=== PATIENT | female | born 1945 | race Caucasian/White ===

== ENCOUNTER → 2022-04-01 14:28 | Outpatient (CLI) | payer MEDICARE, SELFPAY ==
--- NOTE | ~2022-04-01 | DEXA_ITS ---
Bone Density Report Name: ANALI ERICKSON Age: 77 Sex: Female Ethnicity: White Date of : 1945 Indication: osteopenia; height loss; postmenopausal Referring Provider: YRN SOW Study: Bone densitometry was performed. Exam Date: April 01, 2022 Accession number: [id number] Bone Density: Region BMD T-score Z-score Classification AP Spine (L1-L4) 0.897 -1.4 1.1 Osteopenia Femoral Neck (Left) 0.581 -2.4 -0.2 Osteopenia Total Hip (Left) 0.752 -1.6 0.3 Osteopenia Femoral Neck (Right) 0.570 -2.5 -0.3 Osteoporosis Total Hip (Right) 0.739 -1.7 0.2 Osteopenia Total Hip Mean 0.746 -1.7 0.3 Osteopenia World Health Organization criteria for BMD impression classify patients as: Normal (T-score at or above -1.0), Osteopenia (T-score between -1.0 and -2.5), or Osteoporosis (T-score at or below -2.5). 10-year Fracture Risk: FRAX not reported because: Some T-score for Spine Total or Hip Total or Femoral Neck at or below -2.5 Previous Exams: Region Exam Age BMD T-score BMD Change BMD Change Date g/cm2 vs Baseline vs Previous AP Spine(L1-L4) 04/01/2022 77 0.897 -1.4 0.061* -0.047* 04/11/2019 74 0.943 -0.9 0.108* 0.009 01/25/2016 70 0.935 -1.0 0.099* 0.021 08/06/2012 67 0.914 -1.2 0.079* 0.026* 08/04/2010 65 0.888 -1.4 0.053* 0.010 07/03/2009 64 0.878 -1.5 0.043* 0.049* 06/16/2008 63 0.829 -2.0 -0.006 -0.006 01/23/2006 60 0.835 -1.9 Total Hip(Left) 04/01/2022 77 0.752 -1.6 -0.016 -0.029* 04/11/2019 74 0.781 -1.3 0.013 -0.005 01/25/2016 70 0.786 -1.3 0.018 -0.014 08/06/2012 67 0.801 -1.2 0.033* 0.030* 08/04/2010 65 0.771 -1.4 0.003 -0.071* 07/03/2009 64 0.841 -0.8 0.073* 0.095* 06/16/2008 63 0.746 -1.6 -0.022 -0.022 01/23/2006 60 0.768 -1.4 Total Hip(Right) 04/01/2022 77 0.739 -1.7 -0.061* -0.009 04/11/2019 74 0.748 -1.6 -0.052* -0.031* 01/25/2016 70 0.779 -1.3 -0.021 0.014 08/06/2012 67 0.766 -1.4 -0.035* 0.018 08/04/2010 65 0.748 -1.6 -0.052* -0.050* 07/03/2009 64 0.798 -1.2 -0.003 0.067* 06/16/2008 63 0.730 -1.7 -0.070* -0.070* 01/23/2006 60 0.800 -1.2 *Denotes significance at 95% confi
== END ==
PROVIDERS: PCP Family Medicine Adolescent Medicine; Visit Provider Family Medicine Adolescent Medicine
DX: Z78.0 Asymptomatic menopausal state (principal); M85.88 Other specified disorders of bone density and structure, other site; M81.0 Age-related osteoporosis without current pathological fracture; M85.852 Other specified disorders of bone density and structure, left thigh
CPT/HCPCS: 77080

== ENCOUNTER 2024-05-22 07:28 | Day surgery (SDC) | payer MEDICARE, SELFPAY ==
[2024-05-06 11:47] VITALS: BMI 19.1
[2024-05-08 12:34] VITALS: BMI 19.3
[2024-05-22 08:14] VITALS: BP 132/70; PULSE 77; RESP 18; TEMP 36.8; O2SAT 100; BMI 18.3
[2024-05-22] MEDS: LACTATED RINGERS 1,000 ML 150 ML IV CONT (08:28)
--- NOTE | 2024-05-22 08:44 | WPDANESEPPF ---
Anes - Initial Pre Proc Eval Procedure: Operation Date: 05/22/24 09:30 Proposed Procedures p Screening Colonoscopy - Emeka Torres MD Date/Time: 05/22/24 08:44 Surgeon: Emeka Torres MD Pre Op Diagnosis: Screening neoplasm of the colon Patient Data Age: 79 Gender: F Height: 1.55 m Weight: 44.2 kg Last Vital Signs Temp 36.8 C 05/22/24 08:14 Pulse 77 05/22/24 08:14 Resp 18 05/22/24 08:14 BP 132/70 05/22/24 08:14 Pulse Ox 100 05/22/24 08:14 O2 Del Method Room Air 05/22/24 08:14 Allergies Allergy/AdvReac Type Severity Reaction Status Date / Time No Known Allergies Allergy Verified 05/22/24 08:11 Home Medications Medication Instructions Recorded Confirmed Type calcium citrate 315 mg 2 tablet PO BID 01/21/22 05/22/24 History calcium-vitamin D3 6.25 mcg (250 unit) tablet (Citracal + Vitamin D Maximum) flaxseed oil 1,000 mg capsule 1,000 mg PO DAILY 01/21/22 05/22/24 History ([place]-3 Flaxseed Oil) alendronate 70 mg tablet See Rx Instructions .Route 03/04/24 05/22/24 Rx .COMPLEX #12 tabs Patient hx anesthesia problems: none Family hx anesthesia problems: none Results Review: All pre-operative results and documents have been reviewed as part of the pre-operative evaluation. PMFSH Past Medical History Medical History Osteopenia Family History Family History Father Dementia Mother Breast cancer Carcinoma of colon Social History Social History Smoking status: Never smoker Second hand tobacco smoke exposure: No Alcohol intake: current Drinks per week: 1 Substance use: never Substance use type: does not use Living arrangements: alone Occupation/Education: retired Gender identity (if verbalized by the patient): Female Sexual Orientation (if Verbalized by the Patient): Straight or Heterosexual Spiritual care concerns: No Agree to blood products: Yes Anes - Eval Final PreProcedure Day of Procedure 05/22/24 08:44 Patient weight: normal Heart: regular rate and rhythm Lungs: clear to auscultation Airway: Mallampati scale class 1 Neurological: alert and oriented Last oral intake: >/= 8 hours ASA classification: II Emergent: no Anesthetic plan: proceed Anesthesia type and monitoring: general GIVS Results Review: All pre-operative results and documents have been reviewed as part of the pre-operative evaluation. Informed Consent: The patient's anesthetic plan and its attendant risks and benefits were discussed with the patient/family/POA. Questions were solicited and answers provided to the satisfaction of the patient/family/POA.
--- NOTE | 2024-05-22 09:04 | P.HP_ITS ---
History of Present Illness History of Present Illness Consent: Risks, benefits, and alternatives have been discussed and questions answered. Patient agrees to proceed with procedure. Chief complaint: Screening neoplasm of the colon Narrative: Elba Sandoval is a 79 year old female presents for screening colonoscopy. Patient's current weight appetite and bowel movements are normal. Patient denies abdominal pain. She has had no bleeding. Family history is significant that her mother had colon cancer at an elderly age. Additionally her sister had several small colon polyps. Patient has never slowly had a colonoscopy. Review of Systems Review of Systems: All systems reviewed & are unremarkable except as noted in HPI and below PMFSH Past Medical History Medical History Osteopenia Family History Family History Father Dementia Mother Breast cancer Carcinoma of colon Social History Social History Smoking status: Never smoker Second hand tobacco smoke exposure: No Alcohol intake: current Drinks per week: 1 Substance use: never Substance use type: does not use Living arrangements: alone Occupation/Education: retired Gender identity (if verbalized by the patient): Female Sexual Orientation (if Verbalized by the Patient): Straight or Heterosexual Spiritual care concerns: No Agree to blood products: Yes Meds Home Medications and Allergies Home Medications Medication Instructions Recorded Confirmed Type calcium citrate 315 mg 2 tablet PO BID 01/21/22 05/22/24 History calcium-vitamin D3 6.25 mcg (250 unit) tablet (Citracal + Vitamin D Maximum) flaxseed oil 1,000 mg capsule 1,000 mg PO DAILY 01/21/22 05/22/24 History ([place]-3 Flaxseed Oil) alendronate 70 mg tablet See Rx Instructions .Route 03/04/24 05/22/24 Rx .COMPLEX #12 tabs Allergies Allergy/AdvReac Type Severity Reaction Status Date / Time No Known Allergies Allergy Verified 05/22/24 08:11 Vital Signs Vital Signs - 24 hr 05/22/24 08:14 Temperature 98.2 F Pulse Rate 77 Respiratory Rate 18 Blood Pressure 132/70 Pulse Oximetry 100 Oxygen Delivery Room Air Exam Narrative: Physical exam reveals patient to be alert. Vital signs stable. HEENT exam is unremarkable. Patient is is are clear to auscultation and to percussion part is without murmur or extra sounds. Abdomen bowel sounds are present soft nontender with no organomegaly. Digital external rectal exam normal. Assessment and Plan Assessment and plan (1) Colon cancer screening: Code(s): Z12.11 - Encounter for screening for malignant neoplasm of colon Status: Acute Assessment and Plan: Patient referred for neoplasia SP. Family history is significant her mother had colon cancer, and sister had a polyp. Further recommendations may be given after endoscopy.
[2024-05-22 10:03] VITALS: BP 109/55; PULSE 78; RESP 16; O2SAT 100
[2024-05-22 10:13] VITALS: BP 105/54; PULSE 69; RESP 16; O2SAT 100
--- NOTE | 2024-05-22 10:16 | WPDANESPN ---
Anes - Prog Note Post-Op Date/Time: 05/22/24 10:16 Cardiovascular status: normal Respiratory status: normal Airway patency: baseline Mental status: baseline Post-Op hydration status: normal Vital Signs: Last Vital Signs Temp 36.8 C 05/22/24 08:14 Pulse 78 05/22/24 10:03 Resp 16 05/22/24 10:03 BP 109/55 L 05/22/24 10:03 Pulse Ox 100 05/22/24 10:03 O2 Del Method Room Air 05/22/24 10:03 Pain Score (VAS): 0 I/O: Intake & Output 05/21/24 05/22/24 05/22/24 23:59 07:59 15:59 Intake Total 600 Balance 600 Post-procedural complaints: none Patient Feedback: Patient satisfied with anesthetic care. Other Findings: Patient vital signs back to baseline. Patient denies nausea and vomiting. Patient's pain under control. Patient OK for discharge.
[2024-05-22 10:23] VITALS: BP 114/63; PULSE 73; RESP 16; O2SAT 100
== END 2024-05-22 10:40 | disposition home or self-care (01) ==
PROVIDERS: PCP Family Medicine Adolescent Medicine; Visit Provider Internal Medicine Gastroenterology
PROC: 0DJD8ZZ Inspection of Lower Intestinal Tract, Via Natural or Artificial Opening Endoscopic (ICD-10-PCS; CPT 45378; principal; 2024-05-22 09:30)
DX: Z12.11 Encounter for screening for malignant neoplasm of colon (principal); D12.3 Benign neoplasm of transverse colon; K64.8 Other hemorrhoids; D37.4 Neoplasm of uncertain behavior of colon
CPT/HCPCS: 45385; 45380

== ENCOUNTER 2024-05-22 07:48 | Outpatient (NON) | payer MEDICARE, SELFPAY | END 2024-05-22 07:49 | disposition home or self-care (01) | LOC: ANHLAB 05-23 07:49 | PROVIDERS: PCP Family Medicine Adolescent Medicine; Visit Provider Internal Medicine Gastroenterology | DX: Z12.11 Encounter for screening for malignant neoplasm of colon (principal); C18.0 Malignant neoplasm of cecum; D12.3 Benign neoplasm of transverse colon | CPT/HCPCS: 88305; 88342 ==

== ENCOUNTER 2024-05-28 13:17 | Outpatient (CLI) | payer MEDICARE, SELFPAY ==
--- NOTE | ~2024-05-28 | DEXA_ITS ---
Bone Density Report Name: ANALI ERICKSON Age: 79 Sex: Female Ethnicity: White Date of : 1945 Indication: postmenopausal; screening for osteoporosis; height loss; Referring Provider: YRN OSW Study: Bone densitometry was performed. Exam Date: May 28, 2024 Accession number: [id number] Bone Density: Region BMD T-score Z-score Classification AP Spine(L1-L4) 0.968 -0.7 1.9 Normal Femoral Neck (Left) 0.581 -2.4 -0.1 Osteopenia Total Hip (Left) 0.735 -1.7 0.3 Osteopenia Femoral Neck (Right) 0.607 -2.2 0.1 Osteopenia Total Hip (Right) 0.698 -2.0 0.0 Osteopenia Total Hip Mean 0.717 -1.9 0.2 Osteopenia World Health Organization criteria for BMD impression classify patients as: Normal (T-score at or above -1.0), Osteopenia (T-score between -1.0 and -2.5), or Osteoporosis (T-score at or below -2.5). 10-year Fracture Risk: FRAX not reported because: Treated for osteoporosis Clinical Information Provided by Patient: Is being treated for osteoporosis Has used the following medications: Fosamax (i.e. alendronate), Vitamin D, Calcium Patient maximum height was 62 Menopause Age: 50 Drinks caffeinated beverages Onset of menses at age 15 Number of children 1 Impression: The patient has low bone mass, based on the Left Femoral Neck T-score. Discussion: It is important to ask patients whether they are taking their medications and to encourage continued and appropriate compliance with their osteoporosis therapies to reduce fracture risk. It is also important to review their risk factors and encourage appropriate calcium and vitamin D intakes, exercise, fall prevention and other lifestyle measures. Follow-Up: Consider a repeat BMD and Vertebral Fracture Assessment (VFA) exam in 2 years or sooner if medically necessary, to reassess this patient's status. Reported by: CRICKET on 05/28/2024 1:52:00 PM. Reviewed, dictated and finalized at location ADemetra ROSADO
--- NOTE | ~2024-05-28 | MM_ITS ---
EXAMINATION: MM screening baldemar BI w kosta HISTORY: Screening mammogram, family history of breast cancer in her mother. TECHNIQUE: Craniocaudal and mediolateral oblique 3-D tomosynthesis images were obtained and synthetic 2-D images were generated. CAD analysis was submitted and interpreted. COMPARISON: 04/11/2019, 08/06/2012 BREAST PARENCHYMAL COMPOSITION:Dense: The breasts are heterogeneously dense, which may obscure small masses. FINDINGS: No suspicious mass, calcification, or architectural distortion are identified in either konrad ast to suggest malignancy. There has been no suspicious interval change. IMPRESSION: No mammographic evidence of malignancy. Recommend routine screening mammography in one year. BI-RADS Category 1: Negative Reviewed, dictated and finalized at location .
== END 2024-05-28 13:18 | disposition home or self-care (01) ==
LOC: ANHIMG 13:17
PROVIDERS: PCP Family Medicine Adolescent Medicine; Visit Provider Family Medicine Adolescent Medicine
DX: Z12.31 Encounter for screening mammogram for malignant neoplasm of breast (principal); N95.9 Unspecified menopausal and perimenopausal disorder; Z78.0 Asymptomatic menopausal state; Z80.3 Family history of malignant neoplasm of breast
CPT/HCPCS: 77063; 77067; 77080

== ENCOUNTER 2024-06-27 11:46 | Outpatient (CLI) | payer MEDICARE, SELFPAY ==
--- NOTE | 2024-06-27 12:40 | ECG_ITS ---
Test Date: 2024-06-27 12:46:06 Measurements Intervals [place] Rate: 62 P: 64 ID: 150 QRS: 50 QRSD: 78 T: 37 QT: 393 QTc: 402 Interpretive Statements SINUS RHYTHM NORMAL ELECTROCARDIOGRAM No previous ECG available for comparison Electronically Signed On 06-27-2024 16:09:32 CDT by Tomasz Mott M.D.
[2024-06-27 12:56] LABS: Hematocrit 28.6 % (37.0-47.0); Mean Corpuscular HGB Conc 31.5 g/dl (32-36); Mean Corpuscular Hemoglobin 24.1 pg (26-34); Mean Corpuscular Volume 76.5 fl (80-100); Mean Platelet Volume 9.9 fl (7.4-10.4); Platelet Count Result 469 k/mm3 (150-375); Red Blood Count 3.74 M/mm3 (4.2-5.4); Red Cell Distribution Width 17.6 % (11.5-14.5); White Blood Count 9.6 K/mm3 (4.5-10.0)
[2024-06-27 13:36] LABS: Carcinoembryonic Antigen 68.9 ng/mL (0.0-3.0)
== END 2024-06-27 11:47 | disposition home or self-care (01) ==
LOC: ANHSURGERY 11:50
PROVIDERS: PCP Family Medicine Adolescent Medicine; Visit Provider Surgery
DX: Z01.818 Encounter for other preprocedural examination (principal); C18.0 Malignant neoplasm of cecum
CPT/HCPCS: 36415; 82378; 85027; 86850; 86900; 86901; 93005

== ENCOUNTER 2024-06-28 13:41 | Outpatient (CLI) | payer MEDICARE, SELFPAY ==
--- NOTE | ~2024-06-28 | CT_ITS ---
CT chest abdomen pelvis w con Ordering provider: Robbi Acevedo DO History: 79 years Female with . 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 Comparison: None. Technique: CT chest with IV contrast. CT abdomen and pelvis CT abdomen and pelvis with IV and with or al contrast. Radiation reduction technique utilized. The dose-length product was 265.6 mGy-cm. FINDINGS: CHEST: --VISUALIZED THORACIC INLET: Normal. --MEDIASTINUM: Aorta/coronary arteries: The thoracic aorta is normal. Ascending aorta measures 3 cm. Minimal pericar dial effusion. Heart/other: The heart is not enlarged. Lymph nodes: No mediastinal or hilar adenopathy. --LUNGS: Nodule is seen in the right lower lobe measuring 5 mm. Nodule is seen in the left lower lobe measuring 3 mm. Tiny nodule in the right middle lobe is possible. Left pleural base nodule also seen measuring 5 mm. Atelectatic changes in the left lower lobe. No pulmonary masses. No infiltrates or e ffusions. No pneumothorax. --MUSCULOSKELETAL: Soft tissues: The superficial soft tissues are normal. Bones: Age appropriate degenerative changes of the spine. No suspicious bony lytic or sclerotic lesio ns. Levoscoliosis. Increased kyphosis. ABDOMEN/PELVIS: --MUSCULOSKELETAL: Bones: Age appropriate degenerative changes of the spine. No suspicious bony lytic or sclerotic lesio ns. Superficial soft tissues: The superficial soft tissues are normal. --UPPER ABDOMINAL ORGANS: Liver: Mild fat infiltration. Gallbladder: Normal. Spleen: Normal. Stomach/duodenum: Slightly thickened wall of the bilateral. Pancreas: Normal. Adrenals: Normal. Kidneys: Tiny cyst in the right kidney upper pole. --PELVIC ORGANS: The bladder shows slightly thickened wall. No bladder stones. Congested vessels are seen around the uterus suggestive of varicosities which indicate pelvic congestion syndrome. Colon: No evidence of diverticulitis. Soft tissue density in the cecum which is most likely a mass. C olonoscopy advised. Fecal material is loaded in the colon. No evidence of appendicitis. Small Bowel: Normal. No obstruction. Peritoneum/mesentery: No free air or free fluid. No mesenteric lymphadenopathy. --RETROPERITONEUM: Normal aorta. No retroperitoneal lymphadenopathy. IMPRESSION: CHEST: 1. No acute cardiopulmonary pathology. 2. Minimal pericardial effusion. 3. Multiple nodules with the largest measuring 5 mm. 6 months follow-up CT is advised. ABDOMEN/PELVIS: 1. Soft tissue density in the cecum suggestive of a mass. Colonoscopy advised. 2. Constipation 3. Prominent vessels in both sides of the pelvis suggestive of pelvic congestion syndrome. 4. Minimal fat infiltration of the liver. Reviewed, dictated and finalized at location A. IMPRESSION: CHEST: 1. No acute cardiopulmonary pathology. 2. Minimal pericardial effusion. 3. Multiple nodules with the largest measuring 5 mm. 6 months follow-up CT is advised. ABDOMEN/PELVIS: 1. Soft tissue density in the cecum suggestive of a mass. Colonoscopy advised. 2. Constipation 3. Prominent vessels in both sides of the pelvis suggestive of pelvic congesti on syndrome. 4. Minimal fat infiltration of the liver.
== END 2024-06-28 13:42 | disposition home or self-care (01) ==
PROVIDERS: PCP Family Medicine Adolescent Medicine; Visit Provider Surgery
DX: K59.00 Constipation, unspecified (principal); R91.8 Other nonspecific abnormal finding of lung field; C18.0 Malignant neoplasm of cecum
CPT/HCPCS: 71260; 74177; Q9967

== ENCOUNTER 2024-07-09 12:58 | Inpatient (IN) | payer MEDICARE, SELFPAY ==
[2024-06-27 11:54] VITALS: BMI 19.4
--- NOTE | 2024-06-27 12:13 | PC.NURSE ---
Report to the Outpatient Waiting Room, entrance under the green pavilion located off [facility], at time _7:30 AM on date 07/09/24 . Planned Procedure Time: __9:30 AM .? Time changes happen often and if your time is changed the preop area will call you the afternoon before. - You and your visitor will be asked to self-screen and do not enter if you have any COVID symptoms. Please call surgeon if you need to reschedule. - A mask is optional within the hospital at this time. Patients may have clear liquids (water, carbonated beverages, clear teas, apple juice) until 3 hours prior to surgery( 6:30 AM) with a maximum of 20 ounces. - No food from midnight until time of surgery and no smoking - Infants may have breast milk until 4 hours before surgery, formula 6 hours prior to surgery. - Children will be allowed to drink immediately following surgery.? If applicable, please bring a bottle or sippy cup to assist with drinking. Juice, water, soda, and popsicles are readily available.? For infants on formula, please bring formula the day of surgery.? Pacifiers are allowed. Take only the following medications with a SIP of water on the morning of surgery: NONE DO NOT STOP ANY OF YOUR OTHER PRESCRIPTION MEDICATIONS PRIOR TO SURGERY EXCEPT THE FOLLOWING Medications to discontinue per physician _HOLD ALL VITAMINS AND SUPPLEMENTS 3 DAYS PRE OP. Date to take last dose__07/05/[address] OLMSTEAD ENSURE BUNDLE PACK PER DR OLMSTEAD [facility] SHOWER DAY BEFORE SURGERY AND MORNING OF SURGERY Please no make-up, nail upper sorbian, hairspray, perfume, deodorant, or body powder the day of surgery.? No jewelry (including any body piercings) or valuables the day of surgery, leave them at home.? Please take a shower or bath the night before, or the morning of, surgery with an antibacterial soap.? Wear comfortable, loose fitting clothing.? Children are encouraged to wear pajamas. - Jewelry must be removed prior to entering the operating room.? Rings and piercings that are not removed may be cut off. - The hospital will not accept responsibility for valuables.? - Please leave all valuables, including medications, at home the day of surgery. If you are going home after surgery, a licensed route delivery service driver must drive you home.? - NO public transportation without another adult if you receive anesthesia. - We recommend that an adult stay with you for 24 hours following discharge. - We also recommend that you do not drive, make important decision, drink alcoholic beverages, or take any drugs that were not prescribed by your health care provider for at least 24 hours after your discharge time. Follow any additional instructions given to you from your surgeon. VERBAL AND WRITTEN instructions given to ___PATIENT and asked if any additional questions and then verbalized understanding. Patient advised to call surgeon office or pre surgery nurse liaison [phone] if any additional questions.
[2024-06-27 12:39] VITALS: BP 122/57; PULSE 69; RESP 18; TEMP 37.4; O2SAT 98
[2024-07-09] VITALS (13 sets, daily range): BP systolic 96–133; BP diastolic 42–75; PULSE 65–83; RESP 12–20; TEMP 35.9–37.1; O2SAT 94–100; BMI 19.6
[2024-07-09] MEDS: LACTATED RINGERS 1,000 ML 30 ML IV CONT ×2 (07:55→11:42)
[2024-07-09] MEDS: ACETAMINOPHEN 500 MG TABLET 1000 MG PO (08:05)
[2024-07-09] MEDS: KETOROLAC 15 MG/ML VIAL (*BKC) IV PUSH (08:06)
--- NOTE | 2024-07-09 08:13 | WPDANESEPPF ---
Anes - Initial Pre Proc Eval Procedure: Operation Date: 07/09/24 09:30 Proposed Procedures p Laparoscopic Right Hemicolectomy Davinci Assisted - Robbi Acevedo DO Date/Time: 07/09/24 08:13 Surgeon: Robbi Acevedo DO Pre Op Diagnosis: cecal cancer Patient Data Age: 79 Gender: F Height: 1.52 m Weight: 45.1 kg Last Vital Signs Temp 37.4 C 06/27/24 12:39 Pulse 69 06/27/24 12:39 Resp 18 06/27/24 12:39 BP 122/57 L 06/27/24 12:39 Pulse Ox 98 06/27/24 12:39 O2 Del Method Room Air 06/27/24 12:39 Allergies Allergy/AdvReac Type Severity Reaction Status Date / Time No Known Allergies Allergy Verified 07/09/24 07:41 Home Medications Medication Instructions Recorded Confirmed Type calcium 315 mg (as 2 tablet PO BID 01/21/22 07/09/24 History citrate)-vitamin D3 6.25 mcg (250 unit) tablet (Citracal + Vitamin D Maximum) flaxseed oil 1,000 mg capsule 1,000 mg PO DAILY 01/21/22 07/09/24 History ([place]-3 Flaxseed Oil) alendronate 70 mg tablet See Rx Instructions .Route 03/04/24 07/09/24 Rx .COMPLEX #12 tabs ciprofloxacin HCl 500 mg tablet See Rx Instructions .Route 06/24/24 07/09/24 Rx .COMPLEX #1 tablet metronidazole 500 mg tablet See Rx Instructions .Route 06/24/24 07/09/24 Rx .COMPLEX #3 tabs multivitamin 1 tablet PO DAILY 06/27/24 07/09/24 History Patient hx anesthesia problems: none Family hx anesthesia problems: none Results Review: All pre-operative results and documents have been reviewed as part of the pre-operative evaluation. [facility] Past Medical History Medical History Cecal cancer Osteopenia Surgical History Surgical History History of colonoscopy 05/22/24 Dr. Torres Family History Family History Father Dementia Mother Breast cancer Carcinoma of colon Social History Social History Smoking status: Never smoker Second hand tobacco smoke exposure: No Alcohol intake: current Drinks per week: 1 Substance use: never Substance use type: does not use Do You Feel Safe in your Home?: Yes Lack of Transportation: No Lack of Food: Never True Current Housing: I Have Housing Concerned About Future Housing: No Difficulty Paying Gas/Electric Bills: No Difficulty Paying for Meds: No Currently Unemployed: No Education: Master's Degree or Higher Difficulty w/ Childcare or Family Care: No Living arrangements: alone Occupation/Education: retired Gender identity (if verbalized by the patient): Female Sexual Orientation (if Verbalized by the Patient): Straight or Heterosexual Spiritual care concerns: No Agree to blood products: Yes Anes - Eval Final PreProcedure Day of Procedure 07/09/24 08:13 Patient weight: normal Heart: regular rate and rhythm Lungs: clear to auscultation Airway: Mallampati scale class 1 Neurological: alert and oriented Last oral intake: >/= 8 hours ASA classification: III Emergent: no Anesthetic plan: proceed Anesthesia type and monitoring: general ETT and standard monitoring Results Review: All pre-operative results and documents have been reviewed as part of the pre-operative evaluation. Informed Consent: The patient's anesthetic plan and its attendant risks and benefits were discussed with the patient/family/POA. Questions were solicited and answers provided to the satisfaction of the patient/family/POA.
--- NOTE | 2024-07-09 08:34 | WPDHPUPDATE1 ---
History and Physical Update Update Date/Time: 07/09/24 08:34 History and Physical has been reviewed, including an updated exam of the patient. There are NO changes in the patient's condition. Risks, benefits, and alternatives have been discussed and questions answered. Patient agrees to proceed with procedure.
[2024-07-09] MEDS: ceFAZolin 2 GM/D5W 50 ML 2 GM/50 ML BAG IVPB (09:00)
[2024-07-09] MEDS: metroNIDAZOLE 500 MG/ISO 100ML 500 MG/100 ML BAG 100 MG IVPB (09:18)
[2024-07-09] MEDS: BUPIVACAINE/EPINEPHRINE 0.5% 50 ML VIAL 30 ML INFILTRATE (09:39)
[2024-07-09] MEDS: INDOCYANINE GREEN 25 MG VIAL WITH DILUENT 3.75 MG IV PUSH (10:24)
--- NOTE | 2024-07-09 11:40 | W.PM.PROC2 ---
Procedure Note - Detailed Date of Procedure 07/09/24 Pre-op Diagnosis cecal cancer Post-op Diagnosis Same Procedure Performed Laparoscopic right hemicolectomy with ileocolic anastomosis, da Valentin assisted Surgeon Robbi Acevedo, Anesthesia General and Local (0.5% bupivacaine with epinephrine) Description of Procedure Procedure as well as risks, benefits, and alternatives were discussed with the patient.? Written consent was obtained and placed in chart prior to procedure.? Patient was brought back to surgical suite.? She was placed supine on operating table.? Time-out was done to confirm patient and procedure.? She was then intubated by the anesthesia department.? Her abdomen was prepped and draped in sterile fashion using chlorhexidine prep.? An 8 mm incision was made in the left upper quadrant and a 5 mm Optiview trocar was advanced through the abdominal layers under direct visualization.? Once inside the abdominal cavity, carbon dioxide insufflation was used to create a pneumoperitoneum.? Camera was inserted in the abdomen was inspected.? The patient was placed in 5 degree Trendelenburg and 5? rotated left an 8 mm incision was made in the suprapubic region in midline and an 8 mm trocar was inserted under direct visualization. Another 8 mm incision was made in the left lower quadrant and an 8 mm trocar was inserted under direct visualization.? A 12 mm incision was made in the left lateral abdomen and a 12 mm trocar was inserted under direct visualization.? An 5 mm incision was made in the left lower quadrant and an 5 mm assist port was placed under direct visualization.? The 5 mm left upper quadrant port was then removed and exchanged for an 8 mm port.? The robotic arms were then brought up to the patient's bedside and secured to the ports.? The camera and instruments were then inserted.? I then moved over to the robotic console and took control of the camera and instruments.? Thorough inspection was made around the abdominal cavity.? The omentum was then reflected cephalad over the transverse colon.? The area near the ileocecal valve was grasped and retracted anterior and laterally to tent up the ileocolic pedicle.? Scissors with electrocautery were then used to perform the medial to lateral dissection.? I entered into the avascular plane just inferior to the ileocolic pedicle and carefully dissected cephalad to identify the duodenum.? Once the duodenum was identified and then continued sweeping the retroperitoneal structures posteriorly and then isolated the ileocolic pedicle.? A high ligation of the ileocolic vessels was then performed using the vessel sealer.? Hemostasis appeared adequate.? The medial to lateral dissection was then continued cephalad towards the hepatic flexure.? I continued this dissection until I created a window in the hepatocolic ligament.? I then took down the hepatic flexure using the vessel sealer and then continued this dissection caudally along the lateral peritoneal reflections of the ascending colon.? The root of the mesentery at the terminal ileum was then also taken down using scissors with electrocautery to allow adequate mobilization of the terminal ileum up to the transverse colon.? I then used the vessel sealer to continue taken down the mesentery of the terminal ileum all the way to the point of transection and then I also took down the mesocolon towards the point of transection for the transverse colon.? The right branch of the middle colic artery was ligated as the mesocolon was taken down using the vessel sealer.? Indocyanine green was then infused to ensure adequate perfusion to the proximal and distal limbs.? I confirmed adequate perfusion at the point of transection and then used a 60 mm blue load stapler to come across the terminal ileum.? I then identified my point for? proximal transverse colon transection and again came across the colon at this point with a 60 mm blue load stapler.? Once this was done the right colon was c
--- NOTE | 2024-07-09 13:14 | ADMGEN ---
This patient, Elba Sandoval, was admitted to [facility] Surg Room 330-02. Patient/family oriented to hospital policies and general routines including ID bracelet, bed and alarms, visiting hours, pain management, procedures, bathroom and other care routines, personal items, smoking policy, room service/diet, and visiting hours. Information on how to activate the Rapid Response Team has been discussed. Patient/Family are encouraged to report perceived risks to care and to ask questions if they do not understand what they are told or what they should do.
[2024-07-09] MEDS: ACETAMINOPHEN 325 MG TABLET 650 MG PO ×2 (13:20→17:03)
[2024-07-09] MEDS: LACTATED RINGERS 1,000 ML 75 ML IV CONT (13:20)
[2024-07-10] VITALS (7 sets, daily range): BP systolic 93–133; BP diastolic 41–63; PULSE 56–70; RESP 18–22; TEMP 36.6–37.5; O2SAT 97–98
[2024-07-10] MEDS: ACETAMINOPHEN 325 MG TABLET 650 MG PO ×5 (00:56→23:01)
[2024-07-10] MEDS: LACTATED RINGERS 1,000 ML 75 ML IV CONT (00:58)
[2024-07-10 07:09] LABS: Hematocrit 23.4 % (37.0-47.0); Hemoglobin 7.2 g/dL (12.0-15.0); Mean Corpuscular HGB Conc 30.8 g/dl (32-36); Mean Corpuscular Hemoglobin 23.6 pg (26-34); Mean Corpuscular Volume 76.7 fl (80-100); Mean Platelet Volume 10.3 fl (7.4-10.4); Platelet Count Result 419 k/mm3 (150-375); Red Blood Count 3.05 M/mm3 (4.2-5.4); Red Cell Distribution Width 17.2 % (11.5-14.5)
[2024-07-10 07:17] LABS: Anion Gap 3 mmol/L (4-12); Blood Urea Nitrogen 7 mg/dL (7-17); Calcium 8.1 mg/dL (8.4-10.2); Carbon Dioxide 26 mmol/L (22-30); Chloride 100 mmol/L (98-107); Estimated CRCL calculation 40 ml/min; Estimated Glomerular Filt Rate > 60; Glucose 87 mg/dL (65-110); Potassium 3.2 mmol/L (3.4-5.0); Sodium 129 mmol/L (137-145)
[2024-07-10] MEDS: SODIUM CHLORIDE 0.9% IV 1,000 ML 75 ML IV CONT (10:07)
[2024-07-10] MEDS: POTASSIUM CHLORIDE 20 MEQ ER TABLET 40 MEQ PO (10:10)
[2024-07-10] MEDS: ENOXAPARIN 40 MG/0.4 ML SYRINGE SUB-Q (10:11)
--- NOTE | 2024-07-10 10:43 | PM.PNGS ---
Progress Note: A&P Assessment and Plan (1) Cecal cancer: Code(s): C18.0 - Malignant neoplasm of cecum Status: Acute Assessment and Plan: Doing well on POD#1. Advance to full liquid diet for lunch, then continue advancing as tolerated. Final pathology pending. (2) Anemia due to chronic blood loss: Code(s): D50.0 - Iron deficiency anemia secondary to blood loss (chronic) Status: Acute Assessment and Plan: Minimal blood loss during surgery. No signs of active bleeding. 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 Will continue to monitor. (3) Hyponatremia: Code(s): E87.1 - Hypo-osmolality and hyponatremia Status: Acute Assessment and Plan: IV fluids changed to NS. Will stop IV fluids this afternoon since patient is tolerating PO. (4) Hypokalemia: Code(s): E87.6 - Hypokalemia Status: Acute Assessment and Plan: Replaced this AM. Repeat labs tomorrow. Subjective Subjective Date/Time Seen: 07/10/24 10:43 Interval history: Doing well. Tolerating clears. Bowels moved a little already and passing flatus. Pain minimal. Ambulating in halls. Exam GI: Inspection: non-distended and incision (intact with glue) GI Palp: Yes Soft to palpation, No Tenderness to palpation present (GI) and No Guarding due to palpation present (GI) Auscultation: normal bowel sounds Objective Data Vital Signs Vital Signs: Vital Signs - 24 hr 07/09/24 11:42 07/09/24 11:50 07/09/24 12:05 Temperature 97.5 F L Pulse Rate 83 74 72 Respiratory Rate 12 14 18 Blood Pressure 128/62 129/62 113/55 L Pulse Oximetry 100 100 100 Oxygen Delivery Simple Face Mask Simple Face Mask Simple Face Mask Oxygen Flow Rate 8 8 8 07/09/24 12:20 07/09/24 12:35 07/09/24 12:50 Temperature Pulse Rate 74 68 68 Respiratory Rate 16 14 16 Blood Pressure 118/61 106/75 106/57 L Pulse Oximetry 94 95 96 Oxygen Delivery Room Air Room Air Nasal Cannula Oxygen Flow Rate 2 07/09/24 12:58 07/09/24 13:40 07/09/24 14:43 Temperature 98.2 F 97.9 F 96.6 F L Pulse Rate 65 75 71 Respiratory Rate 16 16 18 Blood Pressure 103/51 L 104/50 L 96/52 L Pulse Oximetry 100 100 98 Oxygen Delivery Oxygen Flow Rate 07/09/24 14:43 07/09/24 16:01 07/09/24 18:43 Temperature 96.6 F L 96.7 F L Pulse Rate 71 71 70 Respiratory Rate 18 18 16 Blood Pressure 96/52 L 108/42 L Pulse Oximetry 98 98 96 Oxygen Delivery Room Air Oxygen Flow Rate 07/09/24 20:45 07/10/24 00:20 07/10/24 05:00 Temperature 98.7 F 98.5 F 99.1 F Pulse Rate 65 65 61 Respiratory Rate 16 18 22 H Blood Pressure 115/53 L 133/63 123/60 Pulse Oximetry 97 98 97 Oxygen Delivery Oxygen Flow Rate 07/10/24 08:00 07/10/24 08:00 Temperature 99 F 99 F Pulse Rate 70 70 Respiratory Rate 18 18 Blood Pressure 93/41 L 93/41 L Pulse Oximetry 98 98 Oxygen Delivery Oxygen Flow Rate Intake/Output Intake/Output: Intake & Output 07/07/24 07/08/24 07/09/24 07/10/24 23:59 23:59 23:59 23:59 Intake Total 587 1659.5 Balance 587 1659.5 Meds/Results Medications: Active Medications Generic Name Dose Route Start Last Admin Trade Name Freq PRN Reason Stop Dose Admin Acetaminophen 650 mg 07/09/24 12:58 07/10/24 05:31 Acetaminophen 325 Mg Tablet PO 650 mg Q6HR ZENY Administration Hydrocodone Bitart/Acetaminophen 1 tab 07/09/24 12:58 Hydrocodone/Acetaminophen (*Crx) 5-325 Mg Tablet PO Q4H PRN Pain Rated 4-6 Hydrocodone Bitart/Acetaminophen 1 tab 07/09/24 12:58 Hydrocodone/Acetaminophen (*Crx) 7.5-325 Mg Tablet PO Q4H PRN Pain Rated 7-10 Enoxaparin Sodium 40 mg 07/10/24 10:00 07/10/24 10:11 Enoxaparin 40 Mg/0.4 Ml Syringe SUB-Q 40 mg DAILY ZENY Administration Sodium Chloride 1,000 mls @ 75 mls/hr 07/10/24 08:40 07/10/24 10:07 Normal Saline Iv IV CONT 75 mls/hr .[id number] ZENY Administration Morphine Sulfate 2 mg 07/09/24 12:58 Morph
--- NOTE | 2024-07-10 14:13 | WPDANESPN ---
Anes - Prog Note Post-Op Date/Time: 07/10/24 14:13 Cardiovascular status: normal Respiratory status: normal Airway patency: baseline Mental status: baseline Post-Op hydration status: normal Vital Signs: Last Vital Signs Temp 37.5 C 07/10/24 12:24 Pulse 63 07/10/24 12:24 Resp 20 07/10/24 12:24 BP 96/42 L 07/10/24 12:24 Pulse Ox 97 07/10/24 12:24 O2 Del Method Room Air 07/09/24 16:01 O2 Flow Rate 2 07/09/24 12:50 Pain Score (VAS): 0/10 I/O: Intake & Output 07/09/24 07/10/24 07/10/24 23:59 07:59 15:59 Intake Total 237 1422.5 477 Balance 237 1422.5 477 Laboratory Tests 07/10/24 06:37 07/10/24 06:37 07/10/24 06:37 WBC 15.0 H RBC 3.05 L Hgb 7.2 L Hct 23.4 L MCV 76.7 L MCH 23.6 L MCHC 30.8 L RDW 17.2 H Plt Count 419 H MPV 10.3 Sodium 129 L Potassium 3.2 L Chloride 100 Carbon Dioxide 26 Anion Gap 3 L BUN 7 Creatinine 0.70 Estim Creat Clear Calc 40 Estimated GFR > 60 Glucose 87 Calcium 8.1 L Post-procedural complaints: none Patient Feedback: Patient satisfied with anesthetic care.
[2024-07-11 05:38] VITALS: BP 115/62; PULSE 63; RESP 14; TEMP 36.4; O2SAT 95
[2024-07-11] MEDS: ACETAMINOPHEN 325 MG TABLET 650 MG PO ×3 (06:04→16:54)
[2024-07-11 06:43] LABS: Hematocrit 26.5 % (37.0-47.0); Mean Corpuscular HGB Conc 30.2 g/dl (32-36); Mean Corpuscular Hemoglobin 22.9 pg (26-34); Mean Corpuscular Volume 75.7 fl (80-100); Mean Platelet Volume 10.2 fl (7.4-10.4); Platelet Count Result 480 k/mm3 (150-375); Red Cell Distribution Width 17.2 % (11.5-14.5); White Blood Count 12.7 K/mm3 (4.5-10.0)
[2024-07-11 07:01] LABS: Magnesium 2.2 mg/dL (1.6-2.3)
[2024-07-11 07:03] LABS: Anion Gap 2 mmol/L (4-12); Blood Urea Nitrogen 7 mg/dL (7-17); Calcium 8.6 mg/dL (8.4-10.2); Carbon Dioxide 28 mmol/L (22-30); Chloride 106 mmol/L (98-107); Estimated CRCL calculation 40 ml/min; Estimated Glomerular Filt Rate > 60; Glucose 85 mg/dL (65-110); Magnesium 2.2 mg/dL (1.6-2.3); Potassium 3.9 mmol/L (3.4-5.0); Sodium 136 mmol/L (137-145)
[2024-07-11] MEDS: ENOXAPARIN 40 MG/0.4 ML SYRINGE SUB-Q (09:27)
--- NOTE | 2024-07-11 11:53 | PM.DS ---
DS: Admitting Diagnosis Discharge Date 07/11/2024 Admitting Diagnosis Cecal adenocarcinoma DS: Discharge Diagnosis Discharge Diagnosis (1) Cecal cancer: Code(s): C18.0 - Malignant neoplasm of cecum Status: Acute (2) Anemia due to chronic blood loss: Code(s): D50.0 - Iron deficiency anemia secondary to blood loss (chronic) Status: Acute DS: Summary Hospital Course Reason for hospitalization: Cecal adenocarcinoma Hospital Course: This is a 79-year-old woman who presented on 07/09/2024 for robotic assisted laparoscopic right hemicolectomy. She has a family history of colon cancer in her mother. She underwent screening colonoscopy on 05/22/2024 and a malignant-appearing cecal mass was identified and biopsied. Biopsies confirmed adenocarcinoma. Her preoperative CEA level was 68. Her CT chest abdomen and pelvis showed multiple 3-5 mm pulmonary nodules but no other concerning findings for metastases. Discussions were made with the patient about further treatment options and option was given to see medical oncology prior to proceeding with surgery, but patient wished to proceed with surgery as scheduled. Surgery was uncomplicated and she was admitted to the surgical floor postoperatively. She was started on clear liquid diet and this was gradually advanced as tolerated. She was passing flatus and having small liquid bowel movements. Her pain was well controlled with oral Tylenol alone. She was up ambulating and walking in the halls. She remained hemodynamically stable. On postop day 1 her hemoglobin was slightly lower than baseline at 7.2. She had no signs of active bleeding and there was minimal blood loss during the surgery. On postop day 2 her hemoglobin returned to 8. She continued to do well postoperatively. Her pathology came back on postop day 2 and showed evidence of T4a N1b adenocarcinoma. 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 Pathology results were discussed with the patient. Referral had already been made to Oncology preoperatively but she has not scheduled a visit yet with them. She was discharged on postop day 2. Status at Discharge Functional status at discharge: independent ambulation Overall status at discharge: patient is progressing back to baseline Time Spent with Patient Time attestation: Total time spent providing and/or coordinating discharge services: Time spent: Less than 30 minutes Exam Const: General: comfortable and no acute distress Orientation/consciousness: patient oriented x3 Resp: Effort & Inspection: normal respiratory effort Auscultation: clear to auscultation bilaterally Cardio: Rate: regular rate Rhythm: regular rhythm Heart sounds: S1 normal heart sound present and S2 normal heart sound present GI: Inspection: non-distended and incision (Intact with glue) GI Palp: Yes Soft to palpation, No Tenderness to palpation present (GI) and No Guarding due to palpation present (GI) Percussion: Yes normal to percussion Auscultation: normal bowel sounds DS: Data Data Completed and Pending Completed studies during hospitalization: Pending at discharge 07/09/24 11:24 Surgical [PTH] Routine Final Diagnosis Large/small intestine, right colon, hemicolectomy: - Adenocarcinoma, 10.5 cm - Margins negative for adenocarcinoma - Three of fifteen lymph nodes positive for metastatic adenocarcinoma (3/15) - Appendix with no histologic abnormality Reviewed and Electronically Signed by: Roderick Valentine MD 07/11/24 1019 Labs on day of discharge: Labs from last 24 hours 07/11/24 07/11/24 06:26 06:26 WBC 12.7 H RBC 3.50 L Hgb 8.0 L Hct 26.5 L MCV 75.7 L MCH 22.9 L MCHC 30.2 L RDW 17.2 H Plt Count 480 H MPV 10.2 Sodium 136 L Potassium 3.9 Chloride 106 Carbon Dioxide 28 Anion Gap 2 L BUN 7 Creatinine 0.70 Estim Creat Clear Calc 40 Estimated GFR > 60 Glucose 85 Calcium 8.6 Magnesium 2.2 2.2 Dischar
[2024-07-11 14:00] VITALS: BP 111/60; PULSE 62; RESP 20; TEMP 36.6; O2SAT 100
== END 2024-07-11 17:00 | disposition home or self-care (01) | DRG 330 ==
LOC: ANH3MEDSUR 13:06
PROVIDERS: Admitting Provider Surgery; PCP Family Medicine Adolescent Medicine; Visit Provider Surgery
PROC: 0DTF4ZZ Resection of Right Large Intestine, Percutaneous Endoscopic Approach (ICD-10-PCS; principal; 2024-07-09 09:30)
DX: C18.0 Malignant neoplasm of cecum (principal); E87.1 Hypo-osmolality and hyponatremia; D50.0 Iron deficiency anemia secondary to blood loss (chronic); R91.8 Other nonspecific abnormal finding of lung field; M85.80 Other specified disorders of bone density and structure, unspecified site; E87.6 Hypokalemia
CPT/HCPCS: 36415; 80048; 83735; 85027; 88309; A9270; J0690; J1100; J1171; J1650; J1836; J1885; J2003; J2405; J2704; J3010; J7030; J7120

== ENCOUNTER 2024-07-17 16:42 | Outpatient (CLI) | payer MEDICARE, SELFPAY ==
[2024-07-17 17:28] LABS: Basophils Absolute Auto 0.2 K/mm3 (0.0-0.1); Basophils Percent Auto 1.7 % (0.2-1.2); Eosinophils Absolute Auto 0.3 K/mm3 (0-0.3); Eosinophils Percent Auto 2.2 % (0-4.4); Hematocrit 27.8 % (37.0-47.0); Hemoglobin 8.7 g/dL (12.0-15.0); Immature Granulocyte Absolute 0.06 K/mm3 (0.00-0.031); Immature Granulocyte Percent A 0.5 % (0-0.5); Lymphocytes Absolute Auto 2.78 K/mm3 (0.9-3.2); Mean Corpuscular HGB Conc 31.3 g/dl (32-36); Mean Corpuscular Hemoglobin 23.6 pg (26-34); Mean Corpuscular Volume 75.3 fl (80-100); Monocytes Absolute Auto 0.9 K/mm3 (0.1-0.6); Neutrophils Absolute Auto 7.4 K/mm3 (1.3-6.7); Neutrophils Percent Auto 63.6 % (45.5-73.1); Platelet Count Result 574 k/mm3 (150-375); Red Blood Count 3.69 M/mm3 (4.2-5.4); Red Cell Distribution Width 17.3 % (11.5-14.5); White Blood Count 11.6 K/mm3 (4.5-10.0)
[2024-07-17 17:41] LABS: Alanine Aminotransferase 68 U/L (6-35); Albumin Level 4.2 g/dL (3.5-5.1); Alkaline Phosphatase 78 U/L (38-126); Anion Gap 7 mmol/L (4-12); Aspartate Amino Transferase 50 U/L (14-36); Bilirubin,Total 0.2 mg/dL (0.2-1.3); Blood Urea Nitrogen 25 mg/dL (7-17); Calcium 9.5 mg/dL (8.4-10.2); Carbon Dioxide 29 mmol/L (22-30); Chloride 101 mmol/L (98-107); Estimated Glomerular Filt Rate > 60; Glucose 89 mg/dL (65-110); Potassium 4.3 mmol/L (3.4-5.0); Sodium 137 mmol/L (137-145)
[2024-07-17 17:54] LABS: Iron 18 ug/dL (37-170)
[2024-07-17 18:03] LABS: Percent Iron Saturation 4 % (20-50)
[2024-07-17 18:11] LABS: Carcinoembryonic Antigen 24.3 ng/mL (0.0-3.0)
== END 2024-07-17 16:43 | disposition home or self-care (01) ==
LOC: ANHLAB 16:44
PROVIDERS: PCP Family Medicine Adolescent Medicine; Visit Provider Internal Medicine Hematology & Oncology
DX: C18.9 Malignant neoplasm of colon, unspecified (principal); D64.9 Anemia, unspecified
CPT/HCPCS: 36415; 80053; 82378; 82728; 83540; 83550; 85025

== ENCOUNTER 2024-07-30 09:18 | Outpatient (CLI) | payer MEDICARE, SELFPAY ==
--- NOTE | ~2024-07-30 | PE_ITS ---
EXAMINATION: PET skull to mid thigh DATE: 07/30/2024 12:42 INDICATION: Malignant neoplasm of colon. TECHNIQUE: Blood glucose level was 93 mg/dL. 10.115 mCi of 18-fluorodeoxyglucose (18-FDG) was adminis tered i.v. Low dose computed tomography (CT) images were acquired from the base of the brain to the p roximal thighs for attenuation correction and anatomic localization. Automated exposure control was e mployed. Dose-length product (DLP) was 418 mGy-cm. Positron emission tomography (PET) images were acq uired in the same distribution. COMPARISON: CT chest, abdomen, and pelvis 06/28/2024 FINDINGS: Head/neck: There are no pathologically enlarged lymph nodes. Chest: There is mild scarring at the lung apices. There is mild atelectasis in the lungs. There are t race pleural effusions. The heart size is normal. There is a stable small pericardial effusion. Abdomen/pelvis/proximal thighs: There is a 1.7 cm mass in segment VIII of the liver with maximum SUV of 5.8. The gallbladder is absent. The spleen, pancreas, adrenal glands, and kidneys are normal. Ther e are changes of right hemicolectomy. Nodes. There are no pathologically enlarged lymph nodes. There is no ascites. There is no osseous mal ignancy. IMPRESSION: 1. 1.7 cm liver mass with increased activity, consistent with metastatic disease. Reviewed, dictated and finalized at location A. PHONER IMPRESSION: 1. 1.7 cm liver mass with increased activity, consistent with metastatic diseas e.
[2024-07-30 09:47] LABS: Glucose Point of Care 93 mg/dl (65-105)
== END 2024-07-30 09:19 | disposition home or self-care (01) ==
PROVIDERS: PCP Family Medicine Adolescent Medicine; Visit Provider Internal Medicine Hematology & Oncology
DX: C18.0 Malignant neoplasm of cecum (principal)
CPT/HCPCS: 78815; A9552

== ENCOUNTER 2024-08-01 09:16 | Outpatient (CLI) | payer MEDICARE, SELFPAY ==
[2024-08-01 10:10] LABS: Basophils Absolute Auto 0.1 K/mm3 (0.0-0.1); Basophils Percent Auto 1.9 % (0.2-1.2); Eosinophils Absolute Auto 0.2 K/mm3 (0-0.3); Eosinophils Percent Auto 3.1 % (0-4.4); Hematocrit 31.5 % (37.0-47.0); Hemoglobin 9.6 g/dL (12.0-15.0); Immature Granulocyte Absolute 0.04 K/mm3 (0.00-0.031); Immature Granulocyte Percent A 0.5 % (0-0.5); Lymphocytes Absolute Auto 2.03 K/mm3 (0.9-3.2); Lymphocytes Percent Auto 27.6 % (18.3-44.2); Mean Corpuscular HGB Conc 30.5 g/dl (32-36); Mean Corpuscular Hemoglobin 24.7 pg (26-34); Mean Platelet Volume 9.9 fl (7.4-10.4); Monocytes Absolute Auto 0.7 K/mm3 (0.1-0.6); Monocytes Percent Auto 9.3 % (2.6-8.5); Neutrophils Absolute Auto 4.2 K/mm3 (1.3-6.7); Neutrophils Percent Auto 57.6 % (45.5-73.1); Platelet Count Result 417 k/mm3 (150-375); Red Blood Count 3.89 M/mm3 (4.2-5.4); Red Cell Distribution Width 23.1 % (11.5-14.5); White Blood Count 7.4 K/mm3 (4.5-10.0)
[2024-08-01 10:21] LABS: Prothrombin Time 13.2 Seconds (11.1-14.7)
[2024-08-01 10:23] LABS: Partial Thromboplastin Time 27.6 Seconds (22.3-36.8)
[2024-08-01 10:43] LABS: Ovalocytes 1+; Schistocytes 1+
[2024-08-01 10:44] LABS: Platelet Estimate Slightly Increased (Adequate)
[2024-08-01 10:45] LABS: Anisocytosis 2+; Hypochromasia 1+
== END 2024-08-01 09:17 | disposition home or self-care (01) ==
LOC: ANHSURGERY 09:26
PROVIDERS: PCP Family Medicine Adolescent Medicine; Visit Provider Surgery
DX: Z01.818 Encounter for other preprocedural examination (principal); C18.0 Malignant neoplasm of cecum
CPT/HCPCS: 36415; 85025; 85610; 85730

== ENCOUNTER 2024-08-05 00:17 | Day surgery (SDC) | payer MEDICARE, SELFPAY ==
--- NOTE | 2024-07-31 08:40 | PC.NURSE ---
Report to the Outpatient Waiting Room, entrance under the green pavilion located off [facility], at time 1200 NOON on date __08/05/24 . Planned Procedure Time: _2:00 PM .? Time changes happen often and if your time is changed the preop area will call you the afternoon before. - You and your visitor will be asked to self-screen and do not enter if you have any COVID symptoms. Please call surgeon if you need to reschedule. - A mask is optional within the hospital at this time. Patients may have clear liquids (water, carbonated beverages, clear teas, apple juice) until 3 hours prior to surgery( 11AM) with a maximum of 20 ounces. - No food from midnight until time of surgery and no smoking - Infants may have breast milk until 4 hours before surgery, formula 6 hours prior to surgery. - Children will be allowed to drink immediately following surgery.? If applicable, please bring a bottle or sippy cup to assist with drinking. Juice, water, soda, and popsicles are readily available.? For infants on formula, please bring formula the day of surgery.? Pacifiers are allowed. Take only the following medications with a SIP of water on the morning of surgery: _NONE DO NOT STOP ANY OF YOUR OTHER PRESCRIPTION MEDICATIONS PRIOR TO SURGERY EXCEPT THE FOLLOWING Medications to discontinue per physician ___HOLD ALL VITAMINS AND SUPPLEMENTS 3 DAYS PRE OP .LAST DOSE08/01/24 Please no make-up, nail yoruba, hairspray, perfume, deodorant, or body powder the day of surgery.? No jewelry (including any body piercings) or valuables the day of surgery, leave them at home.? Please take a shower or bath the night before, or the morning of, surgery with an antibacterial soap.? Wear comfortable, loose fitting clothing.? Children are encouraged to wear pajamas. - Jewelry must be removed prior to entering the operating room.? Rings and piercings that are not removed may be cut off. - The hospital will not accept responsibility for valuables.? - Please leave all valuables, including medications, at home the day of surgery. If you are going home after surgery, a licensed auto haulaway driver must drive you home.? - NO public transportation without another adult if you receive anesthesia. - We recommend that an adult stay with you for 24 hours following discharge. - We also recommend that you do not drive, make important decision, drink alcoholic beverages, or take any drugs that were not prescribed by your health care provider for at least 24 hours after your discharge time. Follow any additional instructions given to you from your surgeon. Telephone instructions given to ___PATIENT and asked if any additional questions and then verbalized understanding. Patient advised to call surgeon office or pre surgery nurse liaison [phone] if any additional questions.
[2024-07-31 08:47] VITALS: BMI 19.5
--- NOTE | ~2024-08-05 | XR_ITS ---
EXAMINATION: XR chest port-a-cath/central DATE: 08/05/2024 15:55 INDICATION: Port placement. TECHNIQUE: A single frontal view of the chest was obtained. COMPARISON: PET/CT 07/30/2024 FINDINGS: There is mild atelectasis at left lung base. No pleural effusion or pneumothorax. The heart size is normal. There is a right internal jugular port with tip in superior vena cava. IMPRESSION: 1. Port tip in superior vena cava. 2. Mild atelectasis at left lung base. Reviewed, dictated and finalized at location A. KITTER
--- NOTE | ~2024-08-05 | XR_ITS ---
EXAMINATION: XR fl guide central line place DATE: 08/05/2024 15:41 INDICATION: Port catheter insertion TECHNIQUE: 4 fluoroscopic images of the central chest were obtained during procedure performed by Dr. Acevedo. Radiologist was not present for the imaging or procedure. The amount of fluoroscopy time us ed during this procedure was 2.3 minutes. COMPARISON: None. FINDINGS: Images demonstrate a wire advanced through the sheath into the superior vena cava. Subsequent images demonstrate placement of the intravenous catheter with hemostat clamped at the proximal tip. Final im age demonstrates the catheter cut to appropriate length with placement of the port with the distal ti p remaining at the caudal superior vena cava. Visualized portions of the central lungs are clear. Hea rt size is normal. IMPRESSION: 1. Fluoroscopy utilized during right internal jugular central venous port catheter placement with dis anton tip near the caudal superior vena cava. Reviewed, dictated and finalized at location B. Y MAKER HELPER IMPRESSION: 1. Fluoroscopy utilized during right internal jugular central venous port adina ter placement with distal tip near the caudal superior vena cava.
[2024-08-05] MEDS: LIDO 1%/EPINEPHRINE 1:100,000 20 ML VIAL 50 ML INFILTRATE (10:24)
[2024-08-05] MEDS: LACTATED RINGERS 1,000 ML 30 ML IV CONT (12:00)
[2024-08-05 12:20] VITALS: BP 112/63; PULSE 62; RESP 18; TEMP 37.3; O2SAT 100; BMI 19.3
[2024-08-05] MEDS: KETOROLAC 15 MG/ML VIAL (*BKC) IV PUSH (12:48)
--- NOTE | 2024-08-05 14:37 | P.PNAN_ITS ---
Anes - Initial Pre Proc Eval Procedure: Operation Date: 08/05/24 14:00 Proposed Procedures p Insertion Ct Cath - Robbi Acevedo DO Date/Time: 08/05/24 14:37 Surgeon: Robbi Acevedo DO Pre Op Diagnosis: malignant neoplasm of colon Patient Data Age: 79 Gender: F Height: 1.52 m Weight: 45 kg Last Vital Signs Temp 37.3 C 08/05/24 12:20 Pulse 62 08/05/24 12:20 Resp 18 08/05/24 12:20 BP 112/63 08/05/24 12:20 Pulse Ox 100 08/05/24 12:20 O2 Del Method Room Air 08/05/24 12:20 Allergies Allergy/AdvReac Type Severity Reaction Status Date / Time No Known Allergies Allergy Verified 08/05/24 13:31 Home Medications Medication Instructions Recorded Confirmed Type calcium 315 mg (as 2 tablet PO BID 01/21/22 07/31/24 History citrate)-vitamin D3 6.25 mcg (250 unit) tablet (Citracal + Vitamin D Maximum) flaxseed oil 1,000 mg capsule 1,000 mg PO DAILY 01/21/22 08/05/24 History ([place]-3 Flaxseed Oil) alendronate 70 mg tablet See Rx Instructions .Route 03/04/24 08/05/24 Rx .COMPLEX #12 tabs multivitamin 1 tablet PO DAILY 06/27/24 07/31/24 History ferrous sulfate 324 mg (65 mg 324 mg PO DAILY 07/31/24 07/31/24 History iron) tablet,delayed release Patient hx anesthesia problems: none Family hx anesthesia problems: none Results Review: All pre-operative results and documents have been reviewed as part of the pre- operative evaluation. [facility] Past Medical History Medical History Cecal cancer Osteopenia Surgical History Surgical History History of colonoscopy 05/22/24 Dr. Torres History of right hemicolectomy (06/2024) For cecal cancer Family History Family History Father Dementia Mother Breast cancer Carcinoma of colon Social History Social History Smoking status: Never smoker Second hand tobacco smoke exposure: No Alcohol intake: current Drinks per week: 1 Substance use: never Substance use type: does not use Current Housing: Decline to Answer Concerned About Future Housing: Decline to Answer Difficulty Paying Gas/Electric Bills: Decline to Answer Difficulty Paying for Meds: Decline to Answer Currently Unemployed: Decline to Answer Education: Decline to Answer Difficulty w/ Childcare or Family Care: Decline to Answer Living arrangements: alone Occupation/Education: retired Gender identity (if verbalized by the patient): Female Sexual Orientation (if Verbalized by the Patient): Straight or Heterosexual Spiritual care concerns: No Agree to blood products: Yes Anes - Eval Final PreProcedure Day of Procedure 08/05/24 14:37 Patient weight: thin Heart: regular rate and rhythm Lungs: clear to auscultation Airway: Mallampati scale class 1 Neurological: alert and oriented Last oral intake: >/= 8 hours ASA classification: III Emergent: no Anesthetic plan: proceed Anesthesia type and monitoring: general GIVS and standard monitoring Results Review: All pre-operative results and documents have been reviewed as part of the pre- operative evaluation. Informed Consent: The patient's anesthetic plan and its attendant risks and benefits were discussed with the patient/family/POA. Questions were solicited and answers provided to the satisfaction of the patient/family/POA.
--- NOTE | 2024-08-05 14:37 | WPDHPUPDATE1 ---
History and Physical Update Update Date/Time: 08/05/24 14:37 History and Physical has been reviewed, including an updated exam of the patient. There are NO changes in the patient's condition. Risks, benefits, and alternatives have been discussed and questions answered. Patient agrees to proceed with procedure.
[2024-08-05] MEDS: ceFAZolin 2 GM/D5W 50 ML 2 GM/50 ML BAG IVPB (15:05)
[2024-08-05] MEDS: LIDO 1%/EPINEPHRINE 1:100,000 50 ML VIAL INFILTRATE (15:16)
[2024-08-05] MEDS: HEPARIN SODIUM, PORCINE 10,000 UNITS/10 ML VIAL 10000 UNITS IV PUSH (15:17)
[2024-08-05] MEDS: HEPARIN SODIUM 5,000 UNITS/ML VIAL 5000 UNITS IRRIGATION (15:18)
--- NOTE | 2024-08-05 15:41 | W.PM.PROC2 ---
Procedure Note - Detailed Date of Procedure 08/05/24 Pre-op Diagnosis malignant neoplasm of colon Post-op Diagnosis Same Procedure Performed Right Internal Jugular tunneled Port-a-Cath placement using ultrasound and fluoroscopic guidance Surgeon Robbi Acevedo, DO Anesthesia MAC and Local (0.5% bupivicaine with epinephrine) Indications This is a 79-year-old woman who presented with a recent finding of ascending colon cancer. She has undergone right hemicolectomy and now is in need of port placement to begin chemotherapy. Findings Right internal jugular Port-A-Cath placement was placed under ultrasound and fluoroscopic guidance. SonoSite ultrasound was used to identify the right internal jugular vein. This was visualized as a compressible vessel just lateral to the pulsatile carotid artery. The 18 gauge introducer needle was advanced under ultrasound guidance. Fluoroscopy was then used to guide advancement of the guidewire followed by the dilator and sheath. The final fluoroscopic images demonstrated the catheter tip in the distal SVC and no kinks along its path. Description of Procedure Procedure as well as risks, benefits, and alternatives were discussed with patient. Written consent was obtained and placed in chart prior to procedure. Patient was brought back to surgical suite. Was placed supine on operating table. Time-out was done confirm patient procedure. IV sedation was then administered by the Anesthesia Department. The chest and neck area was prepped and draped in sterile fashion using chlorhexidine prep. Patient was placed in Trendelenburg position. SonoSite ultrasound was used to identify the right internal jugular vein. It was visualized as a compressible vessel just lateral to the carotid artery. 1% lidocaine with epinephrine was infiltrated directly over the vessel under ultrasound guidance. An 18 gauge introducer needle was then advanced under ultrasound guidance directly into the right internal jugular vein. Dark nonpulsatile blood was aspirated. A 0.035 in guidewire was then advanced through the needle under fluoroscopic guidance. The guidewire was visualized advancing all the way down into the superior vena cava. 1% lidocaine with epinephrine was then infiltrated on the right anterior chest and along the tract up to the guidewire insertion site. A 3 cm incision was made with a 15 blade scalpel, and electrocautery was then used for dissection down through the subcutaneous tissue to the pectoral fascia. A pocket was created just inferior to the incision using blunt dissection. A small mone incision was then also made at the insertion site at the neck. The tunneler was then advanced from the chest incision up to the neck incision and the catheter tubing was brought up through this tract. The dilator and sheath were then advanced over the guidewire under fluoroscopic visualization. The dilator and guidewire were then removed leaving the sheath in place. The catheter tubing was then advanced through the sheath under fluoroscopic guidance. The sheath was unsnapped and carefully peeled away. The catheter tubing was released underneath the neck incision. Fluoroscopy was used to confirm proper placement of the catheter tubing and no kinks along its path. The catheter was then cut to proper length and secured to the port. The port was then accessed with a River needle and aspirated and flushed with heparinized saline. The port function with ease. The port was then hep-locked with Hep-Lock solution. The port was then placed within the pocket that was created, and was secured to the fascia using 3 0 Prolene simple interrupted sutures. The patient was flattened out in bed. Dalila's fascia was reapproximated using 3 0 Vicryl simple interrupted sutures. The skin of the incisions was then approximated using 4-0 Monocryl subcuticular suture. Exofin glue was then applied on top. The patient was then awakened from anesthesia and transferred to recovery. Implants Bard clear view Power Port Estimated Blood Loss 5 Complications No immediate complications Condition Stable Disposition Same day [facility] Billing Surgery - Charge Forward: Surgery Billing
[2024-08-05 15:42] VITALS: BP 119/63; PULSE 87; RESP 16; O2SAT 100
[2024-08-05 16:00] VITALS: BP 123/54; PULSE 87; RESP 16; O2SAT 99
[2024-08-05 16:20] VITALS: BP 121/63; PULSE 75; RESP 16; O2SAT 99
[2024-08-05 16:36] VITALS: BP 119/63; PULSE 78; RESP 16; O2SAT 97
== END 2024-08-05 16:49 | disposition home or self-care (01) ==
PROVIDERS: PCP Family Medicine Adolescent Medicine; Visit Provider Surgery
PROC: (CPT 36561; principal; 2024-08-05 14:00)
DX: Z48.815 Encounter for surgical aftercare following surgery on the digestive system (principal); M85.88 Other specified disorders of bone density and structure, other site; Z79.83 Long term (current) use of bisphosphonates; Z98.890 Other specified postprocedural states; Z98.0 Intestinal bypass and anastomosis status; Z90.49 Acquired absence of other specified parts of digestive tract; Z85.038 Personal history of other malignant neoplasm of large intestine; Z80.3 Family history of malignant neoplasm of breast; Z80.0 Family history of malignant neoplasm of digestive organs
CPT/HCPCS: 36561; 77001; C1788; J0690; J1644; J1885; J2004; J2405; J2704; J3010; J7030; J7120

== ENCOUNTER 2024-10-26 10:21 | Emergency (ER) | payer MEDICARE, SELFPAY ==
[2024-10-26] VITALS (18 sets, daily range): BP systolic 118–155; BP diastolic 60–71; PULSE 65–96; RESP 12–20; TEMP 36.5–36.6; O2SAT 96–100
--- NOTE | ~2024-10-26 | CT_ITS ---
EXAMINATION: CTA brain carotid DATE: 10/26/2024 13:37 INDICATION: Transient ischemic attack. Vision change. TECHNIQUE: Computed tomographic angiography (CTA) of the head was performed without and with 100 mL O mnipaque-350 intravenous contrast. CTA of the neck was performed with intravenous contrast. Automated exposure control and iterative reconstruction technique were employed. The dose-length product was 1 542.52 mGy-cm. Maximum intensity projection and volume rendered 3D-reconstructions were created by ezio velasquez technologist on a separate workstation. COMPARISON: None. FINDINGS: HEAD CTA: There are scattered areas of low attenuation in the cerebral white matter, which is within normal limits for the patient's age. There is no intracranial hemorrhage, acute infarction, or abnorm al intracranial mass lesion. The ventricles are normal in size. The paranasal sinuses are clear. The orbits are normal. The mastoid air cells are normal. The vertebral arteries are codominant. There is no significant stenosis of basilar artery or the posterior cerebral arteries. There is no significant stenosis of the intracranial internal carotid arteries or anterior or middle cerebral arteries. Ante rior communicating artery is normal. The posterior communicating arteries are normal. There is no ane urysm. NECK CTA: There is mild scarring at the lung apices. There are no pathologically enlarged lymph nodes . There is a right internal jugular port with tip at superior cavoatrial junction. There is no signif icant stenosis of the vertebral arteries. There is minimal plaque in the proximal internal carotid ar teries. There is 0% stenosis of the proximal right internal carotid artery relative to normal distal artery lumen diameter (NASCET criteria). There is 0% stenosis of the proximal left internal carotid a rtery relative to normal distal artery lumen diameter. There is severe cervical spondylosis. IMPRESSION: 1. Normal aging brain. 2. No aneurysm or significant intracranial arterial stenosis. 3. 0% stenosis of the proximal internal carotid arteries relative to normal distal artery lumen diame ters (NASCET criteria). Reviewed, dictated and finalized at location A. GRATION LAWYER IMPRESSION: 1. Normal aging brain. 2. No aneurysm or significant intracranial arterial stenosis. 3. 0% stenosis of the proximal internal carotid arteries relative to normal dis anton artery lumen diameters (NASCET criteria).
--- NOTE | ~2024-10-26 | XR_ITS ---
EXAMINATION: XR chest 1V portable DATE: 10/26/2024 10:47 INDICATION: Cerebrovascular accident. TECHNIQUE: A single frontal view of the chest was obtained. COMPARISON: Chest single view 08/05/2024, chest CT 06/28/2024 FINDINGS: There is mild scarring at the lung apices. No pleural effusion or pneumothorax. The heart s ize is normal. There is a right internal jugular port with tip in superior vena cava. IMPRESSION: 1. Stable mild scarring at the lung apices. Reviewed, dictated and finalized at location A. PATTERN MARKER
--- OUTSIDE RECORDS SUMMARY | 2024-10-26 10:23 | XMS_ITS | Encounter Summary ---
Author Organization [facility] ([facility] [place] Address [address] [place] [address] Care Team Providers Care Pediatric Geneticist Name Role Phone Ty Reynolds MD Primary Care Provider [phone]- [phone] Encounter Details Date Type Department Care Team (Late Contact Info) Description 10/25/2024 Orders Only [facility] Oncology and Hematology - [address] [place] [address] Mir Andrade MD [address] [place] [address] [address] [place] [phone] Social History Tobacco Use Types Packs/Day Years Used Date Smoking Tobacco: Never Smokeless Tobacco: Never Alcohol Use Standard Drinks/Week Comments Yes 0 (1 standard drink = 0.6 oz pur e alcohol) Occasional Comments Unknown Sex and Gender Information Value Date Recorded Sex Assigned at Not on file Legal Sex Female 10:54 AM CDT Gender Identity Not on file Sexual Orientation Not on file documented as of this encounter Plan of Treatment Upcoming Encounters Date Type Department Care Team (Late Contact Info) Description 10/28/2024 Orders Only [facility] Oncology and Hematology - [place] [address] [place] [address] Mir Andrade MD [address] [place] [address] [place] [address] [place] [phone] Malignant neoplasm of colon, unspecified part of colon (CMS/HCC) 11/04/2024 8:45 AM COSMETICS MACHINE OPERATOR Office Visit [facility] Oncology and Hematology [facility] [address] [place] [address] Mir Andrade MD [address] [facility] [address] [place] [address] documented as of this encounter Visit Diagnoses Not on filedocumented in this encounter Care Teams Pediatric Geneticist Relationship Specialty Start Date End Date Ty Reynolds MD [address] [facility] [address] [place] [phone] PCP - General Family Practice 08/13/24 documented as of this encounter
--- OUTSIDE RECORDS SUMMARY | 2024-10-26 10:23 | XMS_ITS | Clinical Summary ---
Author Organization [facility] Milagro weldon [place] Address [address] [place] [address] Care Team Providers Care Pole Cutter Name Role Phone Ty Reynolds MD Primary Care Provider [phone]- [phone] Medications calcium citrate-vitamin d3 (CITRACAL D MAX) 315 mg-6.25 mcg (250 unit) Tablet Take 1 Tablet by mouth 2 times daily. Active multivitamin (DAILY-DAVID) tablet Take 1 Tablet by mouth daily. Active alendronate (FOSAMAX) 10 mg tablet Take 10 mg by mouth daily. empty stomach beofore other meds,with full glass of water, stay upright 30 min Active lidocaine-priloc love (EMLA) 2.5-2.5 % CreamIndications :Malignant neoplasm of colon, unspecified part of colon (CMS/HCC) Apply a quarter size amount to port site 30 minutes prior to access. 30 Gram 1 4 Active ondansetron (ZOFRAN ODT) 8 mg Tablet, Rapid DissolveIndicati ons:Malignant neoplasm of colon, unspecified part of colon (CMS/HCC) Dissolve 1 tablet on top of tongue then swallow with saliva every 8 hours as needed for nausea or vomiting 30 Tablet 1 4 Active Active Problems No known active problems Encounters Date Type Department Care Team Description 10/25/2024 Orders Only [facility] Oncology and Hematology - [address] [place] [address] Mir Andrade MD 10/21/2024 Orders Only [facility] Oncology and Hematology - [address] [place] [address] Mir Andrade MD 10/15/2024 External Device Data STL ABSTRACTION Provider, Abstract 10/14/2024 Orders Only [facility] Oncology and Hematology - [address] [place] [address] Mir Andrade MD Malignant neoplasm of colon, unspecified part of colon (CMS/HCC) 10/09/2024 External Device Data STL ABSTRACTION Provider, Abstract 10/09/2024 External Device Data STL ABSTRACTION Provider, Abstract 10/08/2024 Orders Only [facility] Oncology and Hematology - [address] [place] [address] Mir Andrade MD 10/07/2024 8:45 AM TRACTOR DRIVER Office Visit [facility] Oncology and Hematology - [address] [place] [address] Mir Andrdae MD Malignant neoplasm of colon, unspecified part of colon (CMS/HCC) (Primary Dx) 10/02/2024 External Device Data STL ABSTRACTION Provider, Abstract 09/30/2024 Orders Only [facility] Oncology and Hematology - [address] [place] [address] Mir Andrade MD Malignant neoplasm of colon, unspecified part of colon (CMS/HCC) 09/27/2024 Orders Only [facility] Oncology and Hematology - [place] [place] [phone] Mir Andrade MD 09/16/2024 Orders Only [facility] Oncology and Hematology - [address] [place] [address] Mir Andrade MD Malignant neoplasm of colon, unspecified part of colon (CMS/HCC) 09/13/2024 Orders Only [facility] Oncology and Hematology - [address] [place] [address] Mir Andrade MD 09/02/2024 Orders Only [facility] Oncology and Hematology - [address] [place] [phone] Mir Andrade MD Malignant neoplasm of colon, unspecified part of colon (CMS/HCC) 08/21/2024 Abstract [facility] Oncology and Hematology - [address] [place] [phone] Tung Sepulveda, [facility] 08/21/2024 Orders Only [facility] Oncology and Hematology - [address] [place] [phone] Mir Andrade MD 08/20/2024 Orders Only [facility] Oncology and Hematology - [address] [place] [phone] Mir Andrade MD Malignant neoplasm of colon, unspecified part of colon (CMS/HCC) (Primary Dx) 08/13/2024 Refill [facility] Oncology and Hematology - [place] [address] [place] [phone] Mir Andrade MD Malignant neoplasm of colon, unspecified part of colon (CMS/HCC) (Primary Dx) 08/12/2024 Telephone [facility] Oncology and Hematology [facility] [address] [place] [phone] Mir Andrade MD [facility] 08/02/2024 3:30 PM TRACTOR DRIVER Telephone Check Up [facility] Oncology and Hematology - [place] [address] [place] [address] Mir Andrade MD 08/01/2024 Telephone [facility] Oncology and Hematology - [place] [address] [place] [address] Mir Andrade MD Chemotherapy 07/31/2024 Orders Only [facility] Oncology and Hematology - [address] [place] [phone] Mir Andrade MD from Last 3 Months Family History Medical History Relation Name Comments No Known Problems Brother 1 Atrial fibrillation Brother 2 No Known Problems Child No Known Problems Father Colon Cancer Mother Relation Name Status Comments Brother 1 Brother 2 Alive Child Alive Father Mother Social History Tobacco Use Types Packs/Day Years Used Date Smoking Tobacco: Never Smokeless Tobacco: Never Tobacco Cessation:Counseling Given: Not Answered Alcohol Use Standard Drinks/Week Comments Yes 0 (1 standard drink = 0.6 oz pur e alcohol) Occasional Comments Unknown Sex and Gender Information Value Date Recorded Sex Assigned at Not on file Legal Sex Female 10:54 AM CDT Gender Identity Not on file Sexual Orientation Not on file Last Filed Vital Signs Vital Sign Reading Time Taken Comments Blood Pressure 130/77 10/07/2024 8:37 AM TRACTOR DRIVER Pulse 71 10/07/2024 8:37 AM TRACTOR DRIVER Temperature 36.4 C (97.6 F) 10/07/2024 8:37 AM TRACTOR DRIVER Respiratory Rate 15 10/07/2024 8:37 AM TRACTOR DRIVER Oxygen Saturation 97% 10/07/2024 8:37 AM TRACTOR DRIVER Inhaled Oxygen Concentration - - Weight 47.5 kg (104 lb 12.8 oz) 10/07/2024 8:37 AM TRACTOR DRIVER Height 152.4 cm (5') 07/17/2024 3:10 PM CDT Body Mass Index 20.47 07/17/2024 3:10 PM CDT Plan of Treatment Upcoming Encounters Date Type Department Care Team (Late st Contact Info) Description 10/28/2024 Orders Only [facility] Oncology and Hematology [facility] [address] [place] [address] Mir Andrade MD [address] [employer] [address] [place] [phone] Malignant neoplasm of colon, unspecified part of colon (CMS/HCC) 11/04/2024 8:45 AM TRACTOR DRIVER Office Visit [facility] Oncology and Hematology [facility] [address] [place] [address] Mir Andrade MD [address] [address] [place] [phone] Health Maintenance Due Date Last Done Comments DTAP/TDAP/TD VACCINES (1 - Tdap) 1964 PNEUMOCOCCAL VACCINE 65+ YEARS (1 of 1 - PCV) 04/01/19 95 ZOSTER VACCINE (1 of 2) 1995 OSTEOPOROSIS SCREENING 2010 RSV VACCINE (60+ or ) (1 - 1-dose 75+ series) 2020 INFLUENZA VACCINE (#1) 2024 [place] Prev entative Visit/Annual Wellness Visit 09/18/2024 Procedures Procedure Name Priority Date/Time Associated Diagnosis Comments BASIC METABOLIC PANEL Routine 10/21/2024 3:07 PM TRACTOR DRIVER CBC WITH DIFFERENTIAL Routine 10/21/2024 3:00 PM TRACTOR DRIVER BASIC METABOLIC PANEL Routine 10/07/2024 11:16 AM TRACTOR DRIVER COMPREHENSIVE METABOLIC PANEL Routine 09/23/2024 12:34 PM TRACTOR DRIVER BASIC METABOLIC PANEL Routine 09/23/2024 12:33 PM TRACTOR DRIVER COMPREHENSIVE METABOLIC PANEL Routine 09/10/2024 12:39 PM TRACTOR DRIVER BASIC METABOLIC PANEL Routine 09/10/2024 12:11 PM TRACTOR DRIVER CBC WITH DIFFERENTIAL Routine 09/10/2024 12:07 PM TRACTOR DRIVER COMPREHENSIVE METABOLIC PANEL Routine 08/20/2024 12:59 PM TRACTOR DRIVER CBC WITH DIFFERENTIAL Routine 08/20/2024 10:55 AM TRACTOR DRIVER GLUCOSE LEVEL Routine 07/30/2024 11:55 AM TRACTOR DRIVER PET BONE IMG W CT SKL BSE MID THG Routine 07/30/2024 8:04 AM TRACTOR DRIVER from Last 3 Months Results * BASIC METABOLIC PANEL (10/21/2024 3:07 PM TRACTOR DRIVER) Only the most recent of4 resultswithin the time period is included. Blood us Mir Andrade MD CHEMISTRY ORDERABLES Final Resu lt * CBC WITH DIFFERENTIAL (10/21/2024 3:00 PM TRACTOR DRIVER) Only the most recent of3 resultswithin the time period is included. Blood us Mir Andrade MD HEMATOLOGY ORDERABLES Final Res ult * COMPREHENSIVE METABOLIC PANEL (09/23/2024 12:34 PM TRACTOR DRIVER) Only the most recent of3 resultswithin the time period is included. Blood Mir Andrade MD CHEMISTRY ORDERABLES Final Resu lt * GLUCOSE LEVEL (07/30/2024 11:55 AM TRACTOR DRIVER) Blood Mir Andrade MD CHEMISTRY ORDERABLES Final Resu lt * PET BONE IMG W CT SKB MDTH (07/30/2024 8:04 AM TRACTOR DRIVER) Anatomical Region Laterality Modality Other iMr Andrade MD PE ORDERABLES Final Result from Last 3 Months Insurance [employer] PPO [facility] Care Teams Pole Cutter Relationship Specialty Start Date End Date Ty Reynolds MD [address] [address] PCP - General Family Practice 08/13/24
--- OUTSIDE RECORDS SUMMARY | 2024-10-26 10:23 | XMS_ITS | Encounter Summary ---
Author Organization [facility] [place] Address [address] [place] [address] Care Team Providers Care Manager Trade Name Role Phone Ty Reynolds MD Primary Care Provider +1- [phone] Encounter Details Date Type Department Care Team (Late Contact Info) Description 10/21/2024 Orders Only [facility] Oncology and Hematology - [address] [place] [address] Mir Andrade MD [address] [place] [address] [place] [address] [place] [phone] Social History Tobacco Use Types Packs/Day [...] (Late Contact Info) Description 10/28/2024 Orders Only [facility] Oncology and Hematology - [place] [address] [place] [address] Mir Andrade MD [address] [place] [address] [place] [address] [place] [phone] Malignant neoplasm of colon, unspecified part of colon (CMS/HCC) 11/04/2024 8:45 AM CURRICULUM CONSULTANT Office Visit [facility] Oncology and Hematology [facility] [address] [place] [address] Mir Andrade MD [address] [facility] [address] [place] [address] documented as of this encounter Procedures Procedure Name Priority Date/Time Associated Diagnosis Comments BASIC METABOLIC PANEL Routine 10/21/2024 3:07 PM CURRICULUM CONSULTANT CBC WITH DIFFERENTIAL Routine 10/21/2024 3:00 PM CURRICULUM CONSULTANT documented in this encounter Results * BASIC METABOLIC PANEL (10/21/2024 3:07 PM CURRICULUM CONSULTANT) Blood us Mir Andrade MD CHEMISTRY ORDERABLES Final Resu lt * CBC WITH DIFFERENTIAL (10/21/2024 3:00 PM CURRICULUM CONSULTANT) Blood us Mir Andrade MD HEMATOLOGY ORDERABLES Final Res ult documented in this encounter Visit Diagnoses Not on filedocumented in this encounter Care Teams Manager Trade Relationship Specialty Start Date End Date Ty Reynolds MD [address] [place] [address] [address] [place] [address] PCP - General Family Practice 08/13/24 documented as of this encounter
--- OUTSIDE RECORDS SUMMARY | 2024-10-26 10:23 | XMS_ITS | Continuity of Care Document ---
Author Organization [facility] [place] Address [address] [place] [address] Phone Care Team Providers Care Equine Internship Name Role Phone Ramires OD, Emeka Unavailable Unavailable Procedures Procedure Date Eye Exam & Treatment Refraction Eye Exam & Treatment Refraction Eye Exam & Treatment Refraction Advance Directives Directive Yes / No Effective Date File Name No Information Encounters Encounter Description Practice Location Reason(s) For Visit Diagnoses Date Provider Providers Copied on Encounter [facility], [address] [place] [address] [address], [place], [place], [id number], tel:[phone] [facility] No Information Sep-3 0-201 0 Ramires OD Emeka. [address], [place], [place], [facility], . tel:[phone] [facility], [address] [place] [address] [address], [place], [place], [id number], tel:[phone] [facility] No Information Sep-0 3-200 9 Ramires OD Emeka. [address], [place], [place], [facility], . tel:[phone] [facility], [address] [place] [address] [address], [place], [place], [id number], tel:[phone] [facility] No Information January-2 2-200 8 Ramires OD Emeka. [address], [address], [place], [address], [place]. tel:[phone] Family History Family Member Type Diagnosis Age At Onset No Information Payers Payer name Insurance type Covered green party ID Authoriza tion(s) [place] [id number] Social History Type Description Quantity Date Captured [...]
--- OUTSIDE RECORDS SUMMARY | 2024-10-26 10:24 | XMS_ITS | Clinical Summary ---
Author Organization [place] [address] Address [address] [place] [address] Care Team Providers Care Strip Feeder Name Role Phone Ty Reynolds MD Primary Care Prov ider Social History Tobacco Use Types Packs/Day Years Used Date Smoking Tobacco: Never Assessed Personal Safety Answer Date Recorded Getting School Help Needed Not on file 11/12 Comments Unknown Sex and Gender Information Value Date Recorded Sex Assigned at Not on file Legal Sex Female 12:54 AM SLOT SERVICE SPECIALIST Gender Identity Not on file Sexual Orientation Not on file Plan of Treatment Health Maintenance Due Date Last Done Comments Depression Screening 1945 Fall Risk Assessment 1945 Hepatitis C Screening 1945 Osteoporosis Screening-Bone Density Scan 1945 Hepatitis B Screening 1963 Zoster Vaccine (1 of 2) 1995 DTaP/Tdap/Td Vaccine (1 - Tdap) 10/04/2006 7 Pneumococcal vaccine 65+ (1 of 1 - PCV) 2010 Well Visit 65+ 2010 Covid-19 Vaccine ( - 2023-2 5 season) 2024 02/12/2022, 06/29/2021, 12/21/2020, Additional history exists Influenza Vaccine (#1) 2024 2, 06/17/2020, 10/06/2017, Additional history exists Insurance MED[employer]UTIONS Care Teams Strip Feeder Relationship Specialty Start Date End Date Ty Reynolds MD [address] [place] [address] PCP - General Family Medicine 04/22/22
--- OUTSIDE RECORDS SUMMARY | 2024-10-26 10:24 | XMS_ITS | Referral Summary ---
Author Organization [address] Address [address] [place] [address] Care Team Providers Care Rug Cleaner Hand Name Role Phone Ty Reynolds MD Primary Care Prov ider Social History Tobacco Use Types Packs/Day Years Used Date Smoking Tobacco: Never Assessed Personal Safety Answer Date Recorded Getting School Help Needed Not on file 11/12 Comments Unknown Sex and Gender Information Value Date Recorded Sex Assigned at Not on file Legal Sex Female 12:54 AM DIRECTOR OF SPORTS MEDICINE Gender Identity Not on file Sexual Orientation Not on file Plan of Treatment Not on file Insurance MEDIC[employer] SOLUTIONS Care Teams Rug Cleaner Hand Relationship Specialty Start Date End Date Ty Reynolds MD [address] [place] [address] PCP - General Family Medicine 04/22/22
--- NOTE | 2024-10-26 10:35 | ECG_ITS ---
Test Date: 2024-10-26 11:20:29 Measurements Intervals [place] Rate: 71 P: 59 ID: [id number] QRS: 34 QRSD: 76 T: 36 QT: 375 QTc: 408 Interpretive Statements SINUS RHYTHM MINIMAL Q WAVES- ANTEROLAT/INF LEADS BASELINE ARTIFACT- I, II, AVR, AVL, AVF, V1 BORDERLINE ECG Compared to ECG 06/27/2024 12:46:06 No significant changes Electronically Signed On 10-26-2024 13:16:02 YARD JOCKEY by Karan Mcgrath D.O.
[2024-10-26 10:53] LABS: Basophils Absolute Auto 0.1 K/mm3 (0.0-0.1); Basophils Percent Auto 1.7 % (0.2-1.2); Eosinophils Absolute Auto 0.1 K/mm3 (0-0.3); Hematocrit 41.6 % (37.0-47.0); Hemoglobin 13.6 g/dL (12.0-15.0); Immature Granulocyte Absolute 0.02 K/mm3 (0.00-0.031); Immature Granulocyte Percent A 0.6 % (0-0.5); Lymphocytes Absolute Auto 1.21 K/mm3 (0.9-3.2); Lymphocytes Percent Auto 34.6 % (18.3-44.2); Mean Corpuscular HGB Conc 32.7 g/dl (32-36); Mean Corpuscular Hemoglobin 28.8 pg (26-34); Mean Corpuscular Volume 88.1 fl (80-100); Mean Platelet Volume 10.2 fl (7.4-10.4); Monocytes Absolute Auto 0.2 K/mm3 (0.1-0.6); Monocytes Percent Auto 6.6 % (2.6-8.5); Neutrophils Absolute Auto 1.9 K/mm3 (1.3-6.7); Neutrophils Percent Auto 54.5 % (45.5-73.1); Platelet Count Result 228 k/mm3 (150-375); Red Blood Count 4.72 M/mm3 (4.2-5.4); Red Cell Distribution Width 19.3 % (11.5-14.5); White Blood Count 3.5 K/mm3 (4.5-10.0)
--- OUTSIDE RECORDS SUMMARY | 2024-10-26 10:55 | XMS_ITS | Encounter Summary ---
Author Organization [facility] [address] [place] Address [address] [place] [address] Care Team Providers Care Collaborative Teacher Name Role Phone Ty Reynolds MD Primary Care Provider [phone] Encounter Details Date Type Department Care Team (Late Contact Info) Description 10/21/2024 Orders Only [facility] Oncology and Hematology - [address] [place] [address] Mir Andrade MD [address] [place] [address] [address] [place] [address] Social History Tobacco Use Types Packs/Day [...] (Late Contact Info) Description 10/28/2024 Orders Only [facility] Oncology and Hematology - [place] [address] [place] [address] Mir Andrade MD [address] [place] [address] [address] [place] [address] Malignant neoplasm of colon, unspecified part of colon (CMS/HCC) 11/04/2024 8:45 AM ORAL HEALTH THERAPIST Office Visit [facility] Oncology and Hematology [facility] [address] [place] [address] Mir Andrade MD [address] [facility] [address] [place] [address] documented as of this encounter Procedures Procedure Name Priority Date/Time Associated Diagnosis Comments BASIC METABOLIC PANEL Routine 10/21/2024 3:07 PM ORAL HEALTH THERAPIST CBC WITH DIFFERENTIAL Routine 10/21/2024 3:00 PM ORAL HEALTH THERAPIST documented in this encounter Results * BASIC METABOLIC PANEL (10/21/2024 3:07 PM ORAL HEALTH THERAPIST) Blood us Mir Andrade MD CHEMISTRY ORDERABLES Final Resu lt * CBC WITH DIFFERENTIAL (10/21/2024 3:00 PM ORAL HEALTH THERAPIST) Blood us Mir Andrade MD HEMATOLOGY ORDERABLES Final Res ult documented in this encounter Visit Diagnoses Not on filedocumented in this encounter Care Teams Collaborative Teacher Relationship Specialty Start Date End Date Ty Reynolds MD [address] [place] [address] [address] [place] [address] PCP - General Family Practice 08/13/24 documented as of this encounter
--- OUTSIDE RECORDS SUMMARY | 2024-10-26 10:55 | XMS_ITS | Clinical Summary ---
Author Organization [facility] [address] [place] Address [address] [place] [address] Care Team Providers Care Rivet Passer Name Role Phone Ty Reynolds MD Primary Care Prov ider Social History Tobacco Use Types Packs/Day Years Used Date Smoking Tobacco: Never Assessed Personal Safety Answer Date Recorded Getting School Help Needed Not on file 11/12 Comments Unknown Sex and Gender Information Value Date Recorded Sex Assigned at Not on file Legal Sex Female 12:54 AM MOVING PICTURE PRODUCER Gender Identity Not on file Sexual Orientation [...] history exists Insurance [employer]IONS Care Teams Rivet Passer Relationship Specialty Start Date End Date Ty Reynolds MD [address] [place] [address] PCP - General Family Medicine 04/22/22
--- OUTSIDE RECORDS SUMMARY | 2024-10-26 10:55 | XMS_ITS | Clinical Summary ---
Author Organization [facility] Milagro weldon [address] Address [address] [place] [address] Care Team Providers Care School Clerk Name Role Phone Ty Reynolds MD Primary Care Provider [phone] Medications calcium citrate-vitamin d3 (CITRACAL D MAX) [...] Department Care Team Description 10/25/2024 Orders Only [facility] Oncology and Hematology - [address] [place] [address] Mir Andrade MD 10/21/2024 Orders Only [facility] Oncology and Hematology - [address] [place] [address] Mir Andrade MD 10/15/2024 External Device Data STL ABSTRACTION Provider, Abstract 10/14/2024 Orders Only [facility] Oncology and Hematology - [address] [place] [address] Mir Andrade MD Malignant neoplasm of colon, unspecified part of colon (CMS/HCC) 10/09/2024 External Device Data STL ABSTRACTION Provider, Abstract 10/09/2024 External Device Data STL ABSTRACTION Provider, Abstract 10/08/2024 Orders Only [facility] Oncology and Hematology - [address] [place] [address] Mir Andrade MD 10/07/2024 8:45 AM COOK CHIEF Office Visit [facility] Oncology and Hematology - [address] [place] [address] Mir Andrade MD Malignant neoplasm of colon, unspecified part of colon (CMS/HCC) (Primary Dx) 10/02/2024 External Device Data STL ABSTRACTION Provider, Abstract 09/30/2024 Orders Only [facility] Oncology and Hematology - [address] [place] [address] Mri Andrade MD Malignant neoplasm of colon, unspecified part of colon (CMS/HCC) 09/27/2024 Orders Only [facility] Oncology and Hematology - [address] [place] [address] Mir Andrade MD 09/16/2024 Orders Only [facility] Oncology and Hematology - [address] [place] [address] Mir Andrade MD Malignant neoplasm of colon, unspecified part of colon (CMS/HCC) 09/13/2024 Orders Only [facility] Oncology and Hematology - [address] [place] [address] Mir Andrade MD 09/02/2024 Orders Only [facility] Oncology and Hematology - [address] [place] [phone] Mir Andrade MD Malignant neoplasm of colon, unspecified part of colon (CMS/HCC) 08/21/2024 Abstract [facility] Oncology and Hematology - [address] [place] [phone] Tung Sepulveda, [facility] 08/21/2024 Orders Only [facility] Oncology and Hematology - [address] [place] [phone] Mir Andrade MD 08/20/2024 Orders Only [facility] Oncology and Hematology - [address] [place] [phone] Mir Andrade MD Malignant neoplasm of colon, unspecified part of colon (CMS/HCC) (Primary Dx) 08/13/2024 Refill [facility] Oncology and Hematology - [place] [address] [place] [address] Mir Andrade MD Malignant neoplasm of colon, unspecified part of colon (CMS/HCC) (Primary Dx) 08/12/2024 Telephone [facility] Oncology and Hematology [facility] [address] [place] [address] Mir Andrade MD [employer] 08/02/2024 3:30 PM COOK CHIEF Telephone Check Up [facility] Oncology and Hematology - [place] [address] [place] [address] Mir Andrade MD 08/01/2024 Telephone [facility] Oncology and Hematology - [place] [address] [place] [address] Mir Andrade MD Chemotherapy 07/31/2024 Orders Only [facility] Oncology and Hematology - [address] [place] [address] Mir Andrade MD from Last 3 Months [...] Comments Blood Pressure 130/77 10/07/2024 8:37 AM COOK CHIEF Pulse 71 10/07/2024 8:37 AM COOK CHIEF Temperature 36.4 C (97.6 F) 10/07/2024 8:37 AM COOK CHIEF Respiratory Rate 15 10/07/2024 8:37 AM COOK CHIEF Oxygen Saturation 97% 10/07/2024 8:37 AM COOK CHIEF Inhaled Oxygen Concentration - - Weight 47.5 kg (104 lb 12.8 oz) 10/07/2024 8:37 AM COOK CHIEF Height 152.4 cm (5') 07/17/2024 3:10 PM CDT Body Mass Index 20.47 07/17/2024 3:10 PM CDT Plan of Treatment Upcoming Encounters Date Type Department Care Team (Late st Contact Info) Description 10/28/2024 Orders Only [facility] Oncology and Hematology [facility] [address] [place] [address] Mir Andrade MD [address] [employer] [address] [place] [address] Malignant neoplasm of colon, unspecified part of colon (CMS/HCC) 11/04/2024 8:45 AM COOK CHIEF Office Visit [facility] Oncology and Hematology [facility] [address] [place] [address] Mir Andrade MD [address] [employer] [address] [place] [address] Health Maintenance Due Date Last Done Comments DTAP/TDAP/TD VACCINES (1 - Tdap) 1964 PNEUMOCOCCAL VACCINE 65+ YEARS (1 of 1 - PCV) 04/01/19 95 ZOSTER VACCINE (1 of 2) 1995 OSTEOPOROSIS SCREENING 2010 RSV VACCINE (60+ or ) (1 - 1-dose 75+ series) 2020 INFLUENZA VACCINE (#1) 2024 Medicare Advantage (NE) Prev entative Visit/Annual Wellness Visit 09/18/2024 Procedures Procedure Name Priority Date/Time Associated Diagnosis Comments BASIC METABOLIC PANEL Routine 10/21/2024 3:07 PM COOK CHIEF CBC WITH DIFFERENTIAL Routine 10/21/2024 3:00 PM COOK CHIEF BASIC METABOLIC PANEL Routine 10/07/2024 11:16 AM COOK CHIEF COMPREHENSIVE METABOLIC PANEL Routine 09/23/2024 12:34 PM COOK CHIEF BASIC METABOLIC PANEL Routine 09/23/2024 12:33 PM COOK CHIEF COMPREHENSIVE METABOLIC PANEL Routine 09/10/2024 12:39 PM COOK CHIEF BASIC METABOLIC PANEL Routine 09/10/2024 12:11 PM COOK CHIEF CBC WITH DIFFERENTIAL Routine 09/10/2024 12:07 PM COOK CHIEF COMPREHENSIVE METABOLIC PANEL Routine 08/20/2024 12:59 PM COOK CHIEF CBC WITH DIFFERENTIAL Routine 08/20/2024 10:55 AM COOK CHIEF GLUCOSE LEVEL Routine 07/30/2024 11:55 AM COOK CHIEF PET BONE IMG W CT SKL BSE MID THG Routine 07/30/2024 8:04 AM COOK CHIEF from Last 3 Months Results * BASIC METABOLIC PANEL (10/21/2024 3:07 PM COOK CHIEF) Only the most recent of4 resultswithin the time period is included. Blood us Mir Andrade MD CHEMISTRY ORDERABLES Final Resu lt * CBC WITH DIFFERENTIAL (10/21/2024 3:00 PM COOK CHIEF) Only the most recent of3 resultswithin the time period is included. Blood us Mir Andrade MD HEMATOLOGY ORDERABLES Final Res ult * COMPREHENSIVE METABOLIC PANEL (09/23/2024 12:34 PM COOK CHIEF) Only the most recent of3 resultswithin the time period is included. Blood Mir Andrade MD CHEMISTRY ORDERABLES Final Resu lt * GLUCOSE LEVEL (07/30/2024 11:55 AM COOK CHIEF) Blood Mir Andrade MD CHEMISTRY ORDERABLES Final Resu lt * PET BONE IMG W CT SKB MDTH (07/30/2024 8:04 AM COOK CHIEF) Anatomical Region Laterality Modality Other Mir Andrade MD PE ORDERABLES Final Result from Last 3 Months Insurance [employer] PPO [facility] Care Teams School Clerk Relationship Specialty Start Date End Date Ty Reynolds MD [address] [address] PCP - General Family Practice 08/13/24
--- OUTSIDE RECORDS SUMMARY | 2024-10-26 10:55 | XMS_ITS | Continuity of Care Document ---
Author Organization [facility] [place] [address] [place] [address] Phone Care Team Providers Care Meat Team Member Name Role Phone Ramires OD, Emeka Unavailable Unavailable Procedures Procedure Date Eye Exam & Treatment Refraction Eye Exam & Treatment Refraction Eye Exam & Treatment Refraction Advance Directives Directive Yes / No Effective Date File Name No Information Encounters Encounter Description Practice Location Reason(s) For Visit Diagnoses Date Provider Providers Copied on Encounter [facility], [address] [place] [address] [address], [place], [place], [id number], tel:[phone] [facility] No Information Sep-3 0-201 0 Ramires OD Emeka. [address], [place], [place], [facility], . tel:[phone] [facility], [address] [place] [address] [address], [place], [place], [id number], tel:[phone] [facility] No Information Sep-0 3-200 9 Ramires OD Emeka. [address], [place], [place], [facility], . tel:[phone] [facility], [address] [place] [address] [address], [place], [place], [id number], tel:[phone] [facility] No Information January-2 2-200 8 Ramires OD Emeka. [address], [place], [address], [place]. tel:[phone] Family History Family Member Type Diagnosis Age At Onset No Information Payers Payer name Insurance type Covered democrat ID Authoriza tion(s) Medicare [place] [id number] Social History Type Description Quantity Date Captured [...]
--- OUTSIDE RECORDS SUMMARY | 2024-10-26 10:55 | XMS_ITS | Encounter Summary ---
Author Organization [facility] [place] Address [address] [place] [address] Care Team Providers Care Corporate Wellness Coordinator Name Role Phone Ty Reynolds MD Primary Care Provider [phone] Encounter Details Date Type Department Care Team (Late Contact Info) Description 10/25/2024 Orders Only [facility] Oncology and Hematology - [address] [place] [address] Mir Andrade MD [address] [place] [address] [employer] [address] [place] [address] Social History Tobacco Use Types Packs/Day [...] (Late Contact Info) Description 10/28/2024 Orders Only [facility] Oncology and Hematology - [place] [address] [place] [address] Mir Andrade MD [address] [place] [address] [employer] [address] [place] [address] Malignant neoplasm of colon, unspecified part of colon (CMS/HCC) 11/04/2024 8:45 AM CARBIDE TOOL MAKER Office Visit [facility] Oncology and Hematology [facility] [address] [place] [address] Mir Andrade MD [address] [facility] [address] [place] [address] documented as of this encounter Visit Diagnoses Not on filedocumented in this encounter Care Teams Corporate Wellness Coordinator Relationship Specialty Start Date End Date Ty Reynolds MD [address] [facility] [address] [place] [phone] PCP - General Family Practice 08/13/24 documented as of this encounter
--- OUTSIDE RECORDS SUMMARY | 2024-10-26 10:55 | XMS_ITS | Referral Summary ---
Author Organization [address] Address [address] [place] [address] Care Team Providers Care Steam Plant Operator Name Role Phone Ty Reynolds MD Primary Care Prov ider Social History Tobacco Use Types Packs/Day Years Used Date Smoking Tobacco: Never Assessed Personal Safety Answer Date Recorded Getting School Help Needed Not on file 11/12 Comments Unknown Sex and Gender Information Value Date Recorded Sex Assigned at Not on file Legal Sex Female 12:54 AM RADIOLOGICAL HEALTH SPECIALIST Gender Identity Not on file Sexual Orientation Not on file Plan of Treatment Not on file Insurance MEDICARE SOLUTIONS [facility] MED[facility] Address: [id number] [place] [address] Care Teams Steam Plant Operator Relationship Specialty Start Date End Date Ty Reynolds MD [address] [place] [address] PCP - General Family Medicine 04/22/22
[2024-10-26 11:03] LABS: Alanine Aminotransferase 38 U/L (6-35); Albumin Level 4.5 g/dL (3.5-5.1); Alkaline Phosphatase 60 U/L (38-126); Anion Gap 10 mmol/L (4-12); Aspartate Amino Transferase 42 U/L (14-36); Bilirubin,Total 0.5 mg/dL (0.2-1.3); Blood Urea Nitrogen 20 mg/dL (7-17); Calcium 10.1 mg/dL (8.4-10.2); Carbon Dioxide 30 mmol/L (22-30); Chloride 101 mmol/L (98-107); Estimated CRCL calculation 41 ml/min; Estimated Glomerular Filt Rate > 60; Glucose 96 mg/dL (65-110); Sodium 141 mmol/L (137-145)
[2024-10-26 11:05] LABS: INR 0.9
[2024-10-26 11:06] LABS: Partial Thromboplastin Time 23.7 Seconds (22.3-36.8)
[2024-10-26 11:14] LABS: Troponin I < 0.012 ng/mL (0.000-0.034)
[2024-10-26 11:25] LABS: Glucose Point of Care 93 mg/dl (65-105)
--- NOTE | 2024-10-26 11:33 | PC.NURSE ---
patient refusing iv access at this time
--- NOTE | 2024-10-26 12:06 | ED.GENADULT ---
HPI - General Adult General Chief complaint: Neuro Symptoms/Deficit Stated complaint: chemo reaction Time Seen by Provider: 10/26/24 10:43 History of Present Illness HPI narrative: 79-year-old female with history of colon cancer currently following up with Oncology and on chemotherapy presents emergency department for evaluation for some difficulty with word finding that occurred on Monday. Patient states she did have her last chemotherapy on Monday on Monday evening she states she was sleeping on the couch and when she woke up she was having difficulty reading her phone and states that the words were all scattered like a crossword. Patient attempted to call her son but after 3 failed attempts ultimately the son ended up calling her. The family came over to check on her and the patient was having word-finding difficulty at that time. They denies any slurring of speech. They state the patient was having difficulty finding but was not having any word salad. Related Data Home Medications ?Medication ?Instructions ?Recorded ?Confirmed ?Last Taken ?Type calcium 315 mg (as 2 tablet PO BID 01/21/22 08/26/24 07/05/24 History citrate)-vitamin D3 6.25 mcg (250 unit) tablet (Citracal + Vitamin D Maximum) flaxseed oil 1,000 mg capsule 1,000 mg PO DAILY 01/21/22 08/26/24 08/01/24 History (Patterson-3 Flaxseed Oil) multivitamin 1 tablet PO DAILY 06/27/24 08/26/24 07/05/24 History ferrous sulfate 324 mg (65 mg 324 mg PO DAILY 07/31/24 08/26/24 Unknown History iron) tablet,delayed release Allergies Allergy/AdvReac Type Severity Reaction Status Date / Time No Known Allergies Allergy Verified 10/23/24 12:39 Review of Systems Review of Systems: All systems reviewed & are unremarkable except as noted in HPI and below PMFSH Past Medical History Medical History Cecal cancer Osteopenia Surgical History Surgical History History of colonoscopy 05/22/24 Dr. Torres History of right hemicolectomy (06/2024) For cecal cancer Family History Family History Father Dementia Mother Breast cancer Carcinoma of colon Social History Social History Smoking status: Never smoker Second hand tobacco smoke exposure: No Alcohol intake: current Drinks per week: 1 Substance use: never Substance use type: does not use Current Housing: Decline to Answer Concerned About Future Housing: Decline to Answer Difficulty Paying Gas/Electric Bills: Decline to Answer Difficulty Paying for Meds: Decline to Answer Currently Unemployed: Decline to Answer Education: Decline to Answer Difficulty w/ Childcare or Family Care: Decline to Answer Living arrangements: alone Occupation/Education: retired Gender identity (if verbalized by the patient): Female Sexual Orientation (if Verbalized by the Patient): Straight or Heterosexual Spiritual care concerns: No Agree to blood products: Yes Exam Narrative: APPEARANCE: Well appearing, no pain, no distress, well-nourished. HEAD: normocephalic, atraumatic. EYES: PERRLA/EOMI, conjunctivae clear. NOSE: Normal no drainage EARS:TMS clear with good light reflex. THROAT: Pharynx clear, no exudate. NECK: Supple. No adenopathy, no masses. RESPIRATORY: Airway patent, respirations nonlabored. Clear to auscultation bilaterally, no rales, rhonchi, wheezing. CARDIOVASCULAR: Regular rate and rhythm without murmurs rubs or gallops. ABDOMINAL: Soft, nontender, nondistended, normal bowel sounds MUSCULOSKELETAL: Moves all extremities. Strength/ROM intact, No edema, No calf tenderness. NEURO: Alert. Cranial nerves II through XII intact. Normal comprehensive neuro exam SKIN: Warm, dry. Normal Color Course Vital Signs Vital signs: Vital Signs Temperature 97.7 F 10/26/24 10:22 Pulse Rate 96 10/26/24 10:22 Respiratory Rate 20 10/26/24 10:22 Blood Pressure 155/60 H 10/26/24 10:22 Pulse Oximetry 100 10/26/24 10:22 Oxygen Delivery Room Air 10/26/24 10:22 Temperature 97.9 F 10/26/24 11:04 Pulse Rate 71 10/26/24 13:16 Respiratory Rate 13 10/26/24 13:16 Blood Pressure 126/70 10/26/24 13:16 Pulse Oximetry 97 10/26/24 13:16 Oxygen Delivery Room Air 10/26/24 10:22 Medical Decision Making MDM Narrative Medical decision making narrative: 79-year-old female present to the emergency department for evaluation for neurologic symptoms that occurred on Monday night. Patient's CT was negative. Patient was offered admission for further TIA evaluation cleaning an MRI but patient declined. Patient prefers to have outpatient follow-up. Case was discussed with Neurology and they are comfortable the patient have outpatient follow-up. Patient was encouraged of close follow-up with primary care physician to schedule the MRI and patient was also strongly encouraged that if she had any worsening symptoms she needed to call an ambulance immediately. Differential Diagnosis Differential Diagnosis: TIA, CVA, adverse drug reaction COVID, RSV, influenza, pneumonia, dehydration Vital Signs Vital Signs: Vital Signs Temperature 97.7 F 10/26/24 10:22 Pulse Rate 96 10/26/24 10:22 Respiratory Rate 20 10/26/24 10:22 Blood Pressure 155/60 H 10/26/24 10:22 Pulse Oximetry 100 10/26/24 10:22 Oxygen Delivery Room Air 10/26/24 10:22 Temperature 97.9 F 10/26/24 11:04 Pulse Rate 71 10/26/24 13:16 Respiratory Rate 13 10/26/24 13:16 Blood Pressure 126/70 10/26/24 13:16 Pulse Oximetry 97 10/26/24 13:16 Oxygen Delivery Room Air 10/26/24 10:22 Lab Data Lab results reviewed: Yes I reviewed the patient's lab results. 10/26/24 10:45 10/26/24 10:45 Labs: Lab Results 10/26/24 10/26/24 Range/Units 10:45 11:22 WBC 3.5 L (4.5-10.0) K/mm3 RBC 4.72 (4.2-5.4) M/mm3 Hgb 13.6 (12.0-15.0) g/dL Hct 41.6 (37.0-47.0) % MCV 88.1 (80-100) fl MCH 28.8 (26-34) pg MCHC 32.7 (32-36) g/dl RDW 19.3 H (11.5-14.5) % Plt Count 228 (150-375) k/mm3 MPV 10.2 (7.4-10.4) fl Immature Gran % (Auto) 0.6 H (0-0.5) % Neut % (Auto) 54.5 (45.5-73.1) % Lymph % (Auto) 34.6 (18.3-44.2) % Daggett % (Auto) 6.6 (2.6-8.5) % Eos % (Auto) 2.0 (0-4.4) % Baso % (Auto) 1.7 H (0.2-1.2) % Lymph # (Auto) 1.21 (0.9-3.2) K/mm3 Daggett # (Auto) 0.2 (0.1-0.6) K/mm3 Eos # (Auto) 0.1 (0-0.3) K/mm3 Baso # (Auto) 0.1 (0.0-0.1) K/mm3 Abs Immat Gran (auto) 0.02 (0.00-0.031) K/mm3 Absolute Neuts (auto) 1.9 (1.3-6.7) K/mm3 Absolute Nucleated RBC 0.000 (0.0-0.012) K/mm3 Nucleated RBC % 0.0 (0.0-0.2) % PT 13.0 (11.1-14.7) Seconds INR 0.9 APTT 23.7 (22.3-36.8) Seconds Sodium 141 (137-145) mmol/L Potassium 4.0 (3.4-5.0) mmol/L Chloride 101 (98-107) mmol/L Carbon Dioxide 30 (22-30) mmol/L Anion Gap 10 (4-12) mmol/L BUN 20 H (7-17) mg/dL Creatinine 0.69 L (0.7-1.0) mg/dL Estim Creat Clear Calc 41 ml/min Estimated GFR > 60 (59 - ) Glucose 96 (65-110) mg/dL POC Capillary Glucose 93 (65-105) mg/dl Calcium 10.1 (8.4-10.2) mg/dL Total Bilirubin 0.5 (0.2-1.3) mg/dL AST 42 H (14-36) U/L ALT 38 H (6-35) U/L Alkaline Phosphatase 60 (38-126) U/L Troponin I < 0.012 (0.000-0.034) ng/mL Total Protein 8.0 (6.3-8.2) g/dL Albumin 4.5 (3.5-5.1) g/dL Imaging Data Radiologist's impression: Impressions Chest X-Ray 10/26/24 10:55 IMPRESSION: 1. Stable mild scarring at the lung apices. Head/Neck CTA 10/26/24 13:43 IMPRESSION: 1. Normal aging brain. 2. No aneurysm or significant intracranial arterial stenosis. 3. 0% stenosis of the proximal internal carotid arteries relative to normal distal artery lumen diameters (NASCET criteria). Discharge Plan Discharge Clinical Impression: Brain TIA Patient Disposition: Home, Self-Care Condition: Stable Instructions: Antibiotic Form, Transient Ischemic Attack (ED) Additional Instructions: You were offered admission for further neurologic workup including an MRI but you preferred to have outpatient follow-up. If you have any worsening symptoms then please return to the emergency department by ambulance. Have close follow-up with your primary care physician to schedule an outpatient MRI. Have close follow-up with Neurology. Patient Language: Tanzanian Prescriptions: No Action flaxseed oil [Patterson-3 Flaxseed Oil] 1,000 mg capsule 1,000 mg PO DAILY Patient Comments: . Rx Instructions: administer with a meal calcium citrate-vitamin D3 [Citracal + D Maximum] 315 mg-6.25 mcg (250 unit) tablet 2 tablet PO BID Patient Comments: . multivitamin Tablet 1 tablet PO DAILY Patient Comments: . ferrous sulfate 324 mg (65 mg iron) Tablet,Delayed Release (Dr/Ec) 324 mg PO DAILY Patient Comments: . alendronate 70 mg tablet See Rx Instructions .ROUTE .COMPLEX Qty: 12 4RF Dose Instruction: TAKE 1 TAB BY MOUTH WEEKLY Patient Comments: TAKES ON TUESDAYS Rx Instructions: TAKE 1 TAB BY MOUTH WEEKLY Follow-up/Referrals: Gabriel Severino MD [Physician] - Ty Reynolds MD [Primary Care Provider] -
== END 2024-10-26 14:58 | disposition home or self-care (01) ==
PROVIDERS: Emergency Provider Emergency Medicine; PCP Family Medicine Adolescent Medicine
DX: G45.9 Transient cerebral ischemic attack, unspecified (principal); C18.9 Malignant neoplasm of colon, unspecified; M85.80 Other specified disorders of bone density and structure, unspecified site; Z90.49 Acquired absence of other specified parts of digestive tract; Z79.60 Long term (current) use of unspecified immunomodulators and immunosuppressants; R94.31 Abnormal electrocardiogram [ECG] [EKG]
CPT/HCPCS: 36415; 70496; 70498; 71045; 80053; 82948; 84484; 85025; 85610; 85730; 93005; 99284; Q9967

== ENCOUNTER 2024-10-28 08:47 | Outpatient (CLI) | payer MEDICARE, SELFPAY ==
--- NOTE | ~2024-10-28 | CT_ITS ---
Clinical Indication: Colon cancer CT Scan of the Chest, Abdomen, and Pelvis with Contrast: Technique: Contiguous sections were acquired throughout the chest, abdomen, and pelvis after intraven ous administration of 100 cc of Omnipaque 350. Dose reduction technique was used on this scan by uti natying automated exposure control and iterative reconstruction technique. The dose-length product (DL P) was 240.35 mGy-cm. Comparison: 06/28/2024 Findings: There is no evidence of any significant mediastinal, hilar or axillary lymphadenopathy. The mediastin al soft tissues and vascular structures appear normal. Small pericardial effusion present. No pleural effusion. Stable 5 mm right lower lobe pulmonary nodule (axial image 75). Stable linear scarring left lower lob e. Stable 4 mm left lower lobe pulmonary nodule (axial image 72). There is a new 1.5 cm hypodense mass in the central liver (axial image 101). The spleen, pancreas, ga llbladder, adrenals and kidneys are within normal limits. No evidence of aortic aneurysm. No lympha denopathy. No bowel obstruction or bowel wall thickening. Evidence of prior partial right colectomy. Extensive s tool suggests constipation.. Urinary bladder is unremarkable. No pelvic mass seen. No ascites. Impression: New 1.5 cm hypodense hepatic mass centrally. Given a new hypodense lesion, this is suspicious for met astasis until proven otherwise. Stable 5 mm right lower lobe pulmonary nodule and 4 mm left lower lobe pulmonary nodule, indeterminat e. Status post partial right colectomy. Constipation. Reviewed, dictated and finalized at [facility]. MAKER Impression: New 1.5 cm hypodense hepatic mass centrally. Given a new hypodense lesion, this is suspicious for metastasis until proven otherwise. Stable 5 mm right lower lobe pulmonary nodule and 4 mm left lower lobe pulmonar y nodule, indeterminate. Status post partial right colectomy. Constipation.
--- OUTSIDE RECORDS SUMMARY | 2024-10-28 09:09 | XMS_ITS | Clinical Summary ---
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
--- OUTSIDE RECORDS SUMMARY | 2024-10-28 09:09 | XMS_ITS | Continuity of Care Document ---
Author Organization [facility] Address [address] [place] [address] Phone Care Team Providers Care Shot Peening Operator Name Role Phone Ramires OD, Emeka Unavailable Unavailable Procedures Procedure Date Eye Exam & Treatment Refraction Eye Exam & Treatment Refraction Eye Exam & Treatment Refraction Advance Directives Directive Yes / No Effective Date File Name No Information Encounters Encounter Description Practice Location Reason(s) For Visit Diagnoses Date Provider Providers Copied on Encounter [facility], [address] [place] [address] [address], [place], [place], [id number], tel:[phone] [facility] No Information Sep-3 0-201 0 Ramires OD Emeka. [address], [place], [place], [facility], . tel:[phone] [facility], [address] [place] [address] [address], [place], [place], [id number], tel:[phone] [facility] No Information Sep-0 3-200 9 Ramires OD Emeka. [address], [place], [place], [facility], . tel:[phone] [facility], [address] [place] [address] [address], [place], [place], [id number], tel:[phone] [facility] No Information January-2 2-200 8 Ramires OD Emeka. [address], [address], [place], [address], [place]. tel:[phone] Family History Family Member Type Diagnosis Age At Onset No Information Payers Payer name Insurance type Covered libertarian ID Authoriza tion(s) [place] [id number] Social History Type Description Quantity Date Captured [...]
--- OUTSIDE RECORDS SUMMARY | 2024-10-28 09:09 | XMS_ITS | Clinical Summary ---
Author Organization [facility] Address [address] [place] [address] Care Team Providers Care Mobile Application Architect Name Role Phone Ty Reynolds MD Primary Care Provider [phone] Medications calcium citrate-vitamin d3 (CITRACAL D MAX) [...] Encounters Date Type Department Care Team Description 10/28/2024 Orders Only [facility] Oncology and Hematology - [address] [place] [address] Mir Andrade MD Malignant neoplasm of colon, unspecified part of colon (CMS/HCC) 10/25/2024 Orders Only [facility] Oncology and Hematology - [address] [place] [address] Mir Andrade MD 10/21/2024 Orders Only [facility] Oncology and Hematology - [address] [place] [address] Mir Andrade MD 10/15/2024 External Device Data STL ABSTRACTION Provider, Abstract 10/14/2024 Orders Only [facility] Oncology and Hematology - [address] [place] [address] Mir Andrade MD Malignant neoplasm of colon, unspecified part of colon (CMS/HCC) 10/09/2024 External Device Data STL ABSTRACTION Provider, Abstract 10/09/2024 External Device Data STL ABSTRACTION Provider, Abstract 10/08/2024 Orders Only [facility] Oncology and Hematology - [address] [place] [address] Mir Andrade MD 10/07/2024 8:45 AM AIR CONTROL ELECTRONICS OPERATOR Office Visit [facility] Oncology and Hematology - [address] [place] [id number] Mir Andrade MD Malignant neoplasm of colon, unspecified part of colon (CMS/HCC) (Primary Dx) 10/02/2024 External Device Data STL ABSTRACTION Provider, Abstract 09/30/2024 Orders Only [facility] Oncology and Hematology - [address] [place] [id number] Mir Andrade MD Malignant neoplasm of colon, unspecified part of colon (CMS/HCC) 09/27/2024 Orders Only [facility] Oncology and Hematology - [address] [place] [address] Mir Andrade MD 09/16/2024 Orders Only [facility] Oncology and Hematology - [address] [place] [address] Mir Andrade MD Malignant neoplasm of colon, unspecified part of colon (CMS/HCC) 09/13/2024 Orders Only [facility] Oncology and Hematology - [address] [place] [id number] Mir Andrade MD 09/02/2024 Orders Only [facility] Oncology and Hematology - [address] [place] [id number] Mir Andrade MD Malignant neoplasm of colon, unspecified part of colon (CMS/HCC) 08/21/2024 Abstract [facility] Oncology and Hematology - [address] [place] [id number] [facility] 08/21/2024 Orders Only [facility] Oncology and Hematology - [address] [place] [address] Mir Andrade MD 08/20/2024 Orders Only [facility] Oncology and Hematology - [address] [place] [address] Mir Andrade MD Malignant neoplasm of colon, unspecified part of colon (CMS/HCC) (Primary Dx) 08/13/2024 Refill [facility] Oncology and Hematology [facility] [address] [place] [address] Mir Andrade MD Malignant neoplasm of colon, unspecified part of colon (CMS/HCC) (Primary Dx) 08/12/2024 Telephone [facility] Oncology and Hematology [facility] [address] [place] [address] Mir Andrade MD [facility] 08/02/2024 3:30 PM AIR CONTROL ELECTRONICS OPERATOR Telephone Check Up [facility] Oncology and Hematology [facility] [address] [place] [address] Mir Andrade MD 08/01/2024 Telephone [facility] Oncology and Hematology - [place] [address] [place] [address] Mir Andrade MD Chemotherapy 07/31/2024 Orders Only [facility] Oncology and Hematology - [place] [address] [place] [address] Mir Andrade MD from Last 3 Months [...] Comments Blood Pressure 130/77 10/07/2024 8:37 AM AIR CONTROL ELECTRONICS OPERATOR Pulse 71 10/07/2024 8:37 AM AIR CONTROL ELECTRONICS OPERATOR Temperature 36.4 C (97.6 F) 10/07/2024 8:37 AM AIR CONTROL ELECTRONICS OPERATOR Respiratory Rate 15 10/07/2024 8:37 AM AIR CONTROL ELECTRONICS OPERATOR Oxygen Saturation 97% 10/07/2024 8:37 AM AIR CONTROL ELECTRONICS OPERATOR Inhaled Oxygen Concentration - - Weight 47.5 kg (104 lb 12.8 oz) 10/07/2024 8:37 AM AIR CONTROL ELECTRONICS OPERATOR Height 152.4 cm (5') 07/17/2024 3:10 PM CDT Body Mass Index 20.47 07/17/2024 3:10 PM CDT Plan of Treatment Upcoming Encounters Date Type Department Care Team (Late st Contact Info) Description 11/04/2024 8:45 AM AIR CONTROL ELECTRONICS OPERATOR Office Visit [facility] Oncology and Hematology - [address] [place] [address] Mir Andrade MD [address] [facility] [address] [place] [address] Health Maintenance Due Date Last Done Comments DTAP/TDAP/TD VACCINES (1 - Tdap) 1964 PNEUMOCOCCAL VACCINE 65+ YEARS (1 of 1 - PCV) 04/01/19 95 ZOSTER VACCINE (1 of 2) 1995 OSTEOPOROSIS SCREENING 2010 RSV VACCINE (60+ or ) (1 - 1-dose 75+ series) 2020 INFLUENZA VACCINE (#1) 2024 Procedures Procedure Name Priority Date/Time Associated Diagnosis Comments BASIC METABOLIC PANEL Routine 10/21/2024 3:07 PM AIR CONTROL ELECTRONICS OPERATOR CBC WITH DIFFERENTIAL Routine 10/21/2024 3:00 PM AIR CONTROL ELECTRONICS OPERATOR BASIC METABOLIC PANEL Routine 10/07/2024 11:16 AM AIR CONTROL ELECTRONICS OPERATOR COMPREHENSIVE METABOLIC PANEL Routine 09/23/2024 12:34 PM AIR CONTROL ELECTRONICS OPERATOR BASIC METABOLIC PANEL Routine 09/23/2024 12:33 PM AIR CONTROL ELECTRONICS OPERATOR COMPREHENSIVE METABOLIC PANEL Routine 09/10/2024 12:39 PM AIR CONTROL ELECTRONICS OPERATOR BASIC METABOLIC PANEL Routine 09/10/2024 12:11 PM AIR CONTROL ELECTRONICS OPERATOR CBC WITH DIFFERENTIAL Routine 09/10/2024 12:07 PM AIR CONTROL ELECTRONICS OPERATOR COMPREHENSIVE METABOLIC PANEL Routine 08/20/2024 12:59 PM AIR CONTROL ELECTRONICS OPERATOR CBC WITH DIFFERENTIAL Routine 08/20/2024 10:55 AM AIR CONTROL ELECTRONICS OPERATOR GLUCOSE LEVEL Routine 07/30/2024 11:55 AM AIR CONTROL ELECTRONICS OPERATOR PET BONE IMG W CT SKL BSE MID THG Routine 07/30/2024 8:04 AM AIR CONTROL ELECTRONICS OPERATOR from Last 3 Months Results * BASIC METABOLIC PANEL (10/21/2024 3:07 PM AIR CONTROL ELECTRONICS OPERATOR) Only the most recent of4 resultswithin the time period is included. Blood us Mir Andrade MD CHEMISTRY ORDERABLES Final Resu lt * CBC WITH DIFFERENTIAL (10/21/2024 3:00 PM AIR CONTROL ELECTRONICS OPERATOR) Only the most recent of3 resultswithin the time period is included. Blood us Mir Andrade MD HEMATOLOGY ORDERABLES Final Res ult * COMPREHENSIVE METABOLIC PANEL (09/23/2024 12:34 PM AIR CONTROL ELECTRONICS OPERATOR) Only the most recent of3 resultswithin the time period is included. Blood Mir Andrade MD CHEMISTRY ORDERABLES Final Resu lt * GLUCOSE LEVEL (07/30/2024 11:55 AM AIR CONTROL ELECTRONICS OPERATOR) Blood Mir Andrade MD CHEMISTRY ORDERABLES Final Resu lt * PET BONE IMG W CT SKB MDTH (07/30/2024 8:04 AM AIR CONTROL ELECTRONICS OPERATOR) Anatomical Region Laterality Modality Other Mir Andrade MD PE ORDERABLES Final Result from Last 3 Months Insurance [employer] PPO MCR Care Teams Mobile Application Architect Relationship Specialty Start Date End Date Ty Reynolds MD [address] [place] [phone] PCP - General Family Practice 08/13/24
--- OUTSIDE RECORDS SUMMARY | 2024-10-28 09:09 | XMS_ITS | Referral Summary ---
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 MEDICARE Address: [id number] [place] [address] Care Teams Automotive Sales Associate Relationship Specialty Start Date End Date Ty Reynolds MD [address] [place] [address] PCP - General Family Medicine 04/22/22
== END 2024-10-28 08:48 | disposition home or self-care (01) ==
LOC: ANHIMG 08:53
PROVIDERS: PCP Family Medicine Adolescent Medicine; Visit Provider Internal Medicine Hematology & Oncology
DX: C18.9 Malignant neoplasm of colon, unspecified (principal); R16.0 Hepatomegaly, not elsewhere classified; R91.8 Other nonspecific abnormal finding of lung field; Z90.49 Acquired absence of other specified parts of digestive tract; R19.7 Diarrhea, unspecified
CPT/HCPCS: 71260; 74177; Q9967

== ENCOUNTER 2024-12-05 12:25 | Outpatient (CLI) | payer MEDICARE, SELFPAY ==
--- NOTE | ~2024-12-05 | MR_ITS ---
MRI of the brain Clinical History: Confusion Technique: Axial and sagittal T1-weighted images were acquired. These were followed by axial T2-weigh sydnie, diffusion weighted, gradient, and FLAIR images. Findings: There is no acute infarct, intracranial hemorrhage or mass lesion. There are minimal chroni c white matter changes in the periventricular white matter. Ventricles and subarachnoid spaces are mildly dilated. Orbits are unremarkable. Paranasal sinuses and mastoids are clear. Major intracranial flow voids are intact. Sagittal midline structures are intact. IMPRESSION: No acute infarct, intracranial hemorrhage, or mass lesion. Minimal chronic microvascular ischemic changes and mild generalized atrophy. Reviewed, dictated and finalized at [facility].
--- OUTSIDE RECORDS SUMMARY | 2024-12-05 12:51 | XMS_ITS | Clinical Summary ---
Author Organization [facility] Milagro Patterson Address [address] [place] [address] Care Team Providers Care Cisco Engineer Name Role Phone Ty Reynolds MD Primary Care Provider [phone]- [phone] Allergies No known active allergies Medications calcium citrate-vitamin d3 (CITRACAL D MAX) 315 mg-6.25 mcg (250 unit) Tablet Take 1 Tablet by mouth 2 times daily. Active multivitamin (DAILY-DAVID) tablet Take 1 Tablet by mouth daily. Active alendronate (FOSAMAX) 10 mg tablet Take 10 mg by mouth every 7 days. empty stomach beofore other meds,with full glass [...] or vomiting 30 Tablet 1 4 Active atorvastatin (LIPITOR) 40 mg tablet Take 1 Tablet by mouth daily. 5 Active aspirin (ECOTRIN EC) 81 mg Tablet, Delayed Release (E.C.) Take 81 mg by mouth daily. Active Active Problems No known active problems Encounters Date Type Department Care Team Description 12/04/2024 Orders Only [facility] Oncology and Hematology - [place] [address] [place] [address] Mir Andrade MD 12/02/2024 9:15 AM CDT Office Visit [facility] Oncology and Hematology - [place] [address] [place] [phone] Mir Andrade MD Malignant neoplasm of colon, unspecified part of colon (CMS/HCC) (Primary Dx) 11/25/2024 Orders Only [facility] Oncology and Hematology - [place] [address] [place] [phone] Mir Andrade MD Malignant neoplasm of colon, unspecified part of colon (CMS/HCC) 11/19/2024 Orders Only [facility] Oncology and Hematology - [place] [address] [place] [phone] Mir Andrade MD 11/18/2024 8:30 AM PROFESSIONAL WRESTLER Office Visit [facility] Oncology and Hematology - [place] [address] [place] [phone] Mir Andrade MD Malignant neoplasm of colon, unspecified part of colon (CMS/HCC) (Primary Dx) 11/18/2024 Orders Only [facility] Oncology and Hematology - [place] [address] [place] [phone] Mir Andrade MD 11/11/2024 Orders Only [facility] Oncology and Hematology - [place] [address] [place] [phone] Mir Andrade MD Malignant neoplasm of colon, unspecified part of colon (CMS/HCC) 11/05/2024 External Device Data STL ABSTRACTION Provider, Abstract 11/04/2024 8:45 AM PROFESSIONAL WRESTLER Office Visit [facility] Oncology and Hematology [facility] [address] [place] [phone] Mir Andrade MD Malignant neoplasm of colon, unspecified part of colon (CMS/HCC) (Primary Dx) 11/04/2024 Orders Only [facility] Oncology and Hematology - [place] [address] [place] [address] Mir Andrade MD 11/04/2024 Abstract [facility] Oncology and Hematology - [place] [address] [place] [address] Mir Andrade MD 10/28/2024 Orders Only [facility] Oncology and Hematology - [place] [address] [place] [address] Mir Andrade MD Malignant neoplasm of colon, unspecified part of colon (CMS/HCC) 10/25/2024 Orders Only [facility] Oncology and Hematology - [place] [address] [place] [address] Mir Andrade MD 10/21/2024 Orders Only [facility] Oncology and Hematology - [place] [address] [place] [address] Mir Andrade MD 10/15/2024 External Device Data STL ABSTRACTION Provider, Abstract 10/14/2024 Orders Only [facility] Oncology and Hematology - [place] [address] [place] [address] Mir Andrade MD Malignant neoplasm of colon, unspecified part of colon (CMS/HCC) 10/09/2024 External Device Data STL ABSTRACTION Provider, Abstract 10/09/2024 External Device Data STL ABSTRACTION Provider, Abstract 10/08/2024 Orders Only [facility] Oncology and Hematology - [place] [address] [place] [address] Mir Andrade MD 10/07/2024 8:45 AM PROFESSIONAL WRESTLER Office Visit [facility] Oncology and Hematology - [place] [address] [place] [address] Mir Andrade MD Malignant neoplasm of colon, unspecified part of colon (CMS/HCC) (Primary Dx) 10/02/2024 External Device Data STL ABSTRACTION Provider, Abstract 09/30/2024 Orders Only [facility] Oncology and Hematology - [place] [address] [place] [address] Mir Andrade MD Malignant neoplasm of colon, unspecified part of colon (CMS/HCC) 09/27/2024 Orders Only [facility] Oncology and Hematology - [place] [address] [place] [address] Mir Andrade MD 09/16/2024 Orders Only [facility] Oncology and Hematology - [place] [address] [place] [address] Mir Andrade MD Malignant neoplasm of colon, unspecified part of colon (CMS/HCC) 09/13/2024 Orders Only [facility] Oncology and Hematology - [place] [address] [place] [address] Mir Andrade MD from Last 3 Months [...] Sign Reading Time Taken Comments Blood Pressure 137/85 12/02/2024 9:18 AM CDT Pulse 89 12/02/2024 9:18 AM CDT Temperature 36.6 C (97.8 F) 12/02/2024 9:18 AM CDT Respiratory Rate 15 12/02/2024 9:18 AM CDT Oxygen Saturation 96% 12/02/2024 9:18 AM CDT Inhaled Oxygen Concentration - - Weight 46.2 kg (101 lb 12.8 oz) 12/02/2024 9:18 AM CDT Height 152.4 cm (5') 07/17/2024 3:10 PM CDT Body Mass Index 19.88 07/17/2024 3:10 PM CDT Plan of Treatment Upcoming Encounters Date Type Department Care Team (Late st Contact Info) Description 12/16/2024 9:45 AM CDT Office Visit [facility] Oncology and Hematology - [place] [address] [facility] [address] [place] [address] Mir Andrade MD [address] [facility] [address] [place] [address] Health Maintenance Due Date Last Done Comments DTAP/TDAP/TD VACCINES (1 - Tdap) 1964 PNEUMOCOCCAL VACCINE 50+ YEARS (1 of 1 - PCV) 04/01/19 95 ZOSTER VACCINE (1 of 2) 1995 OSTEOPOROSIS SCREENING 2010 RSV VACCINE (60+ or ) (1 - 1-dose 75+ series) 2020 INFLUENZA VACCINE (#1) 2024 Procedures Procedure Name Priority Date/Time Associated Diagnosis Comments CEA Routine 12/02/2024 2:58 PM CDT BASIC METABOLIC PANEL Routine 12/02/2024 2:29 PM CDT BASIC METABOLIC PANEL Routine 11/18/2024 2:37 PM PROFESSIONAL WRESTLER COMPREHENSIVE METABOLIC PANEL Routine 11/18/2024 10:50 AM PROFESSIONAL WRESTLER CBC WITH DIFFERENTIAL Routine 11/04/2024 12:05 PM PROFESSIONAL WRESTLER BASIC METABOLIC PANEL Routine 10/21/2024 3:07 PM PROFESSIONAL WRESTLER CBC WITH DIFFERENTIAL Routine 10/21/2024 3:00 PM PROFESSIONAL WRESTLER BASIC METABOLIC PANEL Routine 10/07/2024 11:16 AM PROFESSIONAL WRESTLER COMPREHENSIVE METABOLIC PANEL Routine 09/23/2024 12:34 PM PROFESSIONAL WRESTLER BASIC METABOLIC PANEL Routine 09/23/2024 12:33 PM PROFESSIONAL WRESTLER COMPREHENSIVE METABOLIC PANEL Routine 09/10/2024 12:39 PM PROFESSIONAL WRESTLER BASIC METABOLIC PANEL Routine 09/10/2024 12:11 PM PROFESSIONAL WRESTLER CBC WITH DIFFERENTIAL Routine 09/10/2024 12:07 PM PROFESSIONAL WRESTLER from Last 3 Months Results * CEA (12/02/2024 2:58 PM CDT) Blood us Mir Andrade MD CHEMISTRY ORDERABLES Final Resu lt * BASIC METABOLIC PANEL (12/02/2024 2:29 PM CDT) Only the most recent of6 resultswithin the time period is included. Blood us Mir Andrade MD CHEMISTRY ORDERABLES Final Resu lt * COMPREHENSIVE METABOLIC PANEL (11/18/2024 10:50 AM PROFESSIONAL WRESTLER) Only the most recent of3 resultswithin the time period is included. Blood us Mir Andrade MD CHEMISTRY ORDERABLES Final Resu lt * CBC WITH DIFFERENTIAL (11/04/2024 12:05 PM PROFESSIONAL WRESTLER) Only the most recent of3 resultswithin the time period is included. Blood us Mir Andrade MD HEMATOLOGY ORDERABLES Final Res ult from Last 3 Months Insurance [employer] PPO [facility] Care Teams Cisco Engineer Relationship Specialty Start Date End Date Ty Reynolds MD [address] [place] [address] PCP - General Family Practice 08/13/24
--- OUTSIDE RECORDS SUMMARY | 2024-12-05 12:51 | XMS_ITS | Continuity of Care Document ---
Author Organization [facility] Address [address] [place] [address] Phone Care Team Providers Care Specialized Developer Name Role Phone Ramires OD, Emeka Unavailable Unavailable Procedures Procedure Date Eye Exam & Treatment Refraction Eye Exam & Treatment Refraction Eye Exam & Treatment Refraction Advance Directives Directive Yes / No Effective Date File Name No Information Encounters Encounter Description Practice Location Reason(s) For Visit Diagnoses Date Provider Providers Copied on Encounter [facility], [address] [place] [address] [address], [place], [place], [id number], tel:[phone] [facility] No Information Sep-3 0-201 0 Ramires OD Emeka. [address], [place], [place], [facility], . tel:[phone] [facility], [address] [place] [address] [address], [place], [place], [id number], tel:[phone] [facility] No Information Sep-0 3-200 9 Ramires OD Emeka. [address], [place], [place], [facility], . tel:[phone] [facility], [address] [place] [address] [address], [place], [place], [id number], tel:[phone] [facility] No Information January-2 2-200 8 Ramires OD Emeka. [address], [place], [address], [place]. tel:[phone] Family History Family Member Type Diagnosis Age At Onset No Information Payers Payer name Insurance type Covered green party ID Authoriza tion(s) [place] [id number] Social History Type Description Quantity Date Captured [...]
--- OUTSIDE RECORDS SUMMARY | 2024-12-05 12:51 | XMS_ITS | Clinical Summary ---
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 Gender Identity Not on file Sexual Orientation Not on file Plan of Treatment Health Maintenance Due Date Last Done Comments Depression Screening 1945 Fall Risk Assessment 1945 Hepatitis C Screening 1945 Osteoporosis Screening-Bone Density Scan 1945 Hepatitis B Screening 1963 Pneumococcal vaccine 65+ (1 of 1 - PCV) 1995 Zoster Vaccine (1 of 2) 1995 DTaP/Tdap/Td Vaccine (1 - Tdap) 10/04/2006 7 Well Visit 65+ 2010 Covid-19 Vaccine ( - 2023-2 5 season) 2024 02/12/2022, 06/29/2021, 12/21/2020, Additional history exists Influenza Vaccine (#1) 2024 2, 06/17/2020, 10/06/2017, Additional history exists Insurance [employer] Care Teams Dock Supervisor Relationship Specialty Start Date End Date Ty Reynolds MD [address] [place] [address] PCP - General Family Medicine 04/22/22
--- OUTSIDE RECORDS SUMMARY | 2024-12-05 12:51 | XMS_ITS | Referral Summary ---
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
--- OUTSIDE RECORDS SUMMARY | 2024-12-05 12:51 | XMS_ITS | Encounter Summary ---
Author Organization [facility] [employer] Address [address] [place] [address] Care Team Providers Care Paint Preparer Name Role Phone Ty Reynolds MD Primary Care Provider [phone] Encounter Details Date Type Department Care Team ([facility] Contact Info) Description 12/04/2024 Orders Only [facility] Oncology and Hematology [facility] [address] [place] [address] Mir Andrade MD [facility] [employer] [address] [place] [address] Social History Tobacco Use Types Packs/Day [...] Department Care Team (Late Contact Info) Description 12/16/2024 9:45 AM CDT Office Visit [facility] Oncology and Hematology [facility] [address] [place] [address] Mir Andrade MD [facility] [employer] [address] [place] [address] documented as of this encounter Procedures Procedure Name Priority Date/Time Associated Diagnosis Comments CEA Routine 12/02/2024 2:58 PM CDT BASIC METABOLIC PANEL Routine 12/02/2024 2:29 PM CDT documented in this encounter Results * CEA (12/02/2024 2:58 PM CDT) Blood us Mir Andrade MD CHEMISTRY ORDERABLES Final Resu lt * BASIC METABOLIC PANEL (12/02/2024 2:29 PM CDT) Blood us Mir Andrade MD CHEMISTRY ORDERABLES Final Resu lt documented in this encounter Visit Diagnoses Not on filedocumented in this encounter Care Teams Paint Preparer Relationship Specialty Start Date End Date Ty Reynolds MD [address] [address] PCP - General Family Practice 08/13/24 documented as of this encounter
== END 2024-12-05 12:26 | disposition home or self-care (01) ==
PROVIDERS: PCP Family Medicine Adolescent Medicine; Visit Provider Family Medicine Adolescent Medicine
DX: R41.0 Disorientation, unspecified (principal)
CPT/HCPCS: 70551

== ENCOUNTER 2024-12-24 08:29 | Outpatient (CLI) | payer MEDICARE, SELFPAY ==
--- OUTSIDE RECORDS SUMMARY | 2024-12-24 08:43 | XMS_ITS | Continuity of Care Document ---
Author Organization [facility] Address [address] [place] [address] Phone Care Team Providers Care Flow Specialist Name Role Phone Ramires OD, Emeka Unavailable Unavailable Procedures Procedure Date Eye Exam & Treatment Refraction Eye Exam & Treatment Refraction Eye Exam & Treatment Refraction Advance Directives Directive Yes / No Effective Date File Name No Information Encounters Encounter Description Practice Location Reason(s) For Visit Diagnoses Date Provider Providers Copied on Encounter [facility], [address] [place] [address] [address], [place], [place], [id number], tel:[phone] [facility] No Information Sep-3 0-201 0 Ramires OD Emeka. [address], [place], [place], [facility], . tel:[phone] [facility], [address] [place] [address] [address], [place], [place], [id number], tel:[phone] [facility] No Information Sep-0 3-200 9 Ramires OD Emeka. [address], [place], [place], [facility], . tel:[phone] [facility], [address] [place] [address] [address], [place], [place], [id number], tel:[phone] [facility] No Information January-2 2-200 8 Ramires OD Emeka. [address], [place], [address], [place]. tel:[phone] Family History Family Member Type Diagnosis Age At Onset No Information Payers Payer name Insurance type Covered alliance party ID Authoriza tion(s) [place] [id number] Social History Type Description Quantity Date Captured [...]
--- OUTSIDE RECORDS SUMMARY | 2024-12-24 08:43 | XMS_ITS | Clinical Summary ---
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
--- OUTSIDE RECORDS SUMMARY | 2024-12-24 08:43 | XMS_ITS | Encounter Summary ---
Author Organization [facility] Address [address] [place] [address] Care Team Providers Care Pharmacy Billing Adjudicator Name Role Phone Ty Reynolds MD Primary Care Provider [phone]- [phone] Encounter Details Date Type Department Care Team (Late Contact Info) Description 12/23/2024 Orders Only [facility] Oncology and [facility] [address] [place] [address] Mir Andrade MD [facility] [address] [place] [address] Malignant neoplasm of colon, unspecified part of colon (CMS/HCC) Social History Tobacco Use Types Packs/Day Years [...] Care Team (Late st Contact Info) Description 12/30/2024 9:00 AM CDT Office Visit [facility] Oncology [facility] Hematology [facility] [address] [place] [address] Mir Andrade MD [address] [place] [address] documented as of this encounter Visit Diagnoses Diagnosis Malignant neoplasm of colon, unspecified part of colon (CMS/HCC) documented in this encounter Care Teams Pharmacy Billing Adjudicator Relationship Specialty Start Date End Date Ty Reynolds MD PCP - General Family Practice 08/13/24 documented as of this encounter
--- OUTSIDE RECORDS SUMMARY | 2024-12-24 08:43 | XMS_ITS | Clinical Summary ---
Author Organization [facility] Milagro Patterson Address [address] [place] [address] Care Team Providers Care Novelty Dipper Name Role Phone Ty Reynolds MD Primary Care Provider +1- [phone] Allergies No known active allergies Medications calcium [...] Take 81 mg by mouth daily. Active gabapentin (NEURONTIN) 300 mg capsule Take 1 Capsule (300 mg) by mouth 2 times daily. 60 Capsule 5 Active Active Problems No known active problems Encounters Date Type Department Care Team Description 12/23/2024 Refill [facility] Oncology and Hematology - [place] [address] [place] [address] Mir Andrade MD 12/23/2024 Orders Only [facility] Oncology and Hematology - [place] [address] [place] [address] Mir Andrade MD Malignant neoplasm of colon, unspecified part of colon (CMS/HCC) 12/17/2024 Orders Only [facility] Oncology and Hematology - [place] [address] [place] [address] Mir Andrade MD 12/16/2024 9:45 AM CDT Office Visit [facility] Oncology and Hematology [facility] [address] [place] [address] Mir Andrade MD Malignant neoplasm of colon, unspecified part of colon (CMS/HCC) (Primary Dx) 12/09/2024 Orders Only [facility] Oncology and Hematology - [place] [address] [place] [address] Mir Andrade MD Malignant neoplasm of colon, unspecified part of colon (CMS/HCC) 12/04/2024 Orders Only [facility] Oncology and Hematology - [place] [address] [place] [address] Mir Andrade MD 12/02/2024 9:15 AM CDT Office Visit [facility] Oncology and Hematology - [place] [address] [place] [address] Mir Andrade MD Malignant neoplasm of colon, unspecified part of colon (CMS/HCC) (Primary Dx) 11/25/2024 Orders Only [facility] Oncology and Hematology - [address] [place] [address] Mir Andrade MD Malignant neoplasm of colon, unspecified part of colon (CMS/HCC) 11/19/2024 Orders Only [facility] Oncology and Hematology - [place] [place] [address] Mir Andrade MD 11/18/2024 8:30 AM DENTAL EQUIPMENT REPAIRER Office Visit [facility] Oncology and Hematology - [place] [place] [address] Mir Andrade MD Malignant neoplasm of colon, unspecified part of colon (CMS/HCC) (Primary Dx) 11/18/2024 Orders Only [facility] Oncology and Hematology - [place] [address] [place] [address] Mir Andrade MD 11/11/2024 Orders Only [facility] Oncology and Hematology - [place] [address] [place] [address] Mir Andrade MD Malignant neoplasm of colon, unspecified part of colon (CMS/HCC) 11/05/2024 External Device Data STL ABSTRACTION Provider, Abstract 11/04/2024 8:45 AM DENTAL EQUIPMENT REPAIRER Office Visit [facility] Oncology and Hematology - [place] [address] [place] [address] Mir Andrade MD Malignant neoplasm of colon, unspecified part of colon (CMS/HCC) (Primary Dx) 11/04/2024 Orders Only [facility] Oncology and Hematology - [place] [address] [place] [address] Mir Andrade MD 11/04/2024 Abstract [facility] On[facility] and Hematology - [place] [address] [place] [address] Mir Andrade MD 10/28/2024 Orders Only [facility] Oncology and Hematology - [address] [place] [address] Mir Andrade MD Malignant neoplasm of colon, unspecified part of colon (CMS/HCC) 10/25/2024 Orders Only [facility] Oncology and Hematology - [place] [address] [place] [phone] Mir Andrade MD 10/21/2024 Orders Only [facility] Oncology and Hematology - [place] [address] [place] [phone] Mir Andrade MD 10/15/2024 External Device Data STL ABSTRACTION Provider, Abstract 10/14/2024 Orders Only [facility] Oncology and Hematology - [place] [address] [place] [phone] Mir Andrade MD Malignant neoplasm of colon, unspecified part of colon (CMS/HCC) 10/09/2024 External Device Data STL ABSTRACTION Provider, Abstract 10/09/2024 External Device Data STL ABSTRACTION Provider, Abstract 10/08/2024 Orders Only [facility] Oncology and Hematology - [place] [place] [phone] Mir Andrade MD 10/07/2024 8:45 AM DENTAL EQUIPMENT REPAIRER Office Visit [facility] Oncology and Hematology - [address] [place] [address] Mir Andrade MD Malignant neoplasm of colon, unspecified part of colon (CMS/HCC) (Primary Dx) 10/02/2024 External Device Data STL ABSTRACTION Provider, Abstract 09/30/2024 Orders Only [facility] Oncology and Hematology - [place] [place] [address] Mir Andrade MD Malignant neoplasm of colon, unspecified part of colon (CMS/HCC) 09/27/2024 Orders Only [facility] Oncology and Hematology - [place] [address] [place] [address] Mir Andrade MD from Last [...] Reading Time Taken Comments Blood Pressure 137/85 12/16/2024 9:27 AM CDT Pulse 77 12/16/2024 9:27 AM CDT Temperature 36.6 C (97.8 F) 12/16/2024 9:27 AM CDT Respiratory Rate 15 12/16/2024 9:27 AM CDT Oxygen Saturation 96% 12/16/2024 9:27 AM CDT Inhaled Oxygen Concentration - - Weight 46.2 kg (101 lb 12.8 oz) 12/16/2024 9:27 AM CDT Height 152.4 cm (5') 07/17/2024 3:10 PM CDT Body Mass Index 19.88 07/17/2024 3:10 PM CDT Plan of Treatment Upcoming Encounters Date Type Department Care Team (Late st Contact Info) Description 12/30/2024 9:00 AM CDT Office Visit [facility] Oncology and Hematology - [place] [address] [place] [address] [facility] [address] [place] [address] Mir Andrade MD [address] [facility] [address] [place] [address] Health Maintenance Due Date Last Done Comments DTAP/TDAP/TD VACCINES (1 - Tdap) 1964 PNEUMOCOCCAL VACCINE 50+ YEARS (1 of 1 - PCV) 04/01/19 95 ZOSTER VACCINE (1 of 2) 1995 OSTEOPOROSIS SCREENING 2010 RSV VACCINE (60+ or ) (1 - 1-dose 75+ series) 2020 INFLUENZA VACCINE (#1) 2024 Procedures Procedure Name Priority Date/Time Associated Diagnosis Comments COMPREHENSIVE METABOLIC PANEL Routine 12/16/2024 12:02 PM CDT BASIC METABOLIC PANEL Routine 12/16/2024 11:32 AM CDT CEA Routine 12/02/2024 2:58 PM CDT BASIC METABOLIC PANEL Routine 12/02/2024 2:29 PM CDT BASIC METABOLIC PANEL Routine 11/18/2024 2:37 PM DENTAL EQUIPMENT REPAIRER COMPREHENSIVE METABOLIC PANEL Routine 11/18/2024 10:50 AM DENTAL EQUIPMENT REPAIRER CBC WITH DIFFERENTIAL Routine 11/04/2024 12:05 PM DENTAL EQUIPMENT REPAIRER BASIC METABOLIC PANEL Routine 10/21/2024 3:07 PM DENTAL EQUIPMENT REPAIRER CBC WITH DIFFERENTIAL Routine 10/21/2024 3:00 PM DENTAL EQUIPMENT REPAIRER BASIC METABOLIC PANEL Routine 10/07/2024 11:16 AM DENTAL EQUIPMENT REPAIRER from Last 3 Months Results * COMPREHENSIVE METABOLIC PANEL (12/16/2024 12:02 PM CDT) Only the most recent of2 resultswithin the time period is included. Blood us Mir Andrade MD CHEMISTRY ORDERABLES Final Resu lt * BASIC METABOLIC PANEL (12/16/2024 11:32 AM CDT) Only the most recent of5 resultswithin the time period is included. Blood us Mir Andrade MD CHEMISTRY ORDERABLES Final Resu lt * CEA (12/02/2024 2:58 PM CDT) Blood us Mir Andrade MD CHEMISTRY ORDERABLES Final Resu lt * CBC WITH DIFFERENTIAL (11/04/2024 12:05 PM DENTAL EQUIPMENT REPAIRER) Only the most recent of2 resultswithin the time period is included. Blood us Mir Andrade MD HEMATOLOGY ORDERABLES Final Res ult from Last 3 Months Insurance [employer] PPO MCR Care Teams Novelty Dipper Relationship Specialty Start Date End Date Ty Reynolds MD PCP - General Family Practice 08/13/24
--- OUTSIDE RECORDS SUMMARY | 2024-12-24 08:43 | XMS_ITS | Referral Summary ---
Author Organization [address] Address [address] [place] [address] Care Team Providers Care Arnp Name Role Phone Ty Reynolds MD Primary Care Prov ider Social History Tobacco Use Types Packs/Day Years Used Date Smoking Tobacco: Never Assessed Personal Safety Answer Date Recorded Getting School Help Needed Not on file 11/12 Comments Unknown Sex and Gender Information Value Date Recorded Sex Assigned at Not on file Legal Sex Female 12:54 AM [employer] Gender Identity Not on file Sexual Orientation Not on file Plan of Treatment Not on file Insurance MEDICARE ADVANTAGE Care Teams Arnp Relationship Specialty Start Date End Date Ty Reynolds MD [address] [place] [address] PCP - General Family Medicine 04/22/22
--- OUTSIDE RECORDS SUMMARY | 2024-12-24 08:43 | XMS_ITS | Encounter Summary ---
Author Organization [facility] [place] Address [address] [place] [address] Care Team Providers Care Events Intern Name Role Phone Ty Reynolds MD Primary Care Provider +1- [phone] Reason for Visit * Reason Onset Date Comments Medication Refill 12/23/2024 Encounter Details Date Type Department Care Team (Late Contact Info) Description 12/23/2024 Refill [facility] Oncology and Hematology [facility] [address] [place] [address] Mir Andrade MD [facility] [employer] [place] [address] Social History Tobacco Use Types Packs/Day [...] CDT Office Visit [facility] Oncology and Hematology [address] [place] [address] Mir Andrade MD [address] [place] [address] documented as of this encounter Visit Diagnoses Not on filedocumented in this encounter Care Teams Events Intern Relationship Specialty Start Date End Date Ty Reynolds MD PCP - General Family Practice 08/13/24 documented as of this encounter
[2024-12-24 09:41] LABS: Cholesterol 154 mg/dL (0-200); HDL Direct 96 mg/dL; Triglycerides 69 mg/dL (<150)
[2024-12-24 09:51] LABS: LDL Cholesterol Direct 34 mg/dL
[2024-12-24 10:01] LABS: Iron 76 ug/dL (37-170)
[2024-12-24 10:11] LABS: Percent Iron Saturation 19 % (20-50)
[2024-12-24 10:48] LABS: Folic Acid > 20.0 ng/mL (2.76->20)
[2024-12-24 11:09] LABS: Hemoglobin A1C 5.8 % (<5.7)
== END 2024-12-24 08:30 | disposition home or self-care (01) ==
LOC: ANHLAB 08:30
PROVIDERS: PCP Family Medicine Adolescent Medicine; Visit Provider Family Medicine Adolescent Medicine
DX: E78.00 Pure hypercholesterolemia, unspecified (principal); E50.0 Vitamin A deficiency with conjunctival xerosis; R73.01 Impaired fasting glucose
CPT/HCPCS: 36415; 80061; 82607; 82746; 83036; 83540; 83550

== ENCOUNTER 2025-01-10 08:25 | Outpatient (CLI) | payer MEDICARE, SELFPAY ==
--- OUTSIDE RECORDS SUMMARY | 2025-01-10 08:36 | XMS_ITS | Encounter Summary ---
Author Organization [facility] [place] Address [address] [place] [address] Care Team Providers Care Laborer Chicken Farm Name Role Phone Ty Reynolds MD Primary Care Provider +1- [phone] Encounter Details Date Type Department Care Team (Late Contact Info) Description 01/06/2025 Orders Only [facility] Oncology and Hematology [facility] [address] [place] [address] Mir Andrade MD [facility] [address] [address] [place] [address] Malignant neoplasm of colon, unspecified part [...] Care Team (Late st Contact Info) Description 01/27/2025 8:30 AM CDT Office Visit [facility] Oncology and Hematology [facility] [address] [place] [address] Mir Andrade MD [address] [place] [address] documented as of this encounter Visit Diagnoses Diagnosis Malignant neoplasm of colon, unspecified part of colon (CMS/HCC) documented in this encounter Care Teams Laborer Chicken Farm Relationship Specialty Start Date End Date Ty Reynolds MD PCP - General Family Practice 08/13/24 documented as of this encounter
--- OUTSIDE RECORDS SUMMARY | 2025-01-10 08:37 | XMS_ITS | Clinical Summary ---
Author Organization [facility] Milagro Patterson Address [address] [place] [address] Care Team Providers Care Public Weigher Name Role Phone Ty Reynolds MD Primary Care Provider +1- [phone] Allergies No known active allergies Medications calcium [...] Encounters Date Type Department Care Team Description 01/06/2025 Orders Only [facility] Oncology and Hematology - [place] [address] [place] [phone] Mir Andrade MD Malignant neoplasm of colon, unspecified part of colon (CMS/HCC) 12/30/2024 9:00 AM CDT Office Visit [facility] Oncology and Hematology - [address] [address] [place] [address] Mir Andrade MD Malignant neoplasm of colon, unspecified part of colon (CMS/HCC) (Primary Dx) 12/30/2024 Orders Only [facility] Oncology and Hematology - [place] [address] [place] [address] Mir Andrade MD 12/23/2024 Refill [facility] Oncology and Hematology - [place] [address] [place] [address] Mir Andrade MD 12/23/2024 Orders Only [facility] Oncology and Hematology - [place] [address] [place] [address] Mir Andrade MD Malignant neoplasm of colon, unspecified part of colon (CMS/HCC) 12/17/2024 Orders Only [facility] Oncology and Hematology - [place] [place] [address] Mir Andrade MD 12/16/2024 9:45 AM CDT Office Visit [facility] Oncology and Hematology - [place] [address] [place] [address] Mir Andrade MD Malignant neoplasm of colon, unspecified part of colon (CMS/HCC) (Primary Dx) 12/09/2024 Orders Only [facility] Oncology and Hematology - [place] [address] [place] [address] Mir Andrade MD Malignant neoplasm of colon, unspecified part of colon (CMS/HCC) 12/04/2024 Orders Only [facility] Oncology and Hematology - [place] [address] [place] [address] Mir Andrade MD 12/02/2024 9:15 AM CDT Office Visit [facility] Oncology and Hematology [facility] [address] [place] [address] Mir Andrade MD Malignant neoplasm of colon, unspecified part of colon (CMS/HCC) (Primary Dx) 11/25/2024 Orders Only [facility] Oncology and Hematology - [place] [address] [place] [address] Mir Andrade MD Malignant neoplasm of colon, unspecified part of colon (CMS/HCC) 11/19/2024 Orders Only [facility] Oncology and Hematology [facility] [address] [place] [address] Mir Andrade MD 11/18/2024 8:30 AM ESCALATOR SERVICE MECHANIC Office Visit [facility] Oncology and Hematology [facility] [address] [place] [address] Mir Andrade MD Malignant neoplasm of colon, unspecified part of colon (CMS/HCC) (Primary Dx) 11/18/2024 Orders Only [facility] Oncology and Hematology [facility] [address] [place] [address] Mir Andrade MD 11/11/2024 Orders Only [facility] Oncology and Hematology [facility] [address] [place] [address] Mir Andrade MD Malignant neoplasm of colon, unspecified part of colon (CMS/HCC) 11/05/2024 External Device Data STL ABSTRACTION Provider, Abstract 11/04/2024 8:45 AM ESCALATOR SERVICE MECHANIC Office Visit [facility] Hematology [facility] [address] [place] [address] Mir Andrade MD Malignant neoplasm of colon, unspecified part of colon (CMS/HCC) (Primary Dx) 11/04/2024 Orders Only [facility] Oncology and Hematology - [place] [address] Mir Andrade MD 11/04/2024 Abstract [facility] Oncology and Hematology - [place] [address] [place] [address] Mir Andrade MD 10/28/2024 Orders Only [facility] Oncology and Hematology - [place] [address] [place] [phone] Mir Andrade MD Malignant neoplasm of colon, unspecified part of colon (CMS/HCC) 10/25/2024 Orders Only [facility] Oncology and Hematology - [address] [place] [address] Mir Andrade MD 10/21/2024 Orders Only [facility] Oncology and Hematology - [address] [place] [address] Mir Andrade MD 10/15/2024 External Device Data STL ABSTRACTION Provider, Abstract 10/14/2024 Orders Only [facility] Oncology and Hematology - [address] [place] [address] Mir Andrade MD Malignant neoplasm of colon, unspecified part of colon (CMS/HCC) from Last 3 Months Family History Medical [...] Sign Reading Time Taken Comments Blood Pressure 122/61 12/30/2024 8:57 AM CDT Pulse 80 12/30/2024 8:57 AM CDT Temperature 36.3 C (97.3 F) 12/30/2024 8:57 AM CDT Respiratory Rate 15 12/30/2024 8:57 AM CDT Oxygen Saturation 96% 12/30/2024 8:57 AM CDT Inhaled Oxygen Concentration - - Weight 46.5 kg (102 lb 9.6 oz) 12/30/2024 8:57 A M CDT Height 152.4 cm (5') 07/17/2024 3:10 PM CDT Body Mass Index 20.04 07/17/2024 3:10 PM CDT Plan of Treatment Upcoming Encounters Date Type Department Care Team (Late st Contact Info) Description 01/27/2025 8:30 AM CDT Office Visit [facility] Oncology and Hematology [facility] [address] [facility] [address] [place] [address] Mir Andrade MD [address] [facility] [address] [place] [address] Health Maintenance Due Date Last Done Comments DTAP/TDAP/TD VACCINES (1 - Tdap) 1964 PNEUMOCOCCAL VACCINE 50+ YEARS (1 of 1 - PCV) 04/01/19 95 ZOSTER VACCINE (1 of 2) 1995 OSTEOPOROSIS SCREENING 2010 RSV VACCINE (60+ or ) (1 - 1-dose 75+ series) 2020 INFLUENZA VACCINE (#1) 2024 Procedures Procedure Name Priority Date/Time Associated Diagnosis Comments COMPREHENSIVE METABOLIC PANEL Routine 12/30/2024 3:29 PM CDT COMPREHENSIVE METABOLIC PANEL Routine 12/16/2024 12:02 PM CDT BASIC METABOLIC PANEL Routine 12/16/2024 11:32 AM CDT CEA Routine 12/02/2024 2:58 PM CDT BASIC METABOLIC PANEL Routine 12/02/2024 2:29 PM CDT BASIC METABOLIC PANEL Routine 11/18/2024 2:37 PM ESCALATOR SERVICE MECHANIC COMPREHENSIVE METABOLIC PANEL Routine 11/18/2024 10:50 AM ESCALATOR SERVICE MECHANIC CBC WITH DIFFERENTIAL Routine 11/04/2024 12:05 PM ESCALATOR SERVICE MECHANIC BASIC METABOLIC PANEL Routine 10/21/2024 3:07 PM ESCALATOR SERVICE MECHANIC CBC WITH DIFFERENTIAL Routine 10/21/2024 3:00 PM ESCALATOR SERVICE MECHANIC from Last 3 Months Results * COMPREHENSIVE METABOLIC PANEL (12/30/2024 3:29 PM CDT) Only the most recent of3 resultswithin the time period is included. Blood us Mir Andrade MD CHEMISTRY ORDERABLES Final Resu lt * BASIC METABOLIC PANEL (12/16/2024 11:32 AM CDT) Only the most recent of4 resultswithin the time period is included. Blood us Mir Andrade MD CHEMISTRY ORDERABLES Final Resu lt * CEA (12/02/2024 2:58 PM CDT) Blood us Mir Andrade MD CHEMISTRY ORDERABLES Final Resu lt * CBC WITH DIFFERENTIAL (11/04/2024 12:05 PM ESCALATOR SERVICE MECHANIC) Only the most recent of2 resultswithin the time period is included. Blood us Mir Andrade MD HEMATOLOGY ORDERABLES Final Res ult from Last 3 Months Insurance AETNA O [facility] Care Teams Public Weigher Relationship Specialty Start Date End Date Ty Reynolds MD PCP - General Family Practice 08/13/24
--- OUTSIDE RECORDS SUMMARY | 2025-01-10 08:37 | XMS_ITS | Referral Summary ---
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
--- OUTSIDE RECORDS SUMMARY | 2025-01-10 08:37 | XMS_ITS | Clinical Summary ---
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
--- OUTSIDE RECORDS SUMMARY | 2025-01-10 08:37 | XMS_ITS | Continuity of Care Document ---
Author Organization [facility] Address [address] [place] [address] Phone Care Team Providers Care Ceramic Coater Machine Name Role Phone Ramires OD, Emeka Unavailable Unavailable Procedures Procedure Date Eye Exam & Treatment Refraction Eye Exam & Treatment Refraction Eye Exam & Treatment Refraction Advance Directives Directive Yes / No Effective Date File Name No Information Encounters Encounter Description Practice Location Reason(s) For Visit Diagnoses Date Provider Providers Copied on Encounter [facility], [address] [place] [address] [address], [place], [place], [id number], tel:[phone] [facility] No Information Sep-3 0-201 0 Ramires OD Emeka. [address], [place], [place], [facility], . tel:[phone] [facility], [address] [place] [address] [address], [place], [place], [id number], tel:[phone] [facility] No Information Sep-0 3-200 9 Ramires OD Emeka. [address], [place], [place], [facility], . tel:[phone] [facility], [address] [place] [address] [address], [place], [place], [id number], tel:[phone] [facility] No Information January-2 2-200 8 Ramires OD Emeka. [address], [address], [place], [address], [place]. tel:[phone] Family History Family Member Type Diagnosis Age At Onset No Information Payers Payer name Insurance type Covered republican ID Authoriza tion(s) [place] [id number] Social History Type Description Quantity Date Captured [...]
--- NOTE | 2025-01-10 08:39 | ECHO_ITS ---
Patient Info Name: Elba Sandoval Age: 79 years : 1945 Gender: Female Ht: 60 in Wt: 100 lbs BSA: 1.38 m2 HR: 65 bpm BP: 147 / 74 mmHg Technical Quality: Good Exam Date: 01/10/2025 8:51 AM Exam Location: Echo Lab Patient Status: Outpatient Admit Date: 01/10/2025 Staff Ordering Physician: Rigo Gannon MD Lining Maker: Ale Bynum RDCS Attending Provider: Rigo Gannon MD Referring Physician: Jagdeep GARNICA; Exam Type: CA echo doppler w bubble study Study Info Indications I35.0 - Nonrheumatic aortic (valve) stenosis Complete two-dimensional, color flow and Doppler transthoracic echocardiogram is performed with agitated saline. Contrast/Agitated Saline Contrast/Ag. Saline: Agitated Saline Amount: 12.00 ml IV Access Condition: patent with no signs of infiltration New IV Access: Left Site Condition: IV removed Summary 1. Left ventricular chamber dimension is normal. 2. Left ventricular systolic function is normal, estimated at 65-70%. 3. The left ventricular diastolic function is grade I diastolic dysfunction. 4. E/e' 11 is mildly elevated. 5. Left atrial chamber dimension is mildly enlarged. 6. There is mild aortic valve sclerosis. 7. There is trace mitral valve regurgitation. 8. There is trace tricuspid valve regurgitation. 9. No pulmonary hypertension, estimated pulmonary arterial systolic pressure is 33 mmHg. 10. There is small circumferential pericardial effusion. Left Ventricle E/e' 11 is mildly elevated. Left ventricular chamber dimension is normal. Left ventricular systolic function is normal, estimated at 65-70%. The left ventricular diastolic function is grade I diastolic dysfunction. Right Ventricle Right ventricular systolic function is normal and with normal TAPSE 1.8 cm. Right ventricular chamber dimension is normal. Left Atria Left atrial chamber dimension is mildly enlarged. Right Atria Right atrial chamber dimension is normal. Atrial Septum Agitated saline injection with and without valsalva maneuver opacified right side cardiac chambers without shunt to left side cardiac chambers. Intact interatrial septum visualized by 2D and agitated saline imaging. Aortic Valve The aortic valve is trileaflet. There is mild aortic valve sclerosis. There is no aortic valve stenosis. There is no aortic valve regurgitation. Pulmonic Valve There is no pulmonic regurgitation. Mitral Valve There is no mitral valve stenosis. There is trace mitral valve regurgitation. Tricuspid Valve There is trace tricuspid valve regurgitation. No pulmonary hypertension, estimated pulmonary arterial systolic pressure is 33 mmHg. Pericardium/Pleural No cardiac tamponade. There is small circumferential pericardial effusion. Inferior Vena Cava Dilated inferior vena cava with >50% collapse upon inspiration consistent with normal right atrial pressure, 5 mmHg. Aorta The aortic root size at the sinus of Valsalva is normal. Left Ventricular Outflow Tract Name Value Normal LVOT 2D LVOT Diameter 1.7 cm LVOT Doppler LVOT Peak Gradient 5 mmHg LVOT Mean Gradient 2 mmHg LVOT VTI 23 cm LVOT VTI/AV VTI Ratio 0.8 LVOT Stroke Volume 50 ml LVOT CO 9.9 l/min LVOT CI 7.1 l/min/m2 Pulmonic Valve Name Value Normal PV Doppler PV Peak Gradient 5 mmHg Mitral Valve Name Value Normal MV Doppler MV Decel Bland 363 cm/s2 MV PHT 72 ms MV Area (PHT) 3.0 cm2 4.0-5.0 MV Diastolic Function MV E Peak Velocity 91 cm/s MV A Peak Velocity 113 cm/s MV E/A 0.8 MV Decel Time 250 ms MV Annular TDI MV E/e' (Septal) 10.8 <=8.0 MV E/e' (Lateral) 11.9 <=8.0 MV E/e' (Average) 11.3 Tricuspid Valve Name Value Normal TV Regurgitation Doppler TR Peak Velocity 265 cm/s TR Peak Gradient 23 mmHg Estimated PAP/RSVP RA Pressure 5 mmHg <=5 PA Systolic Pressure 33 mmHg <36 RV Systolic Pressure 33 mmHg <36 Aorta Name Value Normal Ascending Aorta Ao Root Diameter (MM) 3.2 cm Ao Root Diam Index (MM) 2.3 cm/m2 Aortic Valve Name Value Normal AV Doppler AV Peak Velocity 129 cm/s AV Peak Gradient 7 mmHg AV Mean Gradient 4 mmHg AV VTI 28 cm AV Area (Cont Eq VTI) 1.8 cm2 >=3.0 AV Area (Cont Eq Rayshawn) 1.8 cm2 AV Regurgitation 2D LVOT Area 2.2 cm2 Ventricles Name Value Normal LV Dimensions 2D/MM IVS Diastolic Thickness (2D) 1.0 cm 0.6-1.0 LVID Diastole (2D) 3.7 cm 3.8-5.2 LVIW Diastolic Thickness (2D) 0.9 cm 0.6-0.9 LVID Systole (2D) 2.1 cm 2.2-3.5 LVOT Diameter 1.7 cm LV Mass (2D Cubed) 107.93 g 67.00-162.00 LV Mass Index (2D Cubed) 78 g/m2 43-95 Relative Wall Thickness (2D) 0.51 LV Fractional Shortening/Ejection Fraction 2D/MM LV Fractional Shortening (2D) 41 % 27-45 LV EF (2D Teicholz) 73 % 54-74 LV Diastolic Volume (4C MOD) 74 ml LV EF (4C MOD) 73 % LV Diastolic Volume (2C MOD) 64 ml LV EF (2C MOD) 73 % LV Diastolic Volume (BP MOD) 74 ml 46-106 LV Diastolic Volume Index (BP MOD) 53 ml/m2 29-61 LV Systolic Volume (BP MOD) 19 ml 14-42 LV Systolic Volume Index (BP MOD) 14 ml/m2 8-24 LV EF (BP MOD) 74 % 54-74 LV Diastolic Length (4C) 7.1 cm LV Systolic Length (4C) 4.9 cm LV Stroke Volume (4C MOD) 54 ml RV Dimensions 2D/MM RVID Diastole (2D) 2.8 cm 2.5-3.5 Atria Name Value Normal LA Dimensions LA Dimension (MM) 3.1 cm 2.7-3.8 LA Volume (4C A-L) 46 ml LA Volume (BP A-L) 47 ml RA Dimensions RA Area (4C) 11.5 cm2 <=18.0 Report Signatures
== END 2025-01-10 08:26 | disposition home or self-care (01) ==
PROVIDERS: PCP Family Medicine Adolescent Medicine; Visit Provider Psychiatry & Neurology Neurology
DX: R93.1 Abnormal findings on diagnostic imaging of heart and coronary circulation (principal); G45.9 Transient cerebral ischemic attack, unspecified; I35.0 Nonrheumatic aortic (valve) stenosis
CPT/HCPCS: 93242; 93306; 96375

== ENCOUNTER 2025-02-24 08:17 | Outpatient (CLI) | payer MEDICARE, SELFPAY ==
--- NOTE | ~2025-02-24 | CT_ITS ---
Clinical Indication: Colon cancer CT Scan of the Chest, Abdomen, and Pelvis with Contrast: Technique: Contiguous sections were acquired throughout the chest, abdomen, and pelvis after intraven ous administration of 100 cc of Omnipaque 350. Dose reduction technique was used on this scan by uti natying automated exposure control and iterative reconstruction technique. The dose-length product (DL P) was 242.03 mGy-cm. Comparison: 10/28/2024 Findings: There is no evidence of any significant mediastinal, hilar or axillary lymphadenopathy. The mediastin al soft tissues appear normal. No pulmonary embolus. No aortic aneurysm or dissection. There is no evidence of pleural or pericardial effusion. Stable 3 mm left lower lobe pulmonary nodule present (axial image 73). Stable 5 mm right lower lobe p ulmonary nodule (axial image 71). There is linear scarring at the left lower lobe and lingula. Stable 1.5 cm hypodense, fluid attenuation lesion in the central liver (axial image 99). The spleen, pancreas, gallbladder, adrenals and kidneys are within normal limits. No evidence of aortic aneurysm . No lymphadenopathy. No bowel obstruction or bowel wall thickening. Evidence of prior partial colectomy. Extensive stool s uggests constipation. Urinary bladder is unremarkable. No pelvic mass seen. No ascites. Impression: Stable 1.5 cm hypodense central hepatic lesion. Stable subcentimeter pulmonary nodules, as detailed above. Constipation. Reviewed, dictated and finalized at [facility]. Impression: Stable 1.5 cm hypodense central hepatic lesion. Stable subcentimeter pulmonary nodules, as detailed above. Constipation.
--- OUTSIDE RECORDS SUMMARY | 2025-02-24 08:35 | XMS_ITS | Continuity of Care Document ---
Author Organization [facility] Address [address] [place] [address] Phone Care Team Providers Care Affirmative Action Specialist Name Role Phone Ramires OD, Emeka Unavailable Unavailable Procedures Procedure Date Eye Exam & Treatment Refraction Eye Exam & Treatment Refraction Eye Exam & Treatment Refraction Advance Directives Directive Yes / No Effective Date File Name No Information Encounters Encounter Description Practice Location Reason(s) For Visit Diagnoses Date Provider Providers Copied on Encounter [facility], [address] [place] [address] [address], [place], [place], [id number], tel:[phone] [facility] No Information Sep-3 0-201 0 Ramires OD Emeka. [address], [place], [place], [facility], . tel:[phone] [facility], [address] [place] [address] [address], [place], [place], [id number], tel:[phone] [facility] No Information Sep-0 3-200 9 Ramires OD Emeka. [address], [place], [place], [facility], . tel:[phone] [facility], [address] [place] [address] [address], [place], [place], [id number], tel:[phone] [facility] No Information January-2 2-200 8 Ramires OD Emeka. [address], [address], [place], [address], [place]. tel:[phone] Family History Family Member Type Diagnosis Age At Onset No Information Payers Payer name Insurance type Covered republican ID Authoriza tion(s) [place] [id number] Social History Type Description Quantity Date Captured [...]
--- OUTSIDE RECORDS SUMMARY | 2025-02-24 08:35 | XMS_ITS | Clinical Summary ---
Author Organization [facility] Patterson Address [address] [place] [address] Care Team Providers Care Vice President Of Communications Name Role Phone Ty Reynolds MD Primary Care Provider [phone] Allergies No known active allergies Medications calcium [...] of water, stay upright 30 min Active atorvastatin (LIPITOR) 40 mg tablet Take 1 Tablet by mouth daily. 5 Active aspirin (ECOTRIN EC) 81 mg Tablet, Delayed Release (E.C.) Take 81 mg by mouth daily. Active gabapentin (NEURONTIN) 300 mg capsule Take 1 Capsule (300 mg) by mouth 2 times daily. 60 Capsule 5 Active lidocaine-priloc love (EMLA) 2.5-2.5 % CreamIndications :Malignant neoplasm of colon, unspecified part of colon (CMS/HCC) Apply a quarter size amount to port site 30 minutes prior to access. 30 Gram 1 5 Active ondansetron (ZOFRAN ODT) 8 mg Tablet, Rapid DissolveIndicati ons:Malignant neoplasm of colon, unspecified part of colon (CMS/HCC) Dissolve 1 tablet on top of tongue then swallow with saliva every 8 hours as needed for nausea or vomiting 30 Tablet 1 5 Active lidocaine-priloc love (EMLA) 2.5-2.5 % CreamIndications :Malignant neoplasm of colon, unspecified part of colon (CMS/HCC) Apply a quarter size amount to port site 30 minutes prior to access. 30 Gram 1 4 02/19/20 25 Discontinu ed(Reorder ) ondansetron (ZOFRAN ODT) 8 mg Tablet, Rapid DissolveIndicati ons:Malignant neoplasm of colon, unspecified part of colon (CMS/HCC) Dissolve 1 tablet on top of tongue then swallow with saliva every 8 hours as needed for nausea or vomiting 30 Tablet 1 4 02/19/20 25 Discontinu ed(Reorder ) Active Problems No known active problems Encounters Date Type Department Care Team Description 02/18/2025 Refill [facility] - [place] [address] Mir Andrade MD Malignant neoplasm of colon, unspecified part of colon ([facility]/HCC) 02/17/2025 Orders Only [facility] [address] Mir Andrade MD Malignant neoplasm of colon, unspecified part of colon (CMS/HCC) 02/06/2025 External Device Data STL ABSTRACTION Provider, Abstract 02/05/2025 External Device Data STL ABSTRACTION Provider, Abstract 02/04/2025 External Device Data STL ABSTRACTION Provider, Abstract 02/03/2025 Orders Only [facility] - [place] [address] [place] [phone] Mir Andrade MD Malignant neoplasm of colon, unspecified part of colon ([facility]/HCC) 01/28/2025 Orders Only [facility] - [place] [address] [place] [id number] Mir Andrade MD 01/27/2025 2:30 PM CDT Office Visit [facility] - [place] [address] [place] [phone] Mir Andrade MD Malignant neoplasm of colon, unspecified part of colon (CMS/HCC) (Primary Dx) 01/21/2025 External Device Data STL ABSTRACTION Provider, Abstract 01/20/2025 Orders Only [facility] - [place] [address] [place] [phone] Mir Andrade MD Malignant neoplasm of colon, unspecified part of colon (CMS/HCC) 01/14/2025 Orders Only [facility] - [place] [address] [place] [phone] Mir Andrade MD 01/13/2025 Orders Only [facility] - [place] [address] [place] [phone] Mir Andrade MD 01/06/2025 Orders Only [facility] - [place] [address] [place] [phone] Mir Andrade MD Malignant neoplasm of colon, unspecified part of colon (CMS/HCC) 12/30/2024 9:00 AM CDT Office Visit [facility] - [place] [address] [place] [phone] Mir Andrade MD Malignant neoplasm of colon, unspecified part of colon (CMS/HCC) (Primary Dx) 12/30/2024 Orders Only [facility] - [place] [address] [place] [address] Mir Andrade MD 12/23/2024 Refill [facility] - [place] [address] [place] [phone] Mir Andrade MD 12/23/2024 Orders Only [facility] - [place] [address] [place] [address] Mir Andrade MD Malignant neoplasm of colon, unspecified part of colon (CMS/HCC) 12/17/2024 Orders Only [facility] - [place] [address] [place] [address] Mir Andrade MD 12/16/2024 9:45 AM CDT Office Visit [facility] - [place] [address] [place] [address] Mir Andrade MD Malignant neoplasm of colon, unspecified part of colon (CMS/HCC) (Primary Dx) 12/09/2024 Orders Only [facility] - [place] [address] [place] [address] Mir Andrade MD Malignant neoplasm of colon, unspecified part of colon (CMS/HCC) 12/04/2024 Orders Only [facility] - [place] [address] [place] [address] Mir Andrade MD 12/02/2024 9:15 AM CDT Office Visit [facility] - [place] [address] [place] [phone] Mir Andrade MD Malignant neoplasm of colon, unspecified part of colon (CMS/HCC) (Primary Dx) 11/25/2024 Orders Only [facility] - [place] [address] [place] [address] Mir Andrade MD Malignant neoplasm of colon, [...] Sign Reading Time Taken Comments Blood Pressure 128/78 01/27/2025 1:57 PM CDT Pulse 87 01/27/2025 1:57 PM CDT Temperature 36.6 C (97.9 F) 01/27/2025 1:57 PM CDT Respiratory Rate 15 01/27/2025 1:57 PM CDT Oxygen Saturation 96% 01/27/2025 1:57 PM CDT Inhaled Oxygen Concentration - - Weight 45.8 kg (101 lb) 01/27/2025 1:57 PM CDT Height 152.4 cm (5') 07/17/2024 3:10 PM CDT Body Mass Index 19.73 07/17/2024 3:10 PM CDT Plan of Treatment Upcoming Encounters Date Type Department Care Team (Late st Contact Info) Description 03/03/2025 9:15 AM CDT Office Visit [facility] - [place] [address] [facility] [address] [place] [address] Mir Andrade MD [address] [facility] [address] [place] [address] Health Maintenance Due Date Last Done Comments DTAP/TDAP/TD VACCINES (1 - Tdap) 1964 PNEUMOCOCCAL VACCINE 50+ YEARS (1 of 1 - PCV) 04/01/19 95 ZOSTER VACCINE (1 of 2) 1995 OSTEOPOROSIS SCREENING 2010 RSV VACCINE (60+ or ) (1 - 1-dose 75+ series) 2020 INFLUENZA VACCINE (#1) 2024 Procedures Procedure Name Priority Date/Time Associated Diagnosis Comments COMPREHENSIVE METABOLIC PANEL Routine 01/27/2025 4:11 PM CDT BASIC METABOLIC PANEL Routine 01/27/2025 1:11 PM CDT CBC WITH AUTODIFFERENTIAL Routine 2024 1:10 PM CDT BASIC METABOLIC PANEL Routine 01/13/2025 3:13 PM CDT COMPREHENSIVE METABOLIC PANEL Routine 01/13/2025 11:38 AM CDT COMPREHENSIVE METABOLIC PANEL Routine 12/30/2024 3:29 PM CDT COMPREHENSIVE METABOLIC PANEL Routine 12/16/2024 12:02 PM CDT BASIC METABOLIC PANEL Routine 12/16/2024 11:32 AM CDT CEA Routine 12/02/2024 2:58 PM CDT BASIC METABOLIC PANEL Routine 12/02/2024 2:29 PM CDT from Last 3 Months Results * COMPREHENSIVE METABOLIC PANEL (01/27/2025 4:11 PM CDT) Only the most recent of4 resultswithin the time period is included. Blood us Mir Andrade MD CHEMISTRY ORDERABLES Final Resu lt * BASIC METABOLIC PANEL (01/27/2025 1:11 PM CDT) Only the most recent of4 resultswithin the time period is included. Blood us Mir Andrade MD CHEMISTRY ORDERABLES Final Resu lt * CBC WITH AUTODIFFERENTIAL (01/27/2025 1:10 PM CDT) Blood us Mir Andrade MD HEMATOLOGY ORDERABLES Final Res ult * CEA (12/02/2024 2:58 PM CDT) Blood us Mir Andrade MD CHEMISTRY ORDERABLES Final Resu lt from Last 3 Months Insurance [employer] PPO MCR Care Teams Vice President Of Communications Relationship Specialty Start Date End Date Ty Reynolds MD PCP - General Family Practice 08/13/24
--- OUTSIDE RECORDS SUMMARY | 2025-02-24 08:35 | XMS_ITS | Referral Summary ---
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
--- OUTSIDE RECORDS SUMMARY | 2025-02-24 08:35 | XMS_ITS | Clinical Summary ---
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
== END 2025-02-24 08:18 | disposition home or self-care (01) ==
PROVIDERS: PCP Family Medicine Adolescent Medicine; Visit Provider Internal Medicine Hematology & Oncology
DX: K76.9 Liver disease, unspecified (principal); R91.8 Other nonspecific abnormal finding of lung field; K59.00 Constipation, unspecified; C18.9 Malignant neoplasm of colon, unspecified
CPT/HCPCS: 71260; 74177; Q9967

== ENCOUNTER 2025-04-11 09:57 | Outpatient (CLI) | payer MEDICARE, SELFPAY ==
--- NOTE | ~2025-04-11 | MR_ITS ---
EXAMINATION: MR abdomen wo/w con DATE: 04/11/2025 11:26 INDICATION: Liver lesion TECHNIQUE: Magnetic resonance imaging (MRI) of the abdomen was performed without and with 9 mL Multih ance intravenous contrast. Sequences included coronal T2-weighted SS-FSE, coronal and axial FS 2D-FI ESTA, axial STIR FSE, axial T2-weighted SS-FSE, axial T2-weighted FS SS-FSE, axial diffusion-weighted SE, axial dual-echo T1-weighted FSPGR, and axial and coronal T1-weighted LAVA. Postcontrast axial T1 -weighted LAVA images were obtained in a time course. Postcontrast coronal T1-weighted LAVA images we re obtained. COMPARISON: CT dated 03/06/2025 FINDINGS: Heart size is normal. No pericardial or pleural effusion. 1.2 cm T2 hyperintense nonenhancing cyst in the right hepatic lobe near the confluence of the middle hepatic vein and superior vena cava which c orresponds to the hypodense lesion of concern on prior CT. There is additional 5 mm subcapsular hepat ic cyst at the posterior medial aspect of the dome of the liver. Spleen, pancreas, bilateral adrenal glands are normal. Bilateral subcentimeter T2 hyperintense nonenhancing renal cysts. Gas scattered th roughout the colon. No bowel obstruction. No pathologically enlarged abdominal lymphadenopathy. Mild thoracolumbar levocurvature and upper lumbar dextrocurvature with moderate to severe spondylosis. IMPRESSION: 1. A few hepatic and bilateral renal cysts which include the hepatic lesion of concern. Reviewed, dictated and finalized at location A.
--- OUTSIDE RECORDS SUMMARY | 2025-04-11 10:02 | XMS_ITS | Continuity of Care Document ---
Author Organization [facility] Address [address] [place] [address] Phone Care Team Providers Care Bottom Hoop Driver Name Role Phone Ramires OD, Emeka Unavailable Unavailable Procedures Procedure Date Eye Exam & Treatment Refraction Eye Exam & Treatment Refraction Eye Exam & Treatment Refraction Advance Directives Directive Yes / No Effective Date File Name No Information Encounters Encounter Description Practice Location Reason(s) For Visit Diagnoses Date Provider Providers Copied on Encounter [facility], [address] [place] [address] [address], [place], [place], [id number], tel:[phone] [facility] No Information Sep-3 0-201 0 Ramires OD Emeka. [address], [place], [place], [facility], . tel:[phone] [facility], [address] [place] [address] [address], [place], [place], [id number], tel:[phone] [facility] No Information Sep-0 3-200 9 Ramires OD Emeka. [address], [place], [place], [facility], . tel:[phone] [facility], [address] [place] [address] [address], [place], [place], [id number], tel:[phone] [facility] No Information January-2 2-200 8 Ramires OD Emeka. [address], [place], [address], [place]. tel:[phone] Family History Family Member Type Diagnosis Age At Onset No Information Payers Payer name Insurance type Covered libertarian ID Authoriza tion(s) [place] [id number] Social History Type Description Quantity Date Captured [...]
--- OUTSIDE RECORDS SUMMARY | 2025-04-11 10:02 | XMS_ITS | Encounter Summary ---
Author Organization [facility] Address [address] [place] [address] Care Team Providers Care Scale Mechanic Name Role Phone Ty Reynolds MD Primary Care Provider [phone] Encounter Details Date Type Department Care Team ([facility] Contact Info) Description 04/10/2025 Abstract [facility] [address] [address] [place] [address] Mir Andrade MD [facility] [employer] [address] [place] [address] Social History Tobacco Use Types Packs/Day [...] Department Care Team (Late Contact Info) Description 05/05/2025 9:00 AM CDT Office Visit [facility] [address] [address] [place] [address] Mir Andrade MD [address] [place] [address] documented as of this encounter Visit Diagnoses Not on filedocumented in this encounter Care Teams Scale Mechanic Relationship Specialty Start Date End Date Ty Reynolds MD PCP - General Family Practice 08/13/24 documented as of this encounter
--- OUTSIDE RECORDS SUMMARY | 2025-04-11 10:02 | XMS_ITS | Clinical Summary ---
Author Organization [facility] Milagro Patterson Address [address] [place] [address] Care Team Providers Care Heat Treat Inspector Name Role Phone Ty Reynolds MD Primary Care Provider [phone]- [phone] Allergies No known active allergies Medications calcium [...] or vomiting 30 Tablet 1 5 Active Active Problems No known active problems Encounters Date Type Department Care Team Description 04/10/2025 Abstract [facility] Oncology and Hematology [facility] [address] [place] [phone] Mir Andrade MD 04/02/2025 External Device Data STL ABSTRACTION Provider, Abstract 04/02/2025 External Device Data STL ABSTRACTION Provider, Abstract 04/02/2025 External Device Data STL ABSTRACTION Provider, Abstract 2025 External Device Data STL ABSTRACTION Provider, Abstract 03/28/2025 Abstract [facility] Oncology and Hematology [facility] [address] [place] [phone] Mir Andrade MD 03/24/2025 9:15 AM CDT Office Visit [facility] Oncology [facility] Hematology [facility] [address] [place] [phone] Mir Andrade MD Malignant neoplasm of colon, unspecified part of colon (CMS/HCC) (Primary Dx) 03/17/2025 Orders Only [facility] Oncology and Hematology [address] [address] [place] [phone] Mir Andrade MD Malignant neoplasm of colon, unspecified part of colon (CMS/HCC) 03/07/2025 Orders Only [facility] Oncology [facility] Hematology [facility] [address] [place] [address] Mir Andrade MD Liver lesion (Primary Dx) 03/05/2025 External Device Data STL ABSTRACTION Provider, Abstract 03/04/2025 External Device Data STL ABSTRACTION Provider, Abstract 03/03/2025 9:15 AM CDT Office Visit [facility] Oncology [facility] Hematology [facility] [address] [place] [phone] Mir Andrade MD Malignant neoplasm of colon, unspecified part of colon (CMS/HCC) 03/03/2025 Orders Only [facility] Oncology and Hematology [facility] [address] [place] [phone] Mir Andrade MD 02/24/2025 Orders Only [facility] Oncology and Hematology - [place] [address] [place] [phone] Mir Andrade MD 02/18/2025 Refill [facility] Oncology and Hematology - Oni [address] [place] [phone] Mir Andrade MD Malignant neoplasm of colon, unspecified part of colon (CMS/HCC) 02/17/2025 Orders Only [facility] Oncology and Hematology - On[place] [address] [place] [phone] Mir Andrade MD Malignant neoplasm of colon, unspecified part of colon (CMS/HCC) 02/06/2025 External Device Data STL ABSTRACTION Provider, Abstract 02/05/2025 External Device Data STL ABSTRACTION Provider, Abstract 02/04/2025 External Device Data STL ABSTRACTION Provider, Abstract 02/03/2025 Orders Only [facility] Oncology and Hematology - On[place] [address] [place] [phone] Mir Andrade MD Malignant neoplasm of colon, unspecified part of colon (CMS/HCC) 01/28/2025 Orders Only [facility] Oncology and Hematology - Oni [address] [place] [address] Mir Andrade MD 01/27/2025 2:30 PM CDT Office Visit [facility] Oncology and Hematology [facility] [address] [place] [phone] Mir Andrade MD Malignant neoplasm of colon, unspecified part of colon (CMS/HCC) (Primary Dx) 01/21/2025 External Device Data STL ABSTRACTION Provider, Abstract 01/20/2025 Orders Only [facility] Oncology and Hematology - Oni [address] [place] [phone] Mir Andrade MD Malignant neoplasm of colon, unspecified part of colon (CMS/HCC) 01/14/2025 Orders Only [facility] Oncology and Hematology - Oni [address] [place] [address] Mir Andrade MD 01/13/2025 Orders Only [facility] Hematology - [facility] [address] [facility] [address] [place] [address] Mir Andrade MD from Last [...] Sign Reading Time Taken Comments Blood Pressure 135/75 03/24/2025 9:07 AM CDT Pulse 72 03/24/2025 9:07 AM CDT Temperature 36.4 C (97.6 F) 03/24/2025 9:07 AM CDT Respiratory Rate 15 03/24/2025 9:07 AM CDT Oxygen Saturation 97% 03/24/2025 9:07 AM CDT Inhaled Oxygen Concentration - - Weight 45.9 kg (101 lb 3.2 oz) 03/24/2025 9:07 A M CDT Height 152.4 cm (5') 07/17/2024 3:10 PM CDT Body Mass Index 19.76 07/17/2024 3:10 PM CDT Plan of Treatment Upcoming Encounters Date Type Department Care Team (Late st Contact Info) Description 05/05/2025 9:00 AM CDT Office Visit [facility] Oncology and Hematology - Oni [address] [place] [address] Mir Andrade MD [address] [place] [address] Health Maintenance Due Date Last Done Comments DTAP/TDAP/TD VACCINES (1 - Tdap) 1964 PNEUMOCOCCAL VACCINE 50+ YEARS (1 of 1 - PCV) 04/01/19 95 ZOSTER VACCINE (1 of 2) 1995 OSTEOPOROSIS SCREENING 2010 RSV VACCINE (60+ or ) (1 - 1-dose 75+ series) 2020 Medicare [place] Prev entative Visit/Annual Wellness Visit 09/18/2024 INFLUENZA VACCINE (#1) 2025 Procedures Procedure Name Priority Date/Time Associated Diagnosis Comments COMPREHENSIVE METABOLIC PANEL Routine 03/03/2025 4:15 PM CDT BASIC METABOLIC PANEL Routine 03/03/2025 4:[address] CHEST ABDOMEN PELVIS W CONT Routine 02/24/2025 10:32 AM CDT COMPREHENSIVE METABOLIC PANEL Routine 01/27/2025 4:11 PM CDT BASIC METABOLIC PANEL Routine 01/27/2025 1:11 PM CDT CBC WITH AUTODIFFERENTIAL Routine 2024 1:10 PM CDT BASIC METABOLIC PANEL Routine 01/13/2025 3:13 PM CDT COMPREHENSIVE METABOLIC PANEL Routine 01/13/2025 11:38 AM CDT from Last 3 Months Results * COMPREHENSIVE METABOLIC PANEL (03/03/2025 4:15 PM CDT) Only the most recent of3 resultswithin the time period is included. Blood us Mir Andrade MD CHEMISTRY ORDERABLES Final Resu lt * BASIC METABOLIC PANEL (03/03/2025 4:14 PM CDT) Only the most recent of3 resultswithin the time period is included. Blood us Mir Andrade MD CHEMISTRY ORDERABLES Final Resu lt * CT CHEST ABDOMEN PELVIS W CONT (02/24/2025 10:32 AM CDT) Anatomical Region Laterality Modality Chest Computed Tomogra phy us Mir Andrade MD CT ORDERABLES Final Result * CBC WITH AUTODIFFERENTIAL (01/27/2025 1:10 PM CDT) Blood Mir Andrade MD HEMATOLOGY ORDERABLES Final Res ult from Last 3 Months Insurance AET PPO [facility] AETNA O MCR Care Teams Heat Treat Inspector Relationship Specialty Start Date End Date Ty Reynolds MD PCP - General Family Practice 08/13/24
--- OUTSIDE RECORDS SUMMARY | 2025-04-11 10:02 | XMS_ITS | Clinical Summary ---
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 [employer] Gender Identity Not on file Sexual Orientation Not on file Plan of Treatment Health Maintenance Due Date Last Done Comments Depression Screening 1945 Fall Risk Assessment 1945 Osteoporosis Screening-Bone Density Scan 1945 Hepatitis B Screening 1963 Pneumococcal vaccine 65+ (1 of 1 - PCV) 1995 Zoster Vaccine (1 of 2) 1995 DTaP/Tdap/Td Vaccine (1 - Tdap) 10/04/2006 7 Well Visit 65+ 2010 Covid-19 Vaccine (5 - 2023-2 5 season) 2024 02/12/2022, 06/29/2021, 12/21/2020, Additional history exists Influenza Vaccine (#1) 2025 2, 06/17/2020, 10/06/2017, Additional history exists Insurance [facility] MEDICARE ADVANTAGE [facility] MEDICARE Address: [address] [address] Care Teams Clinical Nurse Reviewer Relationship Specialty Start Date End Date Ty Reynolds MD [address] [place] [address] PCP - General Family Medicine 04/22/22
--- OUTSIDE RECORDS SUMMARY | 2025-04-11 10:02 | XMS_ITS | Referral Summary ---
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
== END 2025-04-11 09:58 | disposition home or self-care (01) ==
PROVIDERS: PCP Family Medicine Adolescent Medicine; Visit Provider Internal Medicine Hematology & Oncology
DX: K76.89 Other specified diseases of liver (principal)
CPT/HCPCS: 74183; A9577

== ENCOUNTER 2025-06-27 14:25 | Outpatient (CLI) | payer MEDICARE, SELFPAY ==
--- NOTE | ~2025-06-27 | MR_ITS ---
EXAMINATION: MR abdomen wo/w con DATE: 06/27/2025 15:23 INDICATION: Liver mass. TECHNIQUE: Magnetic resonance imaging (MRI) of the abdomen was performed without and with 9 mL MultiHance intravenous contrast. COMPARISON: Abdomen MRI 04/11/2025, CT 07/01/2025 FINDINGS: There are cysts in the liver measuring up to 12 mm. The gallbladder is absent. The spleen, pancreas, and adrenal glands are normal. There are cysts in the kidneys measuring up to 5 mm on the left. There are no dilated loops of bowel. There are no pathologically enlarged lymph nodes. There is no free in traperitoneal fluid. IMPRESSION: 1. Benign cysts in the liver. Reviewed, dictated and finalized at location E.
== END 2025-06-27 14:26 | disposition home or self-care (01) ==
PROVIDERS: PCP Family Medicine Adolescent Medicine
DX: K76.89 Other specified diseases of liver (principal)
CPT/HCPCS: 74183; A9577

== ENCOUNTER 2025-07-01 07:46 | Outpatient (CLI) | payer MEDICARE, SELFPAY ==
--- OUTSIDE RECORDS SUMMARY | 2010-06-17 04:15 | XMS_ITS | Continuity of Care Document ---
Author Organization [facility] Address [address] [place] [address] Phone Care Team Providers Care Pharmacy Technician Name Role Phone Ramires OD, Emeka Unavailable Unavailable Procedures Procedure Date Eye Exam & Treatment Refraction Eye Exam & Treatment Refraction Eye Exam & Treatment Refraction Advance Directives Directive Yes / No Effective Date File Name No Information Encounters Encounter Description Practice Location Reason(s) For Visit Diagnoses Date Provider Providers Copied on Encounter [facility], [address] [place] [address] [address], [place], [place], [id number], tel:[phone] [facility] No Information Sep-3 0-201 0 Ramires OD Emeka. [address], [place], [place], [facility], . tel:[phone] [facility], [address] [place] [address] [address], [place], [place], [id number], tel:[phone] [facility] No Information Sep-0 3-200 9 Ramires OD Emeka. [address], [place], [place], [facility], . tel:[phone] [facility], [address] [place] [address] [address], [place], [place], [id number], tel:[phone] [facility] No Information January-2 2-200 8 Ramires OD Emeka. [address], [address], [place], [address], [place]. tel:[phone] Family History Family Member Type Diagnosis Age At Onset No Information Payers Payer name Insurance type Covered libertarian ID Authoriza tion(s) [place] [id number] Social History Type Description Quantity Date Captured [...]
--- NOTE | ~2025-07-01 | CT_ITS ---
EXAMINATION: CT chest abdomen pelvis w con DATE: 07/01/2025 08:15 INDICATION: Malignant neoplasm of colon. TECHNIQUE: Computed tomography (CT) of the chest, abdomen, and pelvis was performed with 100 mL Omnipaque 350 intravenous contrast. Automated exposure control and iterative reconstruction technique were employed. The dose-length product was 233.89 mGy-cm. COMPARISON: CT 02/24/2025, 06/28/2024 FINDINGS: CHEST CT: There is mild scarring at the lung apices. There is mild atelectasis bilaterally. There is a 4 mm nodule in right lower lobe, stable from 06/28/2024. There is a 4 mm nodule in left lower lobe, stable from 06/28/2024. No pleural effusion. The heart size is normal. There is a trace pericardial effusion. There is a right internal jugular port with tip in superior vena cava. There is severe thoracic spondylosis. There is mild chronic anterior wedging of multiple vertebral bodies. ABDOMEN/PELVIS CT: There are cysts in the liver measuring up to 13 mm. The gallbladder is absent. The spleen, pancreas, and adrenal glands are normal. There are cysts in the kidneys measuring up to 5 mm. There are changes of right hemicolectomy. There are no dilated loops of bowel. There are no pathologically enlarged lymph nodes. There is no free intraperitoneal fluid. There is severe lumbar spondylosis. IMPRESSION: 1. Chronic small pulmonary nodules, likely benign. No specific evidence of metastatic disease. Reviewed, dictated and finalized at location E. IMPRESSION: 1. Chronic small pulmonary nodules, likely benign. No specific evidence of meta static disease.
--- OUTSIDE RECORDS SUMMARY | 2025-07-01 07:51 | XMS_ITS | Clinical Summary ---
Author Organization [facility] Milagro Patterson Address [address] [place] [address] Care Team Providers Care Reference Services Head Name Role Phone Ty Reynolds MD Primary Care Provider [phone]- [phone] Allergies No known active allergies Medications calcium [...] Encounters Date Type Department Care Team Description 06/24/2025 Telephone [facility] Oncology [place] [address] [place] [address] Maria D Mclean MD Referral (Authorization For MRI) 06/23/2025 Telephone [facility]cology [place] [address] [place] [address] Maria D Mclean MD MRI of the abdomen 06/23/2025 Orders Only [facility] Oncology and Hematology - [place] [address] [place] [address] iMr Andrade MD Malignant neoplasm of colon, unspecified part of colon (CMS/HCC) 06/18/2025 Telephone [facility] Surgical Oncology [place] [address] [place] [address] Maria D Mclean MD images, labs and consult; labs and scans before consult 06/17/2025 Orders Only [facility] Oncology and Hematology - [place] [address] [place] [address] Mir Andrade MD 06/16/2025 9:15 AM CDT Office Visit [facility] Oncology and Hematology - [place] [address] [place] [address] Mir Andrade MD Malignant neoplasm of colon, unspecified part of colon (CMS/HCC) (Primary Dx) 06/09/2025 Orders Only [facility] Oncology and Hematology - [place] [address] [place] [address] Mir Andrade MD Malignant neoplasm of colon, unspecified part of colon (CMS/HCC) 06/04/2025 Telephone [facility] [place] [address] [place] [address] Maria D Mclean MD consult 06/03/2025 Orders Only [facility] Oncology and Hematology - [place] [address] [place] [address] Mir Andrade MD Malignant neoplasm of colon, unspecified part of colon (CMS/HCC) (Primary Dx); Liver lesion 05/26/2025 Orders Only [facility] Oncology and Hematology - [place] [address] [place] [address] Mir Andrade MD Malignant neoplasm of colon, unspecified part of colon (CMS/HCC) 05/20/2025 External Device Data STL ABSTRACTION Provider, Abstract 05/12/2025 Orders Only [facility] Oncology and Hematology [address] [place] [id number] Mir Andrade MD Malignant neoplasm of colon, unspecified part of colon (CMS/HCC) 05/09/2025 7:44 AM CDT - 05/09/2025 12:26 PM CDT Hospital Encounter [place] [address] [place] [address] Mir Andrade MD [address], [facility] Liver lesion Discharge Disposition: Home or Self Care 05/06/2025 External Device Data STL ABSTRACTION Provider, Abstract 05/05/2025 9:00 AM CDT Office Visit [facility] Oncology and Hematology [facility] [address] [place] [address] Mir Andrade MD Malignant neoplasm of colon, unspecified part of colon (CMS/HCC) (Primary Dx) 05/05/2025 Orders Only [facility] Oncology and Hematology - [place] [address] [place] [address] Mir Andrade MD 04/28/2025 Orders Only [facility] Oncology and Hematology - [place] [address] [place] [address] Mir Andrade MD Malignant neoplasm of colon, unspecified part of colon (CMS/HCC) 04/24/2025 10:05 AM CDT - 04/24/2025 11:59 PM CDT Hospital Encounter [facility] [address] [address] Mir Andrade MD Discharge Disposition: Home or Self Care 04/22/2025 Orders Only [facility] Oncology and Hematology - [place] [address] [place] [address] Mir Andrade MD Liver lesion (Primary Dx) 04/21/2025 Orders Only [facility] Oncology and Hematology - [place] [address] [place] [address] Mir Andrade MD 04/16/2025 Orders Only [facility] Oncology and Hematology - [address] [place] [address] Mir Andrade MD 04/14/2025 Orders Only [facility] Oncology and Hematology - [address] [place] [address] Mir Andrade MD Malignant neoplasm of colon, unspecified part of colon (CMS/HCC) 04/10/2025 Abstract [facility] Oncology and Hematology [facility] [address] [place] [address] Mir Andrade MD 04/02/2025 External Device Data STL ABSTRACTION Provider, Abstract 04/02/2025 External Device Data STL ABSTRACTION Provider, Abstract 04/02/2025 External Device Data STL ABSTRACTION Provider, Abstract 2025 External Device Data STL ABSTRACTION Provider, Abstract from Last 3 Months Family History Medical [...] Not Answered Alcohol Use Standard Drinks/Week Comments Not Currently 0 (1 standard drink = 0.6 oz pur e alcohol) Occasional Comments Unknown Sex and Gender Information Value Date Recorded Sex Assigned at Not on file Legal Sex Female 10:54 AM CDT Gender Identity Not on file Sexual Orientation Not on file Last Filed Vital Signs Vital Sign Reading Time Taken Comments Blood Pressure 137/56 06/16/2025 9:13 AM CDT Pulse 73 06/16/2025 9:13 AM CDT Temperature 36.5 C (97.7 F) 06/16/2025 9:13 AM CDT Respiratory Rate 15 06/16/2025 9:13 AM CDT Oxygen Saturation 96% 06/16/2025 9:13 AM CDT Inhaled Oxygen Concentration - - Weight 47 kg (103 lb 9.6 oz) 06/16/2025 9:13 AM CDT Height 152.4 cm (5') 05/09/2025 8:12 AM CDT Body Mass Index 20.23 05/09/2025 8:12 AM CDT Plan of Treatment Upcoming Encounters Date Type Department Care Team (Late st Contact Info) Description 07/04/2025 12:00 PM CDT Video Visit [facility] Surgical Oncology [place] [address] [place] [address] Maria D Mclean MD [address] [place] [address] 07/28/2025 8:45 AM MANAGER SIX SIGMA Office Visit [facility] Oncology and Hematology - [place] [address] [facility] [address] [place] [address] Mir Andrade MD [address] [facility] [address] [place] [address] Health Maintenance Due Date Last Done Comments DTAP/TDAP/TD VACCINES (1 - Tdap) 1964 PNEUMOCOCCAL VACCINE 50+ YEARS (1 of 1 - PCV) 04/01/19 95 ZOSTER VACCINE (1 of 2) 1995 OSTEOPOROSIS SCREENING 2010 RSV VACCINE (60+ or ) (1 - 1-dose 75+ series) 2020 INFLUENZA VACCINE (#1) 2025 Procedures Procedure Name Priority Date/Time Associated Diagnosis Comments COMPREHENSIVE METABOLIC PANEL Routine 06/16/2025 1:28 PM CDT BASIC METABOLIC PANEL Routine 05/26/2025 1:45 PM CDT COMPREHENSIVE METABOLIC PANEL Routine 05/26/2025 1:[address] BIOPSY LIVER Routine 05/09/2025 10:03 AM CDT Liver lesion PATHOLOGY Pathology 05/09/2025 9:58 AM CDT PROTIME-INR Stat 05/09/2025 8:08 AM CDT CBC WITH DIFFERENTIAL Pre-Procedure 05/09/2025 8:08 AM CDT BASIC METABOLIC PANEL Routine 05/05/2025 2:20 PM CDT COMPREHENSIVE METABOLIC PANEL Routine 05/05/2025 2:[address] ABDOMEN PELVIS W WO CONTRAST Routine 04/24/2025 11:00 AM CDT Liver lesion POC CREATININE Routine 04/24/2025 10:29 AM CDT BASIC METABOLIC PANEL Routine 04/15/2025 2:42 PM CDT COMPREHENSIVE METABOLIC PANEL Routine 04/15/2025 12:49 PM CDT CBC WITH AUTODIFFERENTIAL Routine 04/15/2025 12:41 PM CDT MRI ABDOMEN Routine 04/11/2025 9:55 AM CDT from Last 3 Months Results * COMPREHENSIVE METABOLIC PANEL (06/16/2025 1:28 PM CDT) Only the most recent of4 resultswithin the time period is included. Blood us Mir Andrade MD CHEMISTRY ORDERABLES Final Resu lt * BASIC METABOLIC PANEL (05/26/2025 1:45 PM CDT) Only the most recent of3 resultswithin the time period is included. Blood us Mir Andrade MD CHEMISTRY ORDERABLES Final Resu lt * CT BIOPSY LIVER (05/09/2025 10:03 AM CDT) Anatomical Region Laterality Modality Abdomen Computed Tomogra phy 05/09/2025 9:38 AM CDT Impressions 05/09/2025 4:16 PM CDT IMPRESSION: Successful core needle biopsy of liver using CT guidance. DICTATION LOCATION: Location 1 - [facility] 05/09/2025 4:16 PM CDT EXAMINATION: CORE NEEDLE BIOPSY OF LIVER USING CT GUIDANCE DATE: 05/09/2025 10:03 AM HISTORY: 80 years-old Female with breast cancer and liver lesion. ANESTHESIA: The procedure was performed with local anesthesia. PHYSICIAN(S): Dr. Camron Hamilton MD TECHNIQUE: The risks, benefits and alternatives were discussed and informed consent was obtained. Prior to beginning the procedure, [place] Protocol was performed to confirm the patient's identity and the planned procedure. Sterile barriers including hand hygiene, sterile gloves, and sterile drape were used. 2% chlorhexidine was used for cutaneous antisepsis. The patient was placed in the supine position. The biopsy site was selected and marked on the skin. The skin was infiltrated with 1% lidocaine. An 18-gauge biopsy device was used. Under intermittent CT guidance, an outer coaxial needle was advanced adjacent to the target in the liver and 2 cm core biopsies obtained and placed in formalin. The specimens were sent to pathology for histologic evaluation. Biopsy tract occlusion was performed with Gelfoam slurry. A sterile dressing was applied. ESTIMATED BLOOD LOSS: 10 cc. CONDITION: Stable. DISCHARGED TO: Recovery and then to home. FINDINGS: Initial images show liver lesion in the right liver. Subsequent images show biopsy needle through the intended target. Post biopsy images show no postprocedure complication. The patient tolerated the procedure without immediate complications. Procedure Note Camron Hamilton MD - 05/09/2025 EXAMINATION: CORE NEEDLE BIOPSY OF LIVER USING CT GUIDANCE DATE: 05/09/2025 10:03 AM HISTORY: 80 years-old Female with breast cancer and liver lesion. ANESTHESIA: The procedure was performed with local anesthesia. PHYSICIAN(S): Dr. Camron Hamilton MD TECHNIQUE: The risks, benefits and alternatives were discussed and informed consent was obtained. Prior to beginning the procedure, [place] Protocol was performed to confirm the patient's identity and the planned procedure. Sterile barriers including hand hygiene, sterile gloves, and sterile drape were used. 2% chlorhexidine was used for cutaneous antisepsis. The patient was placed in the supine position. The biopsy site was selected and marked on the skin. The skin was infiltrated with 1% lidocaine. An 18-gauge biopsy device was used. Under intermittent CT guidance, an outer coaxial needle was advanced adjacent to the target in the liver and 2 cm core biopsies obtained and placed in formalin. The specimens were sent to pathology for histologic evaluation. Biopsy tract occlusion was performed with Gelfoam slurry. A sterile dressing was applied. ESTIMATED BLOOD LOSS: 10 cc. CONDITION: Stable. DISCHARGED TO: Recovery and then to home. FINDINGS: Initial images show liver lesion in the right liver. Subsequent images show biopsy needle through the intended target. Post biopsy images show no postprocedure complication. The patient tolerated the procedure without immediate complications. IMPRESSION: Successful core needle biopsy of liver using CT guidance. DICTATION LOCATION: Location 1 - [facility] Mir Andrade MD CT ORDERABLES Final Result * PATHOLOGY (05/09/2025 9:58 AM CDT) CASE REPORT Surgical Pathology Report Case: [id number] Authorizing Provider: Camron Hamilton MD Collected: 05/09/2025 09:58 AM Ordering Location: [facility] Received: 05/09/2025 02:10 PM Brian Pathologist: Erica Barfield MD Specimen: Liver 9:36 AM CDT [facility] FINAL DIAGNOSIS Liver, lesion, CT-guided core biopsy: - 2 mm focus of acellular mucin with no viable tumor cells identified, history of colon adenocarcinoma, status post chemotherapy, see microscopic. 9:36 AM CDT [facility] at 0936 CDT GROSS DESCRIPTION Received in one container labeled Elba Sandoval and liver are 4 red-mir tissue cores measuring 1.4, 1.7, 1.2 and 1.3 cm in length and each measuring less than 0.1 cm in diameter. All are submitted in cassettes A1 and A2. [facility] 5 9:36 AM [facility] MICROSCOPIC DESCRIPTION The slides are labeled [id number] and Elba Sandoval. Sections of the liver biopsy reveal cores of liver parenchyma with 2 mm focus of extracellular mucin with no viable tumor cells at the edge of 1 core. No viable tumor cells are identified on routine H&E sections, CK7, CK20 or CDX2 immunohistochemical stains. This finding could represent treated metastatic carcinoma or the edge of not adequately sampled viable metastatic adenocarcinoma. Clinical correlation and correlation with the radiologic imaging is indicated. The reticulin stain (performed on both blocks A1 and A2) shows normal liver trabecula with no loss. 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 Note on use of immunohistochemistry reagents and in situ hybridization probes: These tests were developed and their performance characteristics determined by [facility], Department of Laboratory Medicine. It has not been cleared or approved by the U.S. Food and Drug Administration. The FDA has determined that such clearance or approval is not necessary. The test is used for clinical purposes. It should not be regarded as investigational or for research. This laboratory is certified to perform high complexity testing. Frozen section/operating room consultation, gross examination and dissection, and case sign out may have been performed in part or completely in the following laboratories: [facility], CLIA #[id number] [address] [place] [address] [facility], [place] #[id number] [address] [place] [address] [facility], CLIA #[id number] [address] [place] [address] This report was created with the Dragon voice-activated dictation system. Inherent to this system is the possibility of syntax, grammar, punctuation and other errors that could impact the interpretation of the report. If there are interpretative questions about aspects of this report, please contact the performing pathologist. 9:36 AM CDT [facility] - [facility] Tissue ENTIRE LIVER / Unknown Collection / Unknown 05/09/2025 9:58 AM CDT 05/09/2025 2:10 PM CDT Camron Hamilton MD PATHOLOGY/CYTOLOGY ORDERABLES Final Result [facility] CLIA# [id number] [address] [place] [address] * (ABNORMAL) CBC WITH DIFFERENTIAL (05/09/2025 8:08 AM CDT) WBC 4.1 4.0 - 9.8 K/uL 05/09/2025 8:22 AM T [facility] RBC 4.11 3.90 - 4.90 M/uL 05/09/2025 8:22 AM T [facility] HEMOGLOBIN 12.9 11.8 - 14.8 g/dL 05/09/2025 8:22 AM T [facility] HEMATOCRIT 39.4 35.5 - 44.0 % 05/09/2025 8:22 AM CDT [facility] - . [facility] MCV 95.9 82.0 - 99.0 fL 05/09/2025 8:22 AM CDT [facility] MCH 31.4 27.2 - 32.6 pg 05/09/2025 8:22 AM CDT [email or web address] - . [facility] MCHC 32.7 31.5 - 35.5 g/dL 05/09/2025 8:22 AM CDT [facility] RDW 14.4 11.5 - 14.5 % 05/09/2025 8:22 AM CDT [email or web address] - [facility] RDW-STDEV 49.9(H) 37.1 - 48.7 fL 05/09/2025 8:22 AM CDT [facility] - [facility] PLATELETS 192 140 - 350 K/uL 05/09/2025 8:22 AM [employer] [facility] - . [facility] MPV 10.8 9.3 - 12.4 fL 05/09/2025 8:22 AM [employer] [facility] - . [facility] NEUTROPHILS 58 % 05/09/2025 8:22 AM [employer] [facility] - . [facility] LYMPHOCYTES 34 % 05/09/2025 8:22 AM T [facility] - . [facility] MONOCYTES 5 % 05/09/2025 8:22 AM [employer] [facility] - [facility] EOSINOPHILS 2 % 05/09/2025 8:22 AM [facility] - [facility] BASOPHILS 1 % 05/09/2025 8:22 AM [facility]ORY SERVICES - . [facility] IMMATURE GRANULOCYTES 0 % 05/09/2025 8:22 AM [facility]ORY SERVICES - . [facility] NEUTROPHIL ABSOLUTE 2.39 1.90 - 7.00 K/uL 05/09/2025 8:22 AM T [facility]ORY SERVICES - . [facility] LYMPHOCYTE ABSOLUTE 1.40 0.70 - 4.50 K/uL 05/09/2025 8:22 AM [employer]ORY SERVICES - . [facility] MONOCYTE ABSOLUTE 0.20 0.10 - 1.30 K/uL 05/09/2025 8:22 AM [facility]ORY SERVICES - . [facility] EOSINOPHIL ABSOLUTE 0.07 0.00 - 0.70 K/uL 05/09/2025 8:22 AM [facility] - [facility] BASOPHILS ABSOLUTE 0.05 0.00 - 0.20 K/uL 05/09/2025 8:22 AM [facility] LABORATORY SERVICES - . [facility] IMMATURE GRANULOCYTES ABSOLUTE 0.01 0.00 - 0.03 K/uL 05/09/2025 8:22 AM [employer] SERVICES - . [facility] Blood Venipuncture / Unknown 05/09/2025 8:08 AM CDT 05/09/2025 8:14 AM CDT us Sussy Juani MENA HEMATOLOGY ORDERABLES Final Resu lt Performing Organization Address [facility] Co de Phone Number [facility] CLIA# [id number] [address] [place] [address] * (ABNORMAL) PROTIME-INR (05/09/2025 8:08 AM CDT) PROTIME 12.6(L) 12.7 - 15.1 Seconds 05/09/2025 8:31 AM CDT [facility] INR 0.9 0.9 - 1.1 05/09/2025 8:31 AM CDT [facility] Blood Venipuncture / Unknown 05/09/2025 8:08 AM CDT 05/09/2025 8:14 AM CDT Narrative [facility] - 05/09/2025 8:31 AM CDT INR Therapeutic Range: Adult: 2.0 - 3.0 for pulmonary embolism or prophylaxis against venous thrombosis or systemic embolization. 2.0 - 3.0 for patients with tissue heart valves. 2.5 - 3.5 for patients with mechanical heart valves or post [place]. Pediatric (12 years and under): 1.5 - 3.0 Although the target range in children is not well established, INR values of 1.5 - 3.0 are recommended for most patients. Higher values have been used in children with prosthetic cardiac valves and hereditary clotting disorders. [place] (<3 days) therapeutic ranges have not been established. Sussy Gloria MD HEMATOLOGY ORDERABLES Final Resu lt Performing Organization Address [facility] Co de Phone Number [facility] [id number] [address] [place] [address] * CT ABDOMEN PELVIS W WO CONTRAST (04/24/2025 11:00 AM CDT) Anatomical Region Laterality Modality Abdomen Computed Tomogra phy 04/24/2025 10:3 4 AM CDT Impressions 04/28/2025 10:08 AM CDT IMPRESSION: 1. 1.4 cm segment VIII nonenhancing cystic liver lesion grossly unchanged in size since 07/30/2024 when it was PET positive likely treated metastasis. Tiny hepatic cyst near the dome unchanged. Narrative 04/28/2025 10:08 AM CDT EXAMINATION: CT abdomen pelvis with and without contrast DATE: 04/24/2025 11:00 AM HISTORY: Liver lesion. History of colon cancer COMPARISON: MRI abdomen 04/11/2025. CT chest abdomen and pelvis 02/24/2025. PET CT 07/30/2024 TECHNIQUE: Standard technique was performed after the IV administration of 100 ml Isovue 300. Two-dimensional sagittal and coronal reformatted images obtained. GFR 74. The examination was performed with the adjustment of mA according to the patient size and/or the use of Iterative Reconstruction Technique. FINDINGS: 5 mm subpleural right lower lobe and 3 mm subpleural left lower lobe pulmonary nodules unchanged since 07/30/2024. Mild subpleural atelectasis/scarring in the lung bases. 1.4 cm segment VIII nonenhancing cystic liver lesion unchanged in size since 02/24/2025 similar in size to PET CT 07/30/2024 when it was FDG avid. Tiny 4 mm nonenhancing cyst in segment VII near the dome. No new hepatic mass. Spleen, gallbladder, pancreas, and right adrenal gland unremarkable. Subcentimeter left adrenal gland thickening unchanged. Few tiny bilateral renal cysts. Minimal abdominal aortic atherosclerosis. Prior partial proximal colectomy. Moderate to large amount of fecal material in segments of the colon. No bowel obstruction or inflammation. No mesenteric or retroperitoneal lymphadenopathy. Multiple small uterine fibroids a few are calcified. No pelvic mass, free fluid, or lymphadenopathy. No new suspicious lytic or blastic lesion. Thoracolumbar scoliosis. Multilevel thoracolumbar spondylosis with mild multilevel listhesis. Procedure Note Abran Chicas MD - 04/28/2025 EXAMINATION: CT abdomen pelvis with and without contrast DATE: 04/24/2025 11:00 AM HISTORY: Liver lesion. History of colon cancer COMPARISON: MRI abdomen 04/11/2025. CT chest abdomen and pelvis 02/24/2025. PET CT 07/30/2024 TECHNIQUE: Standard technique was performed after the IV administration of 100 ml Isovue 300. Two-dimensional sagittal and coronal reformatted images obtained. GFR 74. The examination was performed with the adjustment of mA according to the patient size and/or the use of Iterative Reconstruction Technique. FINDINGS: 5 mm subpleural right lower lobe and 3 mm subpleural left lower lobe pulmonary nodules unchanged since 07/30/2024. Mild subpleural atelectasis/scarring in the lung bases. 1.4 cm segment VIII nonenhancing cystic liver lesion unchanged in size since 02/24/2025 similar in size to PET CT 07/30/2024 when it was FDG avid. Tiny 4 mm nonenhancing cyst in segment VII near the dome. No new hepatic mass. Spleen, gallbladder, pancreas, and right adrenal gland unremarkable. Subcentimeter left adrenal gland thickening unchanged. Few tiny bilateral renal cysts. Minimal abdominal aortic atherosclerosis. Prior partial proximal colectomy. Moderate to large amount of fecal material in segments of the colon. No bowel obstruction or inflammation. No mesenteric or retroperitoneal lymphadenopathy. Multiple small uterine fibroids a few are calcified. No pelvic mass, free fluid, or lymphadenopathy. No new suspicious lytic or blastic lesion. Thoracolumbar scoliosis. Multilevel thoracolumbar spondylosis with mild multilevel listhesis. IMPRESSION: 1. 1.4 cm segment VIII nonenhancing cystic liver lesion grossly unchanged in size since 07/30/2024 when it was PET positive likely treated metastasis. Tiny hepatic cyst near the dome unchanged. Mir Andrade MD CT ORDERABLES Final Result * POC CREATININE (04/24/2025 10:29 AM CDT) CREATININE POC 0.80 0.60 - 1.30 mg/dL 04/24/2025 10:[address] Comment:The GFR result is no t clinically significant on patients <18 or >70 years of age. GFR POC >60 mL/min/1.7 3 sq meter 04/24/2025 10:[address] Comment:eGFR calculated with 2020 CKD-EPI equation. Vegetarian diet, extremely high or low muscle mass, and may affect results. Cystatin C with Glomerular Filtration Rate is a suitable alternative for these patients. Blood, whole 04/24/2025 10:2 9 AM CDT 04/24/2025 10:33 AM CDT Mir Andrade MD POINT OF CARE TESTING Final Res ult [facility] [address] CLIA# [id number] [address] [place] [address] * CBC WITH AUTODIFFERENTIAL (04/15/2025 12:41 PM CDT) Blood us Mir Andrade MD HEMATOLOGY ORDERABLES Final Res ult * MRI ABDOMEN (04/11/2025 9:55 AM CDT) Anatomical Region Laterality Modality Magnetic Resonan ce Mir Andrade MD MR ORDERABLES Final Result from Last 3 Months Insurance [facility] Care Teams Reference Services Head Relationship Specialty Start Date End Date Ty Reynolds MD PCP - General Family Practice 08/13/24
--- OUTSIDE RECORDS SUMMARY | 2025-07-01 07:51 | XMS_ITS | Clinical Summary ---
Author Organization 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
== END 2025-07-01 07:47 | disposition home or self-care (01) ==
PROVIDERS: PCP Family Medicine Adolescent Medicine; Visit Provider Internal Medicine Hematology & Oncology
DX: C18.9 Malignant neoplasm of colon, unspecified (principal); R91.8 Other nonspecific abnormal finding of lung field
CPT/HCPCS: 71260; 74177; Q9967

== ENCOUNTER 2025-07-01 08:58 | Outpatient (CLI) | payer MEDICARE, SELFPAY ==
--- OUTSIDE RECORDS SUMMARY | 2010-06-17 04:15 | XMS_ITS | Continuity of Care Document ---
Author Organization [facility] [place] [facility] Address [address] [place] [address] Phone Care Team Providers Care Supervisor Harvesting Name Role Phone Ramires OD, Emeka Unavailable Unavailable Procedures Procedure Date Eye Exam & Treatment Refraction Eye Exam & Treatment Refraction Eye Exam & Treatment Refraction Advance Directives Directive Yes / No Effective Date File Name No Information Encounters Encounter Description Practice Location Reason(s) For Visit Diagnoses Date Provider Providers Copied on Encounter [facility], [address] [place] [address] [address], [place], [place], [id number], tel:[phone] [facility] No Information Sep-3 0-201 0 Ramires OD Emeka. [address], [place], [place], [facility], . tel:[phone] [facility], [address] [place] [address] [address], [place], [place], [id number], tel:[phone] [facility] No Information Sep-0 3-200 9 Ramires OD Emeka. [address], [place], [place], [facility], . tel:[phone] [facility], [address] [place] [address] [address], [place], [place], [id number], tel:[phone] [facility] No Information January-2 2-200 8 Ramires OD Emeka. [address], [place], [address], [place]. tel:[phone] Family History Family Member Type Diagnosis Age At Onset No Information Payers Payer name Insurance type Covered libertarian ID Authoriza tion(s) [place] [id number] Social History Type Description Quantity Date Captured [...]
[2025-07-01 09:31] LABS: Hematocrit 40.7 % (37.0-47.0); Hemoglobin 13.1 g/dL (12.0-15.0); Immature Granulocyte Percent A 0.4 % (0-0.5); Lymphocytes Absolute Auto 0.91 K/mm3 (0.9-3.2); Mean Corpuscular HGB Conc 32.2 g/dl (32-36); Mean Corpuscular Hemoglobin 31.5 pg (26-34); Mean Corpuscular Volume 97.8 fl (80-100); Nucleated Red Blood Cells Absolute Auto 0.000 K/mm3 (0.0-0.012); Nucleated Red Blood Cells Perc 0.0 % (0.0-0.2); Platelet Count Result 203 k/mm3 (150-375); Red Blood Count 4.16 M/mm3 (4.2-5.4); White Blood Count 5.3 K/mm3 (4.5-10.0)
--- OUTSIDE RECORDS SUMMARY | 2025-07-01 09:49 | XMS_ITS | Clinical Summary ---
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
--- OUTSIDE RECORDS SUMMARY | 2025-07-01 09:49 | XMS_ITS | Clinical Summary ---
Author Organization [facility] Milag[address] Patterson Address [address] [place] [address] Care Team Providers Care Environmental Compliance Engineer Name Role Phone Ty Reynolds MD Primary Care Provider [phone]- [phone] Allergies No known active allergies Medications calcium [...] Type Department Care Team Description 06/24/2025 Telephone [facility] Surgical Oncology [place] [address] [place] [address] Maria D Mclean MD Referral (Authorization For MRI) 06/23/2025 Telephone [facility] Surgical Oncology [place] [address] [place] [address] Maria D Mclean MD MRI of the abdomen 06/23/2025 Orders Only [facility] Oncology and Hematology - [place] [address] [place] [address] Mir Andrade MD Malignant neoplasm of colon, unspecified part of colon (CMS/HCC) 06/18/2025 Telephone [facility] Surgical Oncology [place] [address] [place] [address] Maria D Mclean MD images, labs and consult; labs and scans before consult 06/17/2025 Orders Only [facility] Oncology and Hematology - [place] [address] [place] [address] Mir Andrade MD 06/16/2025 9:15 AM CDT Office Visit [facility] Oncology and Hematology - [place] [address] [place] [address] Mir Andrade MD Malignant neoplasm of colon, unspecified part of colon (CMS/HCC) (Primary Dx) 06/09/2025 Orders Only [facility] Oncology and Hematology - [place] [address] [place] [address] Mir Andrade MD Malignant neoplasm of colon, unspecified part of colon (CMS/HCC) 06/04/2025 Telephone [facility] Surgical Oncology [place] [address] [place] [address] Maria D Mclean MD consult 06/03/2025 Orders Only [facility] Oncology and Hematology - [place] [address] [place] [address] Mir Andrade MD Malignant neoplasm of colon, unspecified part of colon (CMS/HCC) (Primary Dx); Liver lesion 05/26/2025 Orders Only [facility] Oncology and Hematology - [place] [address] [place] [id number] Mir Andrade MD Malignant neoplasm of colon, unspecified part of colon (CMS/HCC) 05/20/2025 External Device Data STL ABSTRACTION Provider, Abstract 05/12/2025 Orders Only [facility] Oncology and Hematology [address] [place] [id number] Mir Andrade MD Malignant neoplasm of colon, unspecified part of colon (CMS/HCC) 05/09/2025 7:44 AM CDT - 05/09/2025 12:26 PM CDT Hospital Encounter [place] [address] [place] [address] Mir Andrade MD 7, [facility] Liver lesion Discharge Disposition: Home or Self Care 05/06/2025 External Device Data STL ABSTRACTION Provider, Abstract 05/05/2025 9:00 AM CDT Office Visit [facility] Oncology and Hematology [facility] [address] [place] [address] Mir Andrade MD Malignant neoplasm of colon, unspecified part of colon (CMS/HCC) (Primary Dx) 05/05/2025 Orders Only [facility] Oncology and Hematology - [address] [place] [address] Mir Andrade MD 04/28/2025 Orders Only [facility] Oncology and Hematology - [place] [address] [place] [address] Mir Andrade MD Malignant neoplasm of colon, unspecified part of colon (CMS/HCC) 04/24/2025 10:05 AM CDT - 04/24/2025 11:59 PM CDT Hospital Encounter [facility] [address] [address] Mir Andrade MD Discharge Disposition: Home or Self Care 04/22/2025 Orders Only [facility] Oncology and Hematology - [place] [address] [place] [address] Mir Andrade MD Liver lesion (Primary Dx) 04/21/2025 Orders Only [facility] Oncology and Hematology - [place] [address] [place] [address] Mir Andrade MD 04/16/2025 Orders Only [facility] Oncology and Hematology - [address] [place] [address] Mir Andrade MD 04/14/2025 Orders Only [facility] Oncology and Hematology - [address] [place] [address] Mir Andrade MD Malignant neoplasm of colon, unspecified part of colon (CMS/HCC) 04/10/2025 Abstract [facility] Oncology and Hematology [facility] [address] [place] [address] Mir Andrade MD 04/02/2025 External Device Data [...] Description 07/04/2025 12:00 PM CDT Video Visit [facility] Surgical Oncology [place] [address] [facility] [address] [place] [address] Maria D Mclean MD [address] 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 MECHANIC Office Visit [facility] Oncology and Hematology - [place] [address] [facility] [address] [place] [address] Mir Andrade MD [address] [facility] [address] [place] [address] Health Maintenance Due Date Last Done Comments DTAP/TDAP/TD VACCINES (1 - Tdap) 1964 PNEUMOCOCCAL VACCINE 50+ YEARS (1 of 1 - PCV) 04/01/19 95 ZOSTER VACCINE (1 of 2) 1995 OSTEOPOROSIS SCREENING 2010 RSV VACCINE (60+ or ) (1 - 1-dose 75+ series) 2020 [place] Prev entative Visit/Annual Wellness Visit 09/18/2024 INFLUENZA [...] CT guidance. DICTATION LOCATION: Location 1 - [facility] Narrative 05/09/2025 4:16 PM CDT EXAMINATION: CORE NEEDLE BIOPSY OF LIVER USING CT GUIDANCE DATE: 05/09/2025 10:03 AM HISTORY: 80 years-old Female with breast cancer and liver lesion. ANESTHESIA: The procedure was performed with local anesthesia. PHYSICIAN(S): Dr. Camron Hamilton MD TECHNIQUE: The risks, benefits and alternatives were discussed and informed consent was obtained. Prior to beginning the procedure, [place] Protocol was performed to confirm the patient's [...] was obtained. Prior to beginning the procedure, [place] Protocol was performed to confirm the patient's [...] CT guidance. DICTATION LOCATION: Location 1 - [facility] Mir Andrade MD CT ORDERABLES Final Result * PATHOLOGY (05/09/2025 9:58 AM CDT) CASE REPORT Surgical Pathology Report Case: [id number] Authorizing Provider: Camron Hamilton MD Collected: 05/09/2025 09:58 AM Ordering Location: [facility] Received: 05/09/2025 02:10 PM Brian Pathologist: Erica Barfield MD Specimen: Liver 9:36 AM CDT [facility] [employer] [facility] FINAL DIAGNOSIS Liver, lesion, CT-guided core biopsy: - 2 mm focus of acellular mucin with no viable tumor cells identified, history of colon adenocarcinoma, status post chemotherapy, see microscopic. 9:36 AM CDT [facility] LABORATORY [facility] at 0936 CDT GROSS DESCRIPTION Received in one container labeled Elba Sandoval and liver are 4 red-mir tissue cores measuring 1.4, 1.7, 1.2 and 1.3 cm in length and each measuring less than 0.1 cm in diameter. All are submitted in cassettes A1 and A2. [facility] 5 9:36 AM [facility] MICROSCOPIC DESCRIPTION The slides are labeled [id number] and Elba Sandoval. Sections of the liver [...] shows normal liver trabecula with no loss. 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 Note on use of immunohistochemistry reagents and in situ hybridization probes: These tests were developed and their performance characteristics determined by [facility], Department of Laboratory Medicine. It has not [...] part or completely in the following laboratories: [facility], CLIA #[id number] [address] [place] [address] [facility], CLIA #[id number] [address] [place] [address] [facility], CLIA #[id number] [address] [place] [address] This report was created with the [employer] voice-activated dictation system. Inherent to this system is the possibility of syntax, grammar, punctuation and other errors that could impact the interpretation of the report. If there are interpretative questions about aspects of this report, please contact the performing pathologist. 9:36 AM CDT [facility] LABORATORY SERVICES [facility] Tissue ENTIRE LIVER / Unknown Collection / Unknown 05/09/2025 9:58 AM CDT 05/09/2025 2:10 PM CDT us Camron Hamilton MD PATHOLOGY/CYTOLOGY ORDERABLES Final Result [facility] SERVICES [facility] CLIA# [id number] [address] [place] [address] * (ABNORMAL) CBC WITH DIFFERENTIAL (05/09/2025 8:08 AM CDT) WBC 4.1 4.0 - 9.8 K/uL 05/09/2025 8:22 AM CDT [facility] LABORATORY SERVICES - [facility] RBC 4.11 3.90 - 4.90 M/uL 05/09/2025 8:22 AM CDT [facility] LABORATORY SERVICES - [facility] HEMOGLOBIN 12.9 11.8 - 14.8 g/dL 05/09/2025 8:22 AM CDT [facility] LABORATORY SERVICES - [facility] HEMATOCRIT 39.4 35.5 - 44.0 % 05/09/2025 8:22 AM CDT [facility] LABORATORY SERVICES - [facility] MCV 95.9 82.0 - 99.0 fL 05/09/2025 8:22 AM CDT [facility] - [facility] MCH 31.4 27.2 - 32.6 pg 05/09/2025 8:22 AM CDT [facility] - [facility] MCHC 32.7 31.5 - 35.5 g/dL 05/09/2025 8:22 AM CDT [facility] - [facility] RDW 14.4 11.5 - 14.5 % 05/09/2025 8:22 AM CDT [facility] - [facility] RDW-STDEV 49.9(H) 37.1 - 48.7 fL 05/09/2025 8:22 AM [facility] SERVICES - . [facility] PLATELETS 192 140 - 350 K/uL 05/09/2025 8:22 AM [facility] SERVICES - . [facility] MPV 10.8 9.3 - 12.4 fL 05/09/2025 8:22 AM [facility] - [facility] NEUTROPHILS 58 % 05/09/2025 8:22 AM [facility] [facility] - [facility] LYMPHOCYTES 34 % 05/09/2025 8:22 AM [facility] SERVICES - . [place] MONOCYTES 5 % 05/09/2025 8:22 AM [facility] SERVICES - . [facility] EOSINOPHILS 2 % 05/09/2025 8:22 AM [facility] - [facility] BASOPHILS 1 % 05/09/2025 8:22 AM [employer] SERVICES - . [facility] IMMATURE GRANULOCYTES 0 % 05/09/2025 8:22 AM [facility] LABORAT[facility] SERVICES - . [place] NEUTROPHIL ABSOLUTE 2.39 1.90 - 7.00 K/uL 05/09/2025 8:22 AM [employer] SERVICES - . [facility] LYMPHOCYTE ABSOLUTE 1.40 0.70 - 4.50 K/uL 05/09/2025 8:22 AM [employer] SERVICES - . [facility] MONOCYTE ABSOLUTE 0.20 0.10 - 1.30 K/uL 05/09/2025 8:22 AM [employer] SERVICES - . [facility] EOSINOPHIL ABSOLUTE 0.07 0.00 - 0.70 K/uL 05/09/2025 8:22 AM [facility] - [facility] BASOPHILS ABSOLUTE 0.05 0.00 - 0.20 K/uL 05/09/2025 8:22 AM [facility] SERVICES - . [facility] IMMATURE GRANULOCYTES ABSOLUTE 0.01 0.00 - 0.03 K/uL 05/09/2025 8:22 AM [facility] - [facility] Blood Venipuncture / Unknown 05/09/2025 8:08 AM CDT 05/09/2025 8:14 AM CDT Sussy Gloria MD HEMATOLOGY ORDERABLES Final Resu lt Performing Organization Address [facility]/ZIP Co de Phone Number [facility]# [id number] [address] [place] [address] * (ABNORMAL) PROTIME-INR (05/09/2025 8:08 AM CDT) PROTIME 12.6(L) 12.7 - 15.1 Seconds 05/09/2025 8:31 AM CDT [facility] LABORATORY [facility] INR 0.9 0.9 - 1.1 05/09/2025 8:31 AM CDT [facility] LABOR[facility]ORY [facility] Blood Venipuncture / Unknown 05/09/2025 8:08 AM CDT 05/09/2025 8:14 AM CDT Narrative [facility] LABORATORY [facility] - 05/09/2025 8:31 AM CDT INR Therapeutic Range: Adult: 2.0 - 3.0 for pulmonary embolism or prophylaxis against venous thrombosis or systemic embolization. 2.0 - 3.0 for patients with tissue heart valves. 2.5 - 3.5 for patients with mechanical heart valves or post [place]. Pediatric (12 years and under): 1.5 - 3.0 Although the target range in children is not well established, INR values of 1.5 - 3.0 are recommended for most patients. Higher values have been used in children with prosthetic cardiac valves and hereditary clotting disorders. (<3 days) therapeutic ranges have not been established. Sussy Gloria MD HEMATOLOGY ORDERABLES Final Resu lt [facility]# [id number] [address] [place] [address] * CT ABDOMEN PELVIS W WO CONTRAST [...] ult ALEJANDRA ROGEL [address] CLIA# [id number] [address] [place] [address] * CBC WITH AUTODIFFERENTIAL (04/15/2025 12:41 PM CDT) Blood Mir Andrade MD HEMATOLOGY ORDERABLES Final Res ult * MRI ABDOMEN (04/11/2025 9:55 AM CDT) Anatomical Region Laterality Modality Magnetic Resonan ce Mir Andrade MD MR ORDERABLES Final Result from Last 3 Months Insurance [facility] Care Teams Environmental Compliance Engineer Relationship Specialty Start Date End Date Ty Reynolds MD PCP - General Family Practice 08/13/24
[2025-07-01 11:54] LABS: Alanine Aminotransferase 57 U/L (6-35); Albumin Level 4.3 g/dL (3.5-5.1); Alkaline Phosphatase 97 U/L (38-126); Anion Gap 8 mmol/L (4-12); Aspartate Amino Transferase 70 U/L (14-36); Bilirubin,Total 0.4 mg/dL (0.2-1.3); Blood Urea Nitrogen 15 mg/dL (7-17); Calcium 10.0 mg/dL (8.4-10.2); Carbon Dioxide 27 mmol/L (22-30); Chloride 105 mmol/L (98-107); Estimated Glomerular Filt Rate > 60; Glucose 98 mg/dL (65-110); Potassium 4.4 mmol/L (3.4-5.0); Sodium 140 mmol/L (137-145); Total Protein 7.3 g/dL (6.3-8.2)
[2025-07-01 11:56] LABS: INR 1.0; Prothrombin Time 13.3 Seconds (11.1-14.7)
== END 2025-07-01 08:59 | disposition home or self-care (01) ==
LOC: ANHLAB 09:02
PROVIDERS: PCP Family Medicine Adolescent Medicine
DX: R16.0 Hepatomegaly, not elsewhere classified (principal)
CPT/HCPCS: 36415; 71260; 74177; 80053; 85025; 85610; Q9967

== ENCOUNTER 2025-07-03 13:49 | Outpatient (CLI) | payer MEDICARE, SELFPAY ==
--- OUTSIDE RECORDS SUMMARY | 2010-06-17 04:15 | XMS_ITS | Continuity of Care Document ---
Author Organization [facility] Address [address] [place] [address] Phone Care Team Providers Care Environmental Emergencies Planner Name Role Phone Ramires OD, Emeka Unavailable Unavailable Procedures Procedure Date Eye Exam & Treatment Refraction Eye Exam & Treatment Refraction Eye Exam & Treatment Refraction Advance Directives Directive Yes / No Effective Date File Name No Information Encounters Encounter Description Practice Location Reason(s) For Visit Diagnoses Date Provider Providers Copied on Encounter [facility], [address] [place] [address] [address], [place], [place], [id number], tel:[phone] [facility] No Information Sep-3 0-201 0 Ramires OD Emeka. [address], [place], [place], [facility], . tel:[phone] [facility], [address] [place] [address] [address], [place], [place], [id number], tel:[phone] [facility] No Information Sep-0 3-200 9 Ramires OD Emeka. [address], [place], [place], [facility], . tel:[phone] [facility], [address] [place] [address] [address], [place], [place], [id number], tel:[phone] [facility] No Information January-2 2-200 8 Ramires OD Emeka. [address], [address], [place], [address], [place]. tel:[phone] Family History Family Member Type Diagnosis Age At Onset No Information Payers Payer name Insurance type Covered alliance party ID Authoriza tion(s) [place] [id number] Social History Type Description Quantity Date Captured Comments Sex Female Smoking Status No Information Chief Complaint And Reason For Visit No Information Reason For Referral Reason For Referral No Information History Of Present Illness Encounter Date Complaint History Of Prese nt Illness No Information Functional Status Date Functional Assessmen t No Information Instructions Date Instruction Additional Infor mation No Information Assessments Type Assessment Date No Information Patient Care Teams Name Effective Dates (start - stop) Status Members No Information
--- OUTSIDE RECORDS SUMMARY | 2025-07-03 15:52 | XMS_ITS | Clinical Summary ---
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 MEDICARE ADVANTAGE [facility] MEDICARE Address: [address] [address] Care Teams Linux System Engineer Relationship Specialty Start Date End Date Ty Reynolds MD PCP - General Family Medicine 04/22/22
--- OUTSIDE RECORDS SUMMARY | 2025-07-03 15:52 | XMS_ITS | Clinical Summary ---
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 Encounters Date Type Department Care Team Description 07/03/2025 Telephone [facility] Surgical Oncology [place] [address] [place] [address] Maria D Mclean MD Referral 07/02/2025 Orders Only [facility] Oncology and Hematology - [place] [address] [place] [address] Mir Andrade MD 06/24/2025 Telephone [facility] Surgical Oncology [place] [address] [place] [address] Maria D Mclean MD Referral (Authorization For MRI) 06/23/2025 Telephone [facility] Surgical Oncology [place] [address] [place] [address] Maria D Mclean MD MRI of the abdomen 06/23/2025 Orders Only [facility] Oncology and Hematology - [place] [address] [place] [address] Mir Andrade MD Malignant neoplasm of colon, unspecified part of colon (CMS/HCC) 06/18/2025 Telephone [facility] Surgical Oncology [place] [address] [place] [address] Maria D Mclean MD images, labs and consult; labs and scans before consult 06/17/2025 Orders Only [facility] Oncology and Hematology - [place] [place] [address] Mir Andrade MD 06/16/2025 9:15 AM CDT Office Visit [facility] Oncology and Hematology - [place] [address] [place] [address] Mir Andrade MD Malignant neoplasm of colon, unspecified part of colon (CMS/HCC) (Primary Dx) 06/09/2025 Orders Only [facility] Oncology and Hematology - [address] [place] [address] Mir Andrade MD Malignant neoplasm of colon, unspecified part of colon (CMS/HCC) 06/04/2025 Telephone [facility] Surgical Oncology [place] [address] [place] [address] Maria D Mclean MD consult 06/03/2025 Orders Only [facility] Oncology and Hematology [facility] [address] [place] [address] Mir Andrade MD Malignant neoplasm of colon, unspecified part of colon (CMS/HCC) (Primary Dx); Liver lesion 05/26/2025 Orders Only [facility] Oncology and Hematology [facility] [address] [place] [address] Mir Andrade MD Malignant neoplasm of colon, unspecified part of colon (CMS/HCC) 05/20/2025 External Device Data STL ABSTRACTION Provider, Abstract 05/12/2025 Orders Only [facility] Oncology and Hematology [facility] [address] [place] [address] Mir Andrade MD Malignant neoplasm of colon, unspecified part of colon (CMS/HCC) 05/09/2025 7:44 AM CDT - 05/09/2025 12:26 PM CDT [facility] [address] [place] [address] Mir Andrade MD [address] [facility] [address] Liver lesion Discharge Disposition: Home or Self Care 05/06/2025 External Device Data STL ABSTRACTION Provider, Abstract 05/05/2025 9:00 AM CDT Office Visit [facility] Oncology and Hematology [facility] [address] [place] [address] Mir Andrade MD Malignant neoplasm of colon, unspecified part of colon (CMS/HCC) (Primary Dx) 05/05/2025 Orders Only [facility] Oncology and Hematology - [address] [place] [address] Mir Andrade MD 04/28/2025 Orders Only [facility] Oncology and Hematology - [place] [address] [place] [address] Mir Andrade MD Malignant neoplasm of colon, unspecified part of colon (CMS/HCC) 04/24/2025 10:05 AM CDT - 04/24/2025 11:59 PM CDT Hospital Encounter [facility] [address] [address] Mir Andrade MD Discharge Disposition: Home or Self Care 04/22/2025 Orders Only [facility] Oncology and Hematology - [place] [address] [place] [address] Mir Andrade MD Liver lesion (Primary Dx) 04/21/2025 Orders Only [facility] Oncology and Hematology - [place] [address] [place] [address] Mir Andrade MD 04/16/2025 Orders Only [facility] Oncology and Hematology - [place] [place] [address] Mir Andrade MD 04/14/2025 Orders Only [facility] Oncology and Hematology - [place] [place] [address] Mir Andrade MD Malignant neoplasm of colon, unspecified part of colon (CMS/HCC) 04/10/2025 Abstract [facility] Oncology and Hematology - [address] [place] [address] Mir Andrade MD 04/02/2025 External Device Data [...] 07/04/2025 12:00 PM CDT Video Visit [facility] Surgical Oncology [place] [address] [facility] [address] [place] [address] Maria D Mclean MD [address] [place] [address] 07/28/2025 8:45 AM NEGATIVE SPOTTER Office Visit [facility] Oncology and Hematology - [place] [address] [place] [address] Mir Andrade MD [address] [facility] [address] [place] [address] Health Maintenance Due Date Last Done Comments DTAP/TDAP/TD VACCINES (1 - Tdap) 1964 PNEUMOCOCCAL VACCINE 50+ YEARS (1 of 1 - PCV) 04/01/19 95 ZOSTER VACCINE (1 of 2) 1995 OSTEOPOROSIS SCREENING 2010 RSV VACCINE (60+ or ) (1 - 1-dose 75+ series) 2020 Medicare [place]) Prev entative Visit/Annual Wellness Visit 09/18/2024 INFLUENZA VACCINE (#1) 2025 Procedures Procedure Name Priority Date/Time Associated Diagnosis Comments CT CHEST ABDOMEN PELVIS W CONT Routine 07/01/2025 11:55 AM CDT COMPREHENSIVE METABOLIC PANEL Routine 06/16/2025 1:28 PM [...] CDT from Last 3 Months Results * CT CHEST ABDOMEN PELVIS W CONT (07/01/2025 11:55 AM CDT) Anatomical Region Laterality Modality Chest Computed Tomogra phy us Mir Andrade MD CT ORDERABLES Final Result * COMPREHENSIVE METABOLIC PANEL (06/16/2025 1:28 PM [...] CT guidance. DICTATION LOCATION: Location 1 - [facility] Narrative 05/09/2025 4:16 PM CDT EXAMINATION: CORE NEEDLE BIOPSY OF LIVER USING CT GUIDANCE DATE: 05/09/2025 10:03 AM HISTORY: 80 years-old Female with breast cancer and liver lesion. ANESTHESIA: The procedure was performed with local anesthesia. PHYSICIAN(S): Dr. Camron Hamilton MD TECHNIQUE: The risks, benefits and alternatives were discussed and informed consent was obtained. Prior to beginning the procedure, Lignite Protocol was performed to confirm the patient's [...] was obtained. Prior to beginning the procedure, Lignite Protocol was performed to confirm the patient's [...] CT guidance. DICTATION LOCATION: Location 1 - [facility] Mir Andrade MD CT ORDERABLES Final Result * PATHOLOGY (05/09/2025 9:58 AM CDT) CASE REPORT Surgical Pathology Report Case: [id number] Authorizing Provider: Camron Hamilton MD Collected: 05/09/2025 09:58 AM Ordering Location: [facility] Received: 05/09/2025 02:10 PM Brian Pathologist: Erica Barfield MD Specimen: Liver 9:36 AM T [facility] FINAL DIAGNOSIS Liver, lesion, CT-guided core biopsy: - 2 mm focus of acellular mucin with no viable tumor cells identified, history of colon adenocarcinoma, status post chemotherapy, see microscopic. 9:36 AM T [facility] at [address] [facility] DESCRIPTION Received in one container labeled Elba Sandoval and liver are 4 red-mir tissue cores measuring 1.4, 1.7, 1.2 and 1.3 cm in length and each measuring less than 0.1 cm in diameter. All are submitted in cassettes A1 and A2. [facility] 9:36 AM T [facility] MICROSCOPIC DESCRIPTION The slides are labeled [id number] and Elba Sandoval. Sections of the liver [...] liver trabecula with no loss. 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 Note on use of immunohistochemistry reagents and in situ hybridization probes: These tests were developed and their performance characteristics determined by [facility], Department of Laboratory Medicine. It has not [...] part or completely in the following laboratories: [facility], CLIA #[id number] [address] [place] [address] [facility], CLIA #[id number] [address] [place] [address] [facility] [place], CLIA #[id number] [address] [place] [address] This report was created with the [employer] voice-activated dictation system. Inherent to this system is the possibility of syntax, grammar, punctuation and other errors that could impact the interpretation of the report. If there are interpretative questions about aspects of this report, please contact the performing pathologist. 9:36 AM CDT [facility] Tissue ENTIRE LIVER / Unknown Collection / Unknown 05/09/2025 9:58 AM CDT 05/09/2025 2:10 PM CDT Camron Hamilton MD PATHOLOGY/CYTOLOGY ORDERABLES Final Result [id number] [address] [place], [place] [address] [address] * (ABNORMAL) CBC WITH DIFFERENTIAL (05/09/2025 8:08 AM CDT) WBC 4.1 4.0 - 9.8 K/uL 05/09/2025 8:22 AM CDT [facility] RBC 4.11 3.90 - 4.90 M/uL 05/09/2025 8:22 AM T [facility] HEMOGLOBIN 12.9 11.8 - 14.8 g/dL 05/09/2025 8:22 AM CDT [facility] HEMATOCRIT 39.4 35.5 - 44.0 % 05/09/2025 8:22 AM CDT [facility] MCV 95.9 82.0 - 99.0 fL 05/09/2025 8:22 AM CDT [facility] MCH 31.4 27.2 - 32.6 pg 05/09/2025 8:22 AM CDT [facility] MCHC 32.7 31.5 - 35.5 g/dL 05/09/2025 8:22 AM CDT [facility] RDW 14.4 11.5 - 14.5 % 05/09/2025 8:22 AM CDT [facility] RDW-STDEV 49.9(H) 37.1 - 48.7 fL 05/09/2025 8:22 AM CDT [facility] PLATELETS 192 140 - 350 K/uL 05/09/2025 8:22 AM CDT [facility] MPV 10.8 9.3 - 12.4 fL 05/09/2025 8:22 AM CDT [facility] NEUTROPHILS 58 % 05/09/2025 8:22 AM CDT [facility] LYMPHOCYTES 34 % 05/09/2025 8:22 AM CDT [facility] MONOCYTES 5 % 05/09/2025 8:22 AM CDT [facility] EOSINOPHILS 2 % 05/09/2025 8:22 AM CDT [facility] BASOPHILS 1 % 05/09/2025 8:22 AM CDT [facility] IMMATURE GRANULOCYTES 0 % 05/09/2025 8:22 AM CDT [facility] NEUTROPHIL ABSOLUTE 2.39 1.90 - 7.00 K/uL 05/09/2025 8:22 AM CDT [facility] LYMPHOCYTE ABSOLUTE 1.40 0.70 - 4.50 K/uL 05/09/2025 8:22 AM CDT [facility] MONOCYTE ABSOLUTE 0.20 0.10 - 1.30 K/uL 05/09/2025 8:22 AM CDT [facility] - . [facility] EOSINOPHIL ABSOLUTE 0.07 0.00 - 0.70 K/uL 05/09/2025 8:22 AM CDT [facility] - . [facility] BASOPHILS ABSOLUTE 0.05 0.00 - 0.20 K/uL 05/09/2025 8:22 AM CDT [facility] - . [facility] IMMATURE GRANULOCYTES ABSOLUTE 0.01 0.00 - 0.03 K/uL 05/09/2025 8:22 AM CDT [facility] Blood Venipuncture / Unknown 05/09/2025 8:08 AM CDT 05/09/2025 8:14 AM CDT us Sussy Juani MENA HEMATOLOGY ORDERABLES Final Resu lt [facility]# [id number] [address] [place] [address] * (ABNORMAL) PROTIME-INR (05/09/2025 8:08 AM CDT) PROTIME 12.6(L) 12.7 - 15.1 Seconds 05/09/2025 8:31 AM CDT [facility] INR 0.9 0.9 - 1.1 05/09/2025 8:31 AM CDT [facility] Blood Venipuncture / Unknown 05/09/2025 8:08 AM CDT 05/09/2025 8:14 AM CDT Narrative [facility] - [facility] - 05/09/2025 8:31 AM CDT INR Therapeutic Range: Adult: 2.0 - 3.0 for pulmonary embolism or prophylaxis against venous thrombosis or systemic embolization. 2.0 - 3.0 for patients with tissue heart valves. 2.5 - 3.5 for patients with mechanical heart valves or post CT. Pediatric (12 years and under): 1.5 - 3.0 Although the target range in children is not well established, INR values of 1.5 - 3.0 are recommended for most patients. Higher values have been used in children with prosthetic cardiac valves and hereditary clotting disorders. (<3 days) therapeutic ranges have not been established. Sussy Gloria MD HEMATOLOGY ORDERABLES Final Resu lt [facility]# [id number] [address] [facility] [place]HEL [place] [address] * CT ABDOMEN PELVIS W WO CONTRAST [...] Tiny hepatic cyst near the dome unchanged. us Mir Andrade MD CT ORDERABLES Final [...] 9 AM CDT 04/24/2025 10:33 AM CDT us Mir Andrade MD POINT OF CARE TESTING Final Res ult [facility] CT [address] CLIA# [id number] [address] [place] [id number] * CBC WITH AUTODIFFERENTIAL (04/15/2025 12:41 PM CDT) Blood us Mir Andrade MD HEMATOLOGY ORDERABLES Final Res ult * MRI ABDOMEN (04/11/2025 9:55 AM CDT) Anatomical Region Laterality Modality Magnetic Resonan ce us Mir Andrade MD MR ORDERABLES Final Result from Last 3 Months Insurance [employer] O [facility] [employer] PPO MCR Care Teams Mathematical Statistician Relationship Specialty Start Date End Date Ty Reynolds MD PCP - General Family Practice 08/13/24
--- OUTSIDE RECORDS SUMMARY | 2025-07-03 15:52 | XMS_ITS ---
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 Past Treatment and Therapy Plans No past plan information found. Lifetime Dose Tracking * Chemical Lifetime Dose Automatic Entry Manual Entr y Effective Dose 82.23 mSv 82.23 mSv 0 mSv Total DLP 2,795.05 DLP 2,795.05 DLP 0 DLP CTDIvol Max 33.18 mGy 33.18 mGy 0 mGy
--- OUTSIDE RECORDS SUMMARY | 2025-07-03 15:52 | XMS_ITS | Encounter Summary ---
Author Organization [facility] Address [address] [place] [address] Care Team Providers Care Violin Repairer Name Role Phone yT Reynolds MD Primary Care Provider +1- [phone] Reason for Visit * Reason Onset Date Comments Referral 07/03/2025 Encounter Details Date Type Department Care Team (Late Contact Info) Description 07/03/2025 Telephone [facility] Surgical Oncology [place] [address] [place] [address] Maria D Mclean MD [address] [place] [address] Referral Social History Tobacco Use Types Packs/Day Years Used Date Smoking Tobacco: Never Smokeless Tobacco: Never Alcohol Use Standard Drinks/Week Comments Not Currently 0 (1 standard drink = 0.6 oz pur e alcohol) Occasional Comments Unknown Sex and Gender Information Value Date Recorded Sex Assigned at Not on file Legal Sex Female 10:54 AM CDT Gender Identity Not on file Sexual Orientation Not on file documented as of this encounter Miscellaneous Notes * Telephone Encounter - Florence Mchugh - 07/03/2025 11:40 AM CDT Received call from [facility] stating the AFP needed to be authorized. Called [employer] and per [employer] authorization for AFP is not required. Called [facility] back informed infusion nurse. They will call patient to come back and have lab drawn. documented in this encounter Plan of Treatment Upcoming Encounters Date Type Department Care Team (Late st Contact Info) Description 07/04/2025 12:00 PM CDT Video Visit [facility] Surgical Oncology [place] [address] [place] [address] Maria D Mclean MD [address] [place] [address] 07/28/2025 8:45 AM DAUB COLOR MIXER Office Visit [facility] Oncology and Hematology - [place] [address] [facility] [address] [place] [address] Mir Andrade MD [address] [place] [address] documented as of this encounter Visit Diagnoses Not on filedocumented in this encounter Care Teams Violin Repairer Relationship Specialty Start Date End Date Ty Reynolds MD PCP - General Family Practice 08/13/24 documented as of this encounter
--- OUTSIDE RECORDS SUMMARY | 2025-07-03 15:52 | XMS_ITS | Encounter Summary ---
Author Organization [facility] Address [address] [place] [address] Care Team Providers Care Appeals Reviewer Veteran Name Role Phone Ty Reynolds MD Primary Care Provider +1- [phone] Encounter Details Date Type Department Care Team (Late Contact Info) Description 07/02/2025 Orders Only [facility] Oncology and Hematology - [place] [address] [place] [address] Mir Andrade MD [address] [facility] [address] [place] [address] Social History Tobacco Use Types Packs/Day [...] Department Care Team (Late Contact Info) Description 07/04/2025 12:00 PM CDT Video Visit [facility] Surgical Oncology [place] [address] [place] [address] Maria D Mclean MD [address] [place] [address] 07/28/2025 8:45 AM EXTRACTOR PULLER Office Visit [facility] Oncology and Hematology - [place] [address] [place] [address] Mir Andrade MD [address] [facility] [address] [place] [address] documented as of this encounter Procedures Procedure Name Priority Date/Time Associated Diagnosis Comments CT CHEST ABDOMEN PELVIS W CONT Routine 07/01/2025 11:55 AM CDT documented in this encounter Results * CT CHEST ABDOMEN PELVIS W CONT (07/01/2025 11:55 AM CDT) Anatomical Region Laterality Modality Chest Computed Tomogra phy Mir Andrade MD CT ORDERABLES Final Result documented in this encounter Visit Diagnoses Not on filedocumented in this encounter Care Teams Appeals Reviewer Veteran Relationship Specialty Start Date End Date Ty Reynolds MD PCP - General Family Practice 08/13/24 documented as of this encounter
== END 2025-07-03 13:50 | disposition home or self-care (01) ==
LOC: ANHLAB 13:51
PROVIDERS: PCP Family Medicine Adolescent Medicine
DX: R16.0 Hepatomegaly, not elsewhere classified (principal); R93.2 Abnormal findings on diagnostic imaging of liver and biliary tract
CPT/HCPCS: 82105